=== PATIENT | female | born 1945 | race Caucasian/White ===

== ENCOUNTER 2019-09-14 08:19 | Outpatient (CLI) | payer MEDICARE, BC, SELFPAY ==
[2019-09-14 12:33] LABS: Alanine Aminotransferase 19 U/L (4-35); Albumin Level 4.2 g/dL (3.5-5.1); Alkaline Phosphatase 61 U/L (38-126); Aspartate Amino Transferase 29 U/L (14-36); Bilirubin,Total 0.6 mg/dL (0.2-1.3); Blood Urea Nitrogen 18 mg/dL (7-17); Calcium 9.6 mg/dL (8.4-10.2); Carbon Dioxide 29 mmol/L (22-30); Chloride 99 mmol/L (98-107); Cholesterol 180 mg/dL (0-200); Estimated Glomerular Filt Rate > 60; Glucose 98 mg/dL (65-105); HDL Direct 80 mg/dL; Potassium 4.3 mmol/L (3.4-5.0); Sodium 134 mmol/L (137-145); Triglycerides 101 mg/dL (<150)
[2019-09-14 12:45] LABS: LDL Cholesterol Direct 89 mg/dL
== END 2019-09-14 08:20 | disposition home or self-care (01) ==
PROVIDERS: PCP Internal Medicine; Visit Provider Nurse Practitioner
DX: E78.5 Hyperlipidemia, unspecified (principal)
CPT/HCPCS: 36415; 80053; 80061

== ENCOUNTER 2019-10-05 16:27 | Observation (INO) | payer MEDICARE, BC, SELFPAY ==
[2019-10-05] VITALS (7 sets, daily range): BP systolic 152–192; BP diastolic 71–88; PULSE 60–77; RESP 10–22; TEMP 36.3–37; O2SAT 97–100; BMI 29.9
--- NOTE | ~2019-10-05 | CT_ITS ---
EXAMINATION: CT brain wo con EXAM DATE: 10/05/2019 16:49 INDICATION: Left leg paresthesia. TECHNIQUE: Spiral CT of the head was performed without contrast. Axial, coronal and sagittal images were reviewed. The dose-length product (DLP) for this examination was 605.33 mGy-cm. The exposure w as tailored according to patient size, and iterative reconstruction (ASIR) was used as additional dos e reduction technique. Comparison is made to prior examination from 01/12/2018. FINDINGS: There is no acute intraparenchymal hemorrhage. No evidence of intraparenchymal brain mass lesion. No evidence of acute infarction. Please note that initial head CT has limited sensitivity f or small or acute infarctions. There is mild periventricular and subcortical hypodensity, nonspecific but probably related to small vessel ischemic disease. There is mild prominence of the sulci and v entricles related to cerebral atrophy. There is intracranial carotid arteriosclerosis. There are n o extra-axial collections. There is no mass effect or midline shift. Patient has had bilateral ocul ar lens surgery. Soft tissue is unremarkable. The visualized sinuses and mastoid air cells are well aerated. IMPRESSION: 1. No acute intracranial findings. 2. Chronic age related findings. Reviewed, dictated and finalized at location B. GHT CHECKER
--- NOTE | ~2019-10-05 | MR_ITS ---
EXAMINATION: MR brain/brain stem wo con DATE: 10/06/2019 16:06 INDICATION: Transient ischemic attack. TECHNIQUE: Magnetic resonance imaging (MRI) of the brain and brainstem was performed without intraven ous contrast. Sequences included sagittal and axial T1-weighted FSE, axial diffusion-weighted FS EPI, axial T2*-weighted GRE, axial T2-weighted FLAIR Propeller, and axial T2-weighted Propeller. Apparent diffusion coefficient (ADC) maps were created. COMPARISON: Head CT 10/05/2019 FINDINGS: There are scattered areas of nonspecific increased T2-weighted signal intensity in the cere bral white matter, which is within normal limits for the patient's age. There is no intracranial hemo rrhage, acute infarction, or abnormal intracranial mass lesion. The ventricles are normal in size. Th ere is mild mucosal thickening in the paranasal sinuses. There are likely changes of ocular lens repl acement surgeries. The mastoid air cells are normal. IMPRESSION: 1. Normal aging brain. Reviewed, dictated and finalized at location A. L SPECIALIST IMPRESSION: 1. Normal aging brain.
--- NOTE | ~2019-10-05 | XR_ITS ---
EXAMINATION: XR chest 1V portable DATE: 10/05/2019 16:55 INDICATION: Left hemiparesis. TECHNIQUE: A single frontal view of the chest was obtained. COMPARISON: Chest single view 05/25/2017 FINDINGS: There is no pneumonia, pleural effusion, or pneumothorax. Cardiomegaly is noted. IMPRESSION: 1. Cardiomegaly. Reviewed, dictated and finalized at location A. F RADIATION THERAPIST IMPRESSION: 1. Cardiomegaly.
--- NOTE | 2019-10-05 16:31 | ECG_ITS ---
Measurements Intervals [place] Rate: 66 P: 58 CO: 181 QRS: 19 QRSD: 91 T: 40 QT: 409 QTc: 431 Interpretive Statements SINUS RHYTHM BORDERLINE R WAVE PROGRESSION, ANTERIOR LEADS BASELINE ARTIFACT- I, II, III, AVL BORDERLINE ECG Electronically Signed On 10-05-2019 16:41:11 THERMODYNAMICIST by Ronen Huggins D.O.
[2019-10-05 16:36] LABS: Glucose Point of Care 90 (65-105)
--- NOTE | 2019-10-05 16:44 | PC.NURSE ---
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
--- NOTE | 2019-10-05 16:47 | ED.NEUROSD ---
HPI - Neuro Symptoms/Deficit General Chief Complaint: Suspected CVA Stated Complaint: l leg numbness Time Seen by Provider: 10/05/19 16:55 Source: patient Mode of arrival: ambulatory Limitations: no limitations History of Present Illness HPI Narrative: A 74 y/o female pt presents to the ED, with c/o of LLE weakness and lt facial numbness that began at 1500 (2 hours ago). Pt states she was in the grocery store when she noticed her LLE feeling weak and had difficulty walking, accompanied with lt sided facial numbness. She was able to walk to her car about 10-15 minutes after the leg weakness began, but when she arrived home she noticed her Sx returning and felt dizzy. She states that her LLE weakness has subsided but she still notes having lt sided facial numbness in the ED. Pt states that her facial numbness is not worsening or improving but denies any numbness or tingling to her extremities, or slurred speech. She denies any PMHx of TIA, MT or diabetes but notes having HTN. Pt takes Apirin x 81 mg as her anticoagulation therapy. Pt denies Hx of smoking or drinking. Onset (ago): hour(s) (2) Time: 15:00 Timing confirmed by: spouse Location: left face and left leg Quality: weak (LLE) and numb (lt side facial) Context: sudden onset On Anticoagulants: Yes (Aspirin 81 mg ) Associated symptoms: weakness (LLE) and other (lt sided facial numbness, dizziness, abnormal gait) Related Data Home Medications Medication Instructions Recorded Confirmed aspirin 81 mg tablet,delayed 81 mg PO DAILY 07/29/19 08/05/19 release calcium carbonate 500 mg (1,250 1 tablet PO DAILY 07/29/19 08/05/19 mg)-vitamin D3 400 unit tablet ciclopirox 8 % topical solution 1 applic TOPICAL DAILY 07/29/19 08/05/19 docusate sodium 100 mg capsule 100 mg PO DAILY 07/29/19 08/05/19 Allergies Allergy/AdvReac Type Severity Reaction Status Date / Time meperidine Allergy Unknown Unknown Verified 08/05/19 08:33 MEPERIDINE HCL Allergy Unknown NAUSEA Uncoded 08/05/19 08:33 Review of Systems Review of Systems: All systems reviewed & are unremarkable except as noted in HPI and below Constitutional: Constitutional: Reports weakness (LLE) Musculoskeletal: Musculoskeletal: Reports abnormal gait Neurologic: Reports dizziness, Reports numbness (lt facial) and Denies other (numbness and tingling to extremeties) [facility] Past Medical History Medical History (Updated 10/05/19 @ 18:18 by Kan Denson MD) Anxiety Arthritis Coronary artery disease GERD without esophagitis H/O: HTN (hypertension) Hyperlipidemia Hypothyroidism Hypothyroidism (acquired) Non-ST elevation (NSTEMI) myocardial infarction Surgical History Surgical History (Updated 10/05/19 @ 17:30 by Ade Mtzbesomebody.) History of appendectomy History of cardiac cath Social History Social History (Updated 10/05/19 @ 17:31 by Ade Mtzbesomebody.) Smoking status: Never smoker Alcohol intake: never Living arrangements: with family Gender identity (if verbalized by the patient): Female Exam Narrative: Exam Narrative: General appearance: Well-developed, well-nourished Skin: Normal color Head: Normocephalic, nontraumatic Eyes: Clear conjunctiva ENT: Oropharynx normal, ears normal, nose normal Neck: Supple, nontender Chest and respiratory: Airway patent, no respiratory distress, no accessory muscle use Heart: Regular rate/rhythm Abdomen: Soft, nontender, no organomegaly, quiet bowel sounds Vascular: Normal peripheral pulses, normal capillary refill. Musculoskeletal: Normal range of motion, nontender back Neurologic: Alert and oriented ?3, COMPLIANCE EXAMINER is normal as tested, no gross motor deficit Course Course E
--- NOTE | 2019-10-05 16:48 | PC.NURSE ---
Spoke with SCHUYLER Denson about pt presentation and hx, states he will see her stat when she returns from CT.
--- NOTE | 2019-10-05 17:05 | PC.NURSE ---
SCHUYLER wilburn at bedside with pt.
[2019-10-05 17:12] LABS: Basophils Percent Auto 0.3 % (0.2-1.2); Eosinophils Absolute Auto 0.1 K/mm3 (0-0.3); Eosinophils Percent Auto 1.2 % (0-4.4); Hematocrit 41.8 % (37.0-47.0); Hemoglobin 13.8 g/dL (12.0-15.0); Immature Granulocyte Absolute 0.02 K/mm3 (0.00-0.031); Immature Granulocyte Percent A 0.3 % (0-0.5); Lymphocytes Percent Auto 26.9 % (18.3-44.2); Mean Corpuscular Hemoglobin 29.6 pg (26-34); Mean Corpuscular Volume 89.7 fl (80-100); Mean Platelet Volume 9.5 fl (7.4-10.4); Monocytes Absolute Auto 0.6 K/mm3 (0.1-0.6); Monocytes Percent Auto 7.8 % (2.6-8.5); Neutrophils Absolute Auto 4.7 K/mm3 (1.3-6.7); Neutrophils Percent Auto 63.5 % (45.5-73.1); Platelet Count Result 299 k/mm3 (150-375); Red Blood Count 4.66 M/mm3 (4.2-5.4); Red Cell Distribution Width 13.5 % (11.5-14.5); White Blood Count 7.4 K/mm3 (4.5-10.0)
[2019-10-05] MEDS: ASPIRIN 81 MG CHEWABLE TABLET 324 MG PO (17:19)
[2019-10-05 17:22] LABS: INR 0.9; Partial Thromboplastin Time 27.1 SECONDS (22.3-36.8)
[2019-10-05 17:23] LABS: Blood Urea Nitrogen 12 mg/dL (7-17); Calcium 9.8 mg/dL (8.4-10.2); Carbon Dioxide 28 mmol/L (22-30); Chloride 94 mmol/L (98-107); Estimated CRCL calculation 57 ml/min; Estimated Glomerular Filt Rate > 60; Glucose 95 mg/dL (65-105); Sodium 136 mmol/L (137-145)
[2019-10-05 17:35] LABS: Troponin I < 0.012 ng/mL (0.000-0.034)
[2019-10-05 17:45] LABS: Erythrocyte Sedimentation Rate 13 mm/hr (0-20)
[2019-10-05 17:48] LABS: CRP < 0.5 mg/dL (<1.0)
[2019-10-05 18:06] LABS: Hemoglobin A1C 5.5 % (<5.7)
[2019-10-06] VITALS (7 sets, daily range): BP systolic 133–169; BP diastolic 61–73; PULSE 56–78; RESP 16–18; TEMP 36.1–36.4; O2SAT 96–99
--- NOTE | 2019-10-06 | ECHO_ITS ---
Patient Info Name: Nadja Saab Age: 74 years : 1945 Gender: Female Ht: 62 in Wt: 164 lbs BSA: 1.83 m2 HR: 58 bpm BP: 167 / 69 mmHg Technical Quality: Good Exam Date: 10/06/2019 9:50 AM Exam Location: [facility] Patient Status: Outpatient Admit Date: 10/05/2019 Staff Ordering Physician: Violetta Carrera MD Gas Leak Inspector: Kishore Laura RDCS, RT Attending Provider: Brien Frederick PA-C Referring Physician: Deandre MULTANI; Exam Type: CA echo doppler w bubble study Study Info Indications G45.9 - Transient cerebral ischemic attack, unspecified Complete two-dimensional, color flow and Doppler transthoracic echocardiogram is performed. Summary 1. Left ventricular chamber dimension is normal. 2. Left ventricular systolic function is normal, estimated at 60-65%. 3. The left ventricular diastolic function is abnormal. 4. E/e' 12 is mildly elevated. 5. Global longitudinal strain is normal at -19.4%. 6. Left atrial chamber dimension is moderately enlarged. 7. Dilated inferior vena cava with >50% collapse upon inspiration consistent with elevated right atrial pressure, 10 mmHg. Left Ventricle E/e' 12 is mildly elevated. Global longitudinal strain is normal at -19.4%. Left ventricular chamber dimension is normal. Left ventricular systolic function is normal, estimated at 60-65%. The left ventricular diastolic function is abnormal. Right Ventricle Right ventricular chamber dimension is normal. Right ventricular systolic function is normal. Left Atria Left atrial chamber dimension is moderately enlarged. Right Atria Right atrial chamber dimension is normal. Atrial Septum Patient was able to adequately perform a Valsalva maneuver during the agitated saline injections. Intact interatrial septum visualized by color flow and agitated saline imaging. Aortic Valve The aortic valve is trileaflet. There is no aortic valve stenosis. There is no aortic valve regurgitation. Pulmonic Valve There is no pulmonic regurgitation. Mitral Valve There is no mitral valve stenosis. There is no mitral valve regurgitation. Tricuspid Valve There is no tricuspid valve regurgitation. Pericardium/Pleural There is no pericardial effusion. Inferior Vena Cava Dilated inferior vena cava with >50% collapse upon inspiration consistent with elevated right atrial pressure, 10 mmHg. Aorta The aortic root size at the sinus of Valsalva is normal. Left Ventricular Outflow Tract Name Value Normal LVOT 2D LVOT Diameter 2.0 cm LVOT Doppler LVOT Peak Velocity 88 cm/s LVOT Peak Gradient 3 mmHg LVOT Mean Gradient 2 mmHg LVOT VTI 24 cm LVOT VTI/AV VTI Ratio 0.7 LVOT Stroke Volume 77 ml LVOT CO 4.3 l/min LVOT CI 2.3 l/min/m2 Pulmonic Valve Name Va
--- NOTE | 2019-10-06 02:50 | PM.IMHP ---
H&P: HPI History of Present Illness Chief complaint: tia Narrative: Nadja Saab is a 74 year old female admitted with L foot weak and numbness. Pt went to walk around the [employer] indoor track today morning for 35 mins felt fine, then, went to grocery store, around 3 pm, when she noticed her left foot was weak, she also felt that the left side of her face was numb around her left eye. Pt went to her car drove home and again noticed her foot weak, when she got to her home she had to hold onto the wall to walk. She also felt dizzy at that time. Now pt feels her weakness in her foot is better but her foot still feels numb. Pt has positive family history of stroke on both sides of her family. Pt has history of CAD, HTN and hypothyoidism. Pt lives with her in [place]. Her PCP is DR Webster Review of Systems Review of Systems: All systems reviewed & are unremarkable except as noted in HPI and below Cardiovascular: Cardiovascular: Reports no additional cardiovascular complaints Respiratory: Respiratory: Reports no additional respiratory complaints Gastrointestinal: Gastrointestinal: Reports no additional gastrointestinal complaints Genitourinary: Genitourinary: Reports no additional female genitourinary complaints Musculoskeletal: Comments: Weakness in her foot Neurologic: Comments: left foot weakness and numbess left facial numbness Psychiatric: Psychiatric: Reports anxiety PMFSH Past Medical History Medical History Anxiety Arthritis Coronary artery disease GERD without esophagitis H/O: HTN (hypertension) Hyperlipidemia Hypothyroidism Hypothyroidism (acquired) Non-ST elevation (NSTEMI) myocardial infarction Surgical History Surgical History History of appendectomy History of cardiac cath Family History Family History Father Cerebrovascular accident Mother Cerebrovascular accident Family history of coronary artery disease Sibling Patient's sister is in good health Patient's brother is in good health Other Family history of cardiovascular disease Hypertension Social History Social History Smoking status: Never smoker Alcohol intake: never Substance use: never Living arrangements: with family Gender identity (if verbalized by the patient): Female Spiritual care concerns: No Agree to blood products: No Meds Home Medications and Allergies Home Medications Medication Instructions Recorded Confirmed Type levothyroxine 75 mcg tablet 75 mcg PO DAILY #90 tablet 07/06/19 10/05/19 Rx trazodone 100 mg tablet 50 mg PO DAILY #45 tablet 07/21/19 10/05/19 Rx aspirin 81 mg tablet,delayed 81 mg PO DAILY 07/29/19 10/05/19 History release atorvastatin 20 mg tablet 20 mg PO DAILY #90 tablet 07/29/19 10/05/19 Rx metoprolol succinate 25 mg 25 mg PO DAILY #90 tablet 07/29/19 10/05/19 Rx tablet,extended release 24 hr nifedipine 30 mg tablet,extended 30 mg PO DAILY #90 tablet 07/29/19 10/05/19 Rx release Dulcolax (bisacodyl) 1 tablet PO DAILY PRN 10/05/19 10/05/19 History Os-Serafin 500 + D3 1 tablet PO DAILY 10/05/19 10/05/19 History lisinopril-hydrochlorothiazide 1 tablet PO DAILY 10/05/19 10/05/19 History valacyclovir 1,000 mg PO DAILY PRN 10/05/19 10/06/19 History Allergies Allergy/AdvReac Type Severity Reaction Status Date / Time meperidine Allergy Unknown Unknown Verified 08/05/19 08:33 MEPERIDINE HCL Allergy Unknown NAUSEA Uncoded 08/05/19 08:33 Vital Signs Vital Signs - 24 hr 10/05/19 16:32 10/05/19 16:37 10/05/19 17:08 Temperature 37.0 C Pulse Rate 72 66 68 Respiratory Rate 18 16 22 H Blood Pressure 191/81 H 191/88 H 192/71 H Pulse Oximetry 100 100 99 10/05/19 18:49 10/05/19 19:31 10/05/19 19:54 Tempera
[2019-10-06 06:47] LABS: Cholesterol 182 mg/dL (0-200); HDL Direct 92 mg/dL; Triglycerides 81 mg/dL (<150)
[2019-10-06 06:57] LABS: LDL Cholesterol Direct 78 mg/dL
[2019-10-06] MEDS: lisinopriL 20 MG TABLET PO (09:00)
[2019-10-06] MEDS: NIFEdipine 30 MG TAB.ER.24 PO (09:00)
[2019-10-06] MEDS: hydroCHLOROthiazide 12.5 MG CAPSULE PO (09:00)
[2019-10-06] MEDS: ASPIRIN 81 MG ENTERIC TABLET PO (09:01)
[2019-10-06] MEDS: METOPROLOL SUCCINATE EXT REL 25 MG TABCR PO (09:01)
--- NOTE | 2019-10-06 13:04 | CONS_ITS ---
DATE OF CONSULTATION: HISTORY: This 74 years old right-handed female has been admitted to [facility] through the emergency room for the complaints of left foot weakness and numbness. The patient reportedly walked in indoor track for 35 minutes, felt fine and went to the grocery store around 3:00 p.m. when she noted her left foot was weak. She felt that the left side of her face was also numb around her left eye. She went to her car and drove home and again noted her left foot was weak. She had to hold onto the wall to walk. She felt extremely dizzy. She does have ongoing history of 1. Arthritis. 2. Coronary artery disease. 3. GERD. 4. Hypertension. 5. Hyperlipidemia. 6. Hypothyroidism. 7. Non-ST elevation myocardial infarction. In the past, she has undergone cardiac arrest as well. SOCIAL HISTORY: She does not smoke, does not drink. MEDICATIONS: At the time of admission to the ER, she actually was taking 1. Levothyroxine 75 mcg daily. 2. Trazodone 50 mg daily. 3. Aspirin 81 mg daily. 4. Atorvastatin 20 mg daily. 5. Metoprolol 25 mg daily. 6. Nifedipine 30 daily. 7. Dulcolax 1 tablet daily. 8. Os-Serafin 1 tablet daily. 9. Lisinopril 1 tablet daily. 10. Valacyclovir 1000 mg p.o. daily p.r.n. ALLERGIES: SHE IS ALLERGIC TO MEPERIDINE. PHYSICAL EXAMINATION: VITAL SIGNS: On admission, she was afebrile with pulse 72, respiration 18, blood pressure 191/81, pulse ox was 100%. GENERAL: She was awake, alert, cooperative, in no obvious acute distress. HEENT: Head normocephalic with no cranial bruit. Ear, nose, throat exam was normal. NECK: Supple with no cervical bruit. No thyromegaly. No lymphadenopathy. HEART: Regular. LUNGS: Clear. ABDOMEN: Soft, flabby. Normal bowel sounds. NEUROLOGICAL: She was awake, alert, and oriented x3. Pupils round and regular. Gardner of vision full. Extraocular movements full. Face symmetrical. Tongue midline. Motor examination revealed her to have normal strength and tone. Reflexes were symmetrical. Plantars were downgoing. There is no evidence of gross cerebellar deficit. LABORATORY DATA: Evaluation up until now included normal CBC with WBC 7.4, hemoglobin 13.8. Normal basic metabolic panel with BUN of 12, creatinine of 0.7. As mentioned, she was admitted to the hospital with diagnosis of TIA in addition to the ongoing problems of hyperlipidemia, hypothyroidism, and hypertension. The specific investigation up until now include the head CT scan, which is negative. Chest x-ray, negative with cardiomegaly. Echocardiogram with slight elevated atrial pressure of 10 mmHg and dilated inferior vena cava with more than 50% collapse upon inspiration. Left atrial chamber is moderately enlarged. She is receiving Atrovent, aspirin 81 mg daily, atorvastatin 20 mg daily in addition to the lisinopril 1 p.o. daily, levothyroxine 75 mcg daily, metoprolol 25 mg daily, nifedipine 30 mg daily, trazodone 100 mg daily, and valacyclovir 1000 mg daily. Presumptive diagnosis at this stage is TIA with plan to continue medication as such. The only thing in the long run if necessary, we might repeat the MRI. AMADO LUGO M.D. HEEL SEAT SANDER HEEL SEAT SANDER D Daljit MT: Denise
--- NOTE | 2019-10-06 17:49 | PM.DS ---
DS: Diagnosis Admitting Diagnosis Admitting Diagnosis: Transient cerebral ischemic attack, unspecified Discharge Diagnosis (1) Brain TIA: Code(s): G45.9 - Transient cerebral ischemic attack, unspecified Status: Acute Assessment and Plan: Pt admitted for stroke work up, CT head was negative showing only chronic changes. MRI showed normal aging brain. Echo grossly unremarkable with intact atrial septum. Pt given 325 mg ASA in ED. PT/OT was unable to evaluate patient. Patient's symptoms have nearly resolved with her left foot not feeling back to normal . Dr. Willis consulted and appreciate recommendations. He has okayed patient for discharge from his standpoint. Per Dr. Willis recommendations, will continue aspirin and recommend no driving until follow up with him. Follow up with PCP after discharge (2) Hyperlipidemia LDL goal <100: Code(s): E78.5 - Hyperlipidemia, unspecified Status: Acute Assessment and Plan: Lipid panel unremarkable. Continue atorvastatin (3) Hypothyroidism (acquired): Code(s): E03.9 - Hypothyroidism, unspecified Status: Acute Assessment and Plan: Continue levothyrxoxine 75mcg po qdaily (4) Essential hypertension: Code(s): I10 - Essential (primary) hypertension Status: Acute Assessment and Plan: Bp is currently 133/73 Continue home medications on discharge DS: Summary Hospital Course Reason for hospitalization: Left foot weakness/numbness; r/o acute CVA Hospital Course: Patient is a 74 yo F with history of CAD, HTN, HLD, and anxiety who presented to the ER on 10/05 with complaints of LLE weakness and left facial numbness. Patient felt her symptoms came on while in the grocery store roughly 15:00 on 10/05 (roughly 1.5 hours prior to arrival); she drove home from the grocery store and noticed that she had to hold onto the wall of her home to aid in ambulation; she had associated dizziness as well. While in ER, CT of the head was negative for acute intracranial findings. Please see H&P for further details. Presenting VS: BP 191/81, HR 72, RR 18, temp 98.6, sat 100% RA Presenting Pertinent labs: Troponin negative x 1, CRP WNL, triglycerides 81, cholesterol 182, LDL 78, HDL 92. POC BGL was 90; A1c 5.5. BMP, CBC, coags otherwise unremarkable Micro: none Imagin/[address] IMPRESSION: 1. No acute intracranial findings. 2. Chronic age related findings. 10/05 CXR IMPRESSION: 1. Cardiomegaly. 10/06 Echo Summary 1. Left ventricular chamber dimension is normal. 2. Left ventricular systolic function is normal, estimated at 60-65%. 3. The left ventricular diastolic function is abnormal. 4. E/e' 12 is mildly elevated. 5. Global longitudinal strain is normal at -19.4%. 6. Left atrial chamber dimension is moderately enlarged. 7. Dilated inferior vena cava with >50% collapse upon inspiration consistent with elevated right atrial pressure, 10 mmHg. Intact interatrial septum visualized by color flow and agitated saline imaging. 10/06 brain MRI IMPRESSION: 1. Normal aging brain. ECG: Interpretive Statements SINUS RHYTHM BORDERLINE R WAVE PROGRESSION, ANTERIOR LEADS BASELINE ARTIFACT- I, II, III, AVL BORDERLINE ECG Patient was admitted to the hospitalist service for further evaluation for LLE weakness/numbness and facial numbness; Dr. Willis (Neurology) was consulted for further input/recommendations. As noted above, further imaging/labs were unremarkable for acute CVA. Neurology assessed patient and felt that symptoms were likely result of possible TIA, although patient's symptoms did not completely resolve by day of discharge. Neurology recommended no driving until follow up with Dr. Willis in 6-8 weeks; patient was cleared for discharge from Neurology standpoint on 10/06. Bunny
--- NOTE | 2019-10-07 11:57 | PC.NURSE ---
Discharge callback placed on 10/07/2019 at 1135. Patient verbalized questions r/t PT evaluation. Patient was taken to MRI during PT evaluation, thus interrupting the evaluation. Patient was instructed to follow up with primary provider regarding need for PT.
== END 2019-10-06 18:39 | disposition home or self-care (01) ==
LOC: ANHED 18:18 → ANH3MED 19:03
PROVIDERS: Family Medicine; Admitting Provider Internal Medicine; Emergency Provider Emergency Medicine; PCP Internal Medicine; Visit Provider Family Medicine
DX: G45.9 Transient cerebral ischemic attack, unspecified (principal); E78.5 Hyperlipidemia, unspecified; E03.9 Hypothyroidism, unspecified; I10 Essential (primary) hypertension; I25.10 Atherosclerotic heart disease of native coronary artery without angina pectoris; K21.9 Gastro-esophageal reflux disease without esophagitis; M19.90 Unspecified osteoarthritis, unspecified site; I25.2 Old myocardial infarction; Z79.82 Long term (current) use of aspirin; Z79.899 Other long term (current) drug therapy; Z86.74 Personal history of sudden cardiac arrest
CPT/HCPCS: 36415; 70450; 70551; 71045; 80048; 80061; 82948; 83036; 84484; 85025; 85610; 85652; 85730; 86140; 93005; 93306; 96375; 97161; 99285; A9270; G0378

== ENCOUNTER 2019-10-16 10:59 | Outpatient (CLI) | payer MEDICARE, BC, SELFPAY ==
--- NOTE | 2019-10-21 07:54 | WPDHOLTEREM ---
Holter/Event Monitor Holter/Event Monitor Date of procedure: 10/16/19 Procedure Type: 48 hour holter monitor Indications: Circulatory system disorder Conclusion: 1. 48 hour holter monitor on 10/16/19. 2. Predominant rhythm is sinus rhythm. HR range 43-135 bpm; average HR 73 bpm. 3. There are 868 premature supraventricular complexes, 2 supraventricular couplets, 269 supraventricular trigeminy. 2 runs of atrial tachycardia, fastest at 152 bpm and longest lasting 9 beats. 4. There are 3,658 premature ventricular complexes, 3 ventricular couplets, 6 ventricular bigeminy and 6 ventricular trigeminy. No ventricular tachycardia. 5. No sinoatrial or atrioventricular blocks. No significant pauses greater than 2 seconds. 6. No symptoms available for correlation.
== END 2019-10-16 11:00 | disposition home or self-care (01) ==
PROVIDERS: PCP Internal Medicine; Visit Provider Nurse Practitioner
DX: I99.8 Other disorder of circulatory system (principal); I10 Essential (primary) hypertension
CPT/HCPCS: 93225; 93226

== ENCOUNTER 2019-10-26 11:58 | Outpatient (CLI) | payer MEDICARE, BC, SELFPAY ==
[2019-10-26 14:06] LABS: Thyroid Stimulating Hormone 0.329 uIU/mL (0.465-4.680)
== END 2019-10-26 11:59 | disposition home or self-care (01) ==
LOC: ANHWCLAB 12:02
PROVIDERS: PCP Internal Medicine; Visit Provider Internal Medicine
DX: R53.83 Other fatigue (principal)
CPT/HCPCS: 36415; 84443

== ENCOUNTER 2019-11-12 10:15 | Outpatient (RCR) | payer MEDICARE, BC, SELFPAY ==
--- NOTE | 2019-10-27 11:42 | PTOPEVAL ---
PHYSICAL THERAPY EVALUATION AND PLAN OF CARE 10-27-2019 PT evaluation was completed today and the plan of treatment is scheduled for 2x/week for 3 weeks, to increase LE strength, gait and balance skills, with education for home exercise program. Thank you for referring Nadja to [facility]. Please review, sign, date and return this plan of care PATRICIA. I agree with and certify that the following plan of care is medically necessary. Referring Physician Date Attending Provider: Marylu Gtz, ELISHA *PT Outpatient Evaluation Start: 10/27/19 10:38 Document 10/27/19 10:35 FARIDA (Rec: 10/27/19 11:38 FARIDA [id number]) Therapy Assessment Status Assessment Status Assessment Status Evaluation Outpatient Past Medical History Neurological History Hx Migraine Yes: history of migraines, not had lately, possibly due to meds Hx Transient Ischemic Attacks (TIA) Yes: 10/05/19 Cardiovascular History Hx Congestive Heart Failure Yes Hx Hypercholesterolemia Yes: meds Hx Hypertension Yes: meds Hx Myocardial Infarction Yes: 2012 Respiratory History Hx Respiratory Disorders No Significant History Gastrointestinal History Hx Appendectomy Yes: 1975 Hx Gastroesophageal Reflux Disease Yes Hx Other Gastrointestinal Disorders Yes: constipation Genitourinary History Hx Genitourinary Disorders No Significant History Musculoskeletal History Hx Arthritis Yes: knee and elbow issues/ pain;swollen ankles and tenderness Hx Other Musculoskeletal Disorders Yes: Left shoulder arthroscopy with frozen shoulder;B hip bursitis Hematological History Hx Hematological Disorders No Significant History Endocrine History Hx Hypothyroidism Yes: meds HEENT History Hx Cataracts Yes Integumentary History Hx Skin Disorders No Significant History Reproductive History Hx Endometriosis Yes Psychosocial History Hx Psychiatric Disorders No Significant History Pain History History of Any Previous or Ongoing No Significant History Instance of Pain Anesthesia History Hx Anesthesia Reactions No Significant History Other History Hx Other Surgeries Yes: cyst removed from hand Evaluation Information Problem Diagnosis musculoskeletal issues Onset Sep 22, 2019 Subjective Information to ER due to L lower leg Query Text:As Reported By Patient/ feeling funny when walking Family and grocery shopping about 3 weeks ago; another incident, when walking, stumbled over L
--- NOTE | 2019-11-12 10:47 | PTOPEVAL ---
PHYSICAL THERAPY DISCHARGE 11-12-2019 Mrs. Saab has received 4 Physical Therapy sessions, from October 26 to today, for the diagnosis of muscle weakness. She has improved in all areas--increased LE strength, balance and gait tolerance. Education has been completed for her home exercise program. All goals were achieved, therefore, she will be discharged from PT services. Thank you for referring Trish to [facility]. Please review, sign, date and return this discharge PATRICIA. I agree with and certify that the following plan of care is medically necessary. Referring Physician Date Attending Provider: Marylu Gtz, ELISHA *PT Outpatient Discharge Document 11/12/19 10:05 FARIDA (Rec: 11/12/19 10:38 FARIDA [id number]) Subjective Information Nadja reports: feels Query Text:As Reported By Patient/ stronger in legs; no problems Family with walking, walked 35 minutes outside yesterday; doing HEP without any problems , feels like ready to be done with therapy; Pain Assessment Timing of Pain Assessment Timing of Pain Assessment Assessment Self Report Self Report Pain Level 0 Pain Score Pain Score 0: Self Report Additional Pain Score Comments little sore in R knee after leg press last session- weights may have been too much Lower Extremity Muscle Strength Testing General Lower Extremity Strength Gross Lower Extremity Strength sitting R and L ankle DF with heel on floor 20 reps with equal ROM; ankle circles R and L clock and counter clock teague with good control and full ROM x 20 reps; standing R and L hip with 1 UE hold, 20 reps: abduct, extension and flexion; verbal review of HEP, no questions or concerns using green theraband and doing without problems; 25' walk side R, side L and backwards B PF x 20 reps without UE hold ; Balance Assessment Adame Balance Assessment Sitting to Standing Independent w/out Hands Unsupported Stance Ability Safely- 2 minutes Sitting Unsupported, Feet on Floor Safely- 2 minutes Standing to Sitting Safely, Minimal Hand Use Transfer Ability Safely, Minimal Hand Use Unsupported Stance- Eyes Closed Safely, 10 seconds Unsupported Stance- Feet Together Independent, 1 minute Reac
== END 2019-11-12 14:29 | disposition home or self-care (01) ==
LOC: ANHPT 10:15
PROVIDERS: PCP Internal Medicine; Visit Provider Nurse Practitioner
DX: R29.898 Other symptoms and signs involving the musculoskeletal system (principal)
CPT/HCPCS: 97110; 97161

== ENCOUNTER 2019-12-30 11:37 | Outpatient (CLI) | payer MEDICARE, BC, SELFPAY ==
[2019-12-30 14:21] LABS: Thyroid Stimulating Hormone 0.642 uIU/mL (0.465-4.680)
== END 2019-12-30 11:38 | disposition home or self-care (01) ==
PROVIDERS: PCP Internal Medicine; Visit Provider Internal Medicine
DX: E03.9 Hypothyroidism, unspecified (principal)
CPT/HCPCS: 36415; 84443

== ENCOUNTER 2020-06-07 09:21 | Outpatient (CLI) | payer MEDICARE, BC, SELFPAY ==
[2020-06-07 09:55] LABS: Alanine Aminotransferase 16 U/L (4-35); Albumin Level 4.2 g/dL (3.5-5.1); Alkaline Phosphatase 52 U/L (38-126); Anion Gap 5 mmol/L (8-16); Aspartate Amino Transferase 29 U/L (14-36); Bilirubin,Total 0.4 mg/dL (0.2-1.3); Blood Urea Nitrogen 14 mg/dL (7-17); Calcium 9.5 mg/dL (8.4-10.2); Carbon Dioxide 34 mmol/L (22-30); Chloride 98 mmol/L (98-107); Cholesterol 177 mg/dL (0-200); Estimated Glomerular Filt Rate > 60; Glucose 101 mg/dL (65-105); HDL Direct 81 mg/dL; Potassium 4.1 mmol/L (3.4-5.0); Sodium 137 mmol/L (137-145); Triglycerides 113 mg/dL (<150)
[2020-06-07 10:06] LABS: LDL Cholesterol Direct 77 mg/dL
[2020-06-07 10:25] LABS: Thyroid Stimulating Hormone 0.575 uIU/mL (0.465-4.680)
== END 2020-06-07 09:22 | disposition home or self-care (01) ==
PROVIDERS: PCP Internal Medicine; Visit Provider Internal Medicine
DX: E03.9 Hypothyroidism, unspecified (principal); E78.5 Hyperlipidemia, unspecified; I10 Essential (primary) hypertension; Z79.899 Other long term (current) drug therapy
CPT/HCPCS: 36415; 80053; 80061; 84443

== ENCOUNTER 2020-08-05 11:43 | Outpatient (NON) | payer MEDICARE, BC, SELFPAY ==
[2020-08-05 23:21] LABS: SARS-CoV-2 RNA PCR Positive
== END 2020-08-05 11:44 ==
LOC: ANHCOVIDDT 11:45
PROVIDERS: PCP Internal Medicine; Visit Provider Internal Medicine
DX: U07.1 COVID-19 (principal)
CPT/HCPCS: 87635; C9803; U0003

== ENCOUNTER 2020-09-23 13:26 | Outpatient (CLI) | payer MEDICARE, BC, SELFPAY ==
[2020-09-23 14:04] LABS: Anion Gap 2 mmol/L (8-16); Blood Urea Nitrogen 16 mg/dL (7-17); Calcium 9.5 mg/dL (8.4-10.2); Carbon Dioxide 33 mmol/L (22-30); Chloride 101 mmol/L (98-107); Estimated Glomerular Filt Rate > 60; Glucose 115 mg/dL (65-105); Potassium 3.7 mmol/L (3.4-5.0); Sodium 136 mmol/L (137-145)
== END 2020-09-23 13:27 | disposition home or self-care (01) ==
LOC: ANHSURGERY 13:29
PROVIDERS: Anesthesiology; Family Provider Internal Medicine; PCP Internal Medicine; Visit Provider Podiatrist Foot & Ankle Surgery
DX: Z01.818 Encounter for other preprocedural examination (principal); Z79.899 Other long term (current) drug therapy
CPT/HCPCS: 36415; 80048

== ENCOUNTER 2020-09-30 01:38 | Day surgery (SDC) | payer MEDICARE, BC, SELFPAY ==
[2020-09-22 11:27] VITALS: BMI 29.0
--- NOTE | 2020-09-29 16:22 | WPDANESEPPF ---
Anes - Initial Pre Proc Eval Procedure: Operation Date: 09/30/20 10:00 Proposed Procedures p Fifth Metatarsal Head Resection Left Foot, - Ulisses Regalado JR, MD s Exostectomy Left Fifth Digit - Ulisses Regalado JR, MD Date/Time: 09/29/20 16:22 Surgeon: Ulisses Regalado JR, MD Pre Op Diagnosis: Tailor's Bunion Left ft, Bone spur Left 5th digit Patient Data Age: 75 Gender: F Height: 1.57 m Weight: 72 kg Allergies Allergy/AdvReac Type Severity Reaction Status Date / Time meperidine AdvReac Unknown Vomiting Verified 09/30/20 08:36 Home Medications Medication Instructions Recorded Confirmed Type aspirin 81 mg tablet,delayed 81 mg PO DAILY 07/29/19 09/22/20 History release metoprolol succinate 25 mg 25 mg PO DAILY #90 tablet 07/29/19 09/22/20 Rx tablet,extended release 24 hr Dulcolax (bisacodyl) 1 tablet PO BID PRN 10/05/19 09/22/20 History lisinopril-hydrochlorothiazide 1 tablet PO QAM 10/05/19 09/22/20 History valacyclovir 2,000 mg PO BID PRN 10/05/19 09/22/20 History atorvastatin 20 mg PO HS 09/22/20 09/22/20 History calcium carbonate-vitamin D3 1 tablet PO BID 09/22/20 09/22/20 History [Calcium + D] fluticasone propionate 2 spray NASAL DAILY PRN 09/22/20 09/22/20 History levothyroxine 75 mcg PO DIRECTED 09/22/20 09/22/20 History nifedipine 30 mg PO QAM 09/22/20 09/22/20 History trazodone 50 mg PO HS 09/22/20 09/22/20 History Patient hx anesthesia problems: none Family hx anesthesia problems: none PMFSH Past Medical History Medical History (Updated 06/07/20 @ 08:37 by Jorje Oreilly APRN) Anxiety Arthritis Coronary artery disease GERD without esophagitis H/O: HTN (hypertension) Hyperlipidemia Hypothyroidism Hypothyroidism (acquired) Non-ST elevation (NSTEMI) myocardial infarction Surgical History Surgical History History of appendectomy History of cardiac cath Family History Family History Father Cerebrovascular accident Mother Cerebrovascular accident Family history of coronary artery disease Sibling Patient's sister is in good health Patient's brother is in good health Other Family history of cardiovascular disease Hypertension Social History Social History Smoking status: Never smoker Alcohol intake: never Alcohol use details: SOCIAL DRINKER IN PAST Substance use: never Living arrangements: with family Additional living arrangements comments: Gender identity (if verbalized by the patient): Female Spiritual care concerns: No Agree to blood products: No Anes - Eval Final PreProcedure Day of Procedure 09/29/20 16:22 Patient weight: overweight Heart: regular rate and rhythm Lungs: clear to auscultation and normal air movement Airway: Mallampati scale class II Neurological: alert and oriented Last oral intake: >/= 8 hours ASA classification: III Emergent: no Anesthetic plan: proceed Anesthesia type and monitoring: general GIVS and LMA Informed Consent: The patient's anesthetic plan and its attendant risks and benefits were discussed with the patient/family/POA. Questions were solicited and answers provided to the satisfaction of the patient/family/POA.
--- NOTE | ~2020-09-30 | XR_ITS ---
EXAMINATION: XR surgery orthopedic EXAM DATE: 09/30/2020 10:49 INDICATION: Left foot, 5th metatarsal head resection, exostosis. TECHNIQUE: Fluoroscopy used during XR surgery orthopedic performed by Dr. Ulisses Regalado JR MD. The DAP for this procedure was0.067 cGycm2. FINDINGS: Surgical changes at the 5th metatarsal head. Correlate with procedure note. IMPRESSION: Fluoroscopy used during left 5th metatarsal surgery. Reviewed, dictated and finalized at location B. T OR [facility]
--- NOTE | 2020-09-30 07:14 | WPDHPUPDATE1 ---
History and Physical Update Update Date/Time: 09/30/20 07:14 History and Physical has been reviewed, including an updated exam of the patient. There are NO changes in the patient's condition. Risks, benefits, and alternatives have been discussed and questions answered. Patient agrees to proceed with procedure.
[2020-09-30] MEDS: LACTATED RINGERS 1,000 ML 30 ML IV CONT (08:46)
[2020-09-30] MEDS: ceFAZolin 2 GM/D5W 50 ML 2 GM/50 ML BAG IVPB (10:12)
[2020-09-30] MEDS: BUPIVACAINE HCL 0.5% PF 30 ML VIAL INFILTRATE (10:12)
[2020-09-30 10:57] VITALS: BP 104/53; PULSE 57; RESP 10; O2SAT 98
--- NOTE | 2020-09-30 11:09 | P.OP_ITS ---
Procedure Note - Detailed Date of procedure: 09/30/20 Pre-op diagnosis: Tailor's Bunion Left ft, Bone spur Left 5th digit Procedure performed: 1. Removal of bone spur left 5th toe 2. 5th metatarsal head resection left foot Anesthesia: GLMA and local Surgeon: Ulisses Regalado JR, MD Estimated blood loss (mL): 1 Drains: No Packing: No Pathology: none sent Complications: No immediate complications Condition: stable Disposition: same day Findings: Under mild sedation, the patient was brought to the operating room, placed on the operating table in the supine position. A pneumatic ankle tourniquet was placed about the patient's ankle. Following general anesthesia, I performed a proximal fifth metatarsal Carrillo Block. The foot was then scrubbed, prepped, and draped in the usual aseptic manner. An Esmarch bandage was then used to examine the patient's foot and pneumatic ankle tourniquet was then inflated. Surgery began in the following manner. Attention was directed to the dorsal lateral aspect of the fifth metatarsal head and 5th digit of the foot where a linear incision was made starting at the head of the proximal phalanx extending to the the distal 5th metatarsal. All bleeders were cauterized as necessary. A full-length periosteal incision was made overlying the fifth metatarsal phalangeal joint, I freed the head of the 5th metatarsal and resected the head of the 5th metatarsal with an oscillating bone saw. I also made a transverse incision to the proximal interphalangeal joint dorsally. I resected the dorsal lateral spur and small segment of the distal proximal phalanx. 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 Fluoroscopy was used to make sure that adequate bone resection was performed. The capsular and periosteal tissue was reapproximated with 4.0 vicryl. Next, the skin was reapproximated and coapted with 4-0 Prolene in simple and horizontal interrupted suture fashion technique. Upon completion of the procedure, the incision was dressed with Adaptic, 4 x 4's, Kerlix, and Coban. The pneumatic ankle tourniquet was then deflated and a prompt hyperemic response noted to all digits of the foot. A surgical shoe was then applied. The patient did very well with the procedure and the anesthesia. The patient was transferred to the recovery room with vital signs stable and vascular status intact to all remaining toes of the affected foot. Following a period of postop erative monitoring, the patient will be discharged home on the following written and oral postoperative instructions: 1. Keep the dressing clean, dry, and intact. Use a cast protector bag with showers. 2. The patient should use a surgical shoe for ambulation postoperatively. 3. The patient should be on bedrest with bathroom privileges and elevate the affected foot when at rest. 4. The patient to contact Dr. Regalado for all postop care and if any problems arise. 5. Prescriptions were written for Percocet 5/325 dispensed 40 to be taken 1 p.o. q.4 to 6 hours as needed for severe pain.
[2020-09-30 11:20] VITALS: BP 129/67; PULSE 56; RESP 12; O2SAT 98
[2020-09-30 11:50] VITALS: BP 128/82; PULSE 59; RESP 14
[2020-09-30 12:15] VITALS: BP 128/78; PULSE 59; RESP 14
== END 2020-09-30 12:32 | disposition home or self-care (01) ==
PROVIDERS: Family Provider Internal Medicine; PCP Internal Medicine; Visit Provider Podiatrist Foot & Ankle Surgery
PROC: (CPT 28104; principal; 2020-09-30 10:00)
PROC: (CPT 28110; 2020-09-30 10:00)
DX: M21.622 Bunionette of left foot (principal); M25.775 Osteophyte, left foot; E03.9 Hypothyroidism, unspecified; I10 Essential (primary) hypertension; M19.90 Unspecified osteoarthritis, unspecified site; E78.00 Pure hypercholesterolemia, unspecified; I25.2 Old myocardial infarction; I25.10 Atherosclerotic heart disease of native coronary artery without angina pectoris; F41.9 Anxiety disorder, unspecified; K21.9 Gastro-esophageal reflux disease without esophagitis; Z79.82 Long term (current) use of aspirin
CPT/HCPCS: 28110; 28124; C9290; J0690; J1100; J2405; J2704; J3010; J7120

== ENCOUNTER 2020-12-01 12:57 | Outpatient (CLI) | payer MEDICARE, BC, SELFPAY ==
[2020-12-01 13:57] LABS: Alanine Aminotransferase 16 U/L (4-35); Albumin Level 4.3 g/dL (3.5-5.1); Alkaline Phosphatase 55 U/L (38-126); Anion Gap 3 mmol/L (8-16); Aspartate Amino Transferase 29 U/L (14-36); Bilirubin,Total 0.4 mg/dL (0.2-1.3); Blood Urea Nitrogen 15 mg/dL (7-17); Calcium 9.3 mg/dL (8.4-10.2); Carbon Dioxide 34 mmol/L (22-30); Chloride 99 mmol/L (98-107); Cholesterol 173 mg/dL (0-200); Estimated Glomerular Filt Rate > 60; Glucose 89 mg/dL (65-105); HDL Direct 85 mg/dL; Sodium 136 mmol/L (137-145); Triglycerides 78 mg/dL (<150)
[2020-12-01 14:08] LABS: LDL Cholesterol Direct 66 mg/dL
[2020-12-01 14:26] LABS: Thyroid Stimulating Hormone 0.526 uIU/mL (0.465-4.680)
== END 2020-12-01 12:58 | disposition home or self-care (01) ==
LOC: ANHLAB 13:01
PROVIDERS: PCP Internal Medicine; Visit Provider Nurse Practitioner
DX: E78.5 Hyperlipidemia, unspecified (principal); E03.9 Hypothyroidism, unspecified
CPT/HCPCS: 36415; 80053; 80061; 84443

== ENCOUNTER 2020-12-26 18:42 | Inpatient (IN) | payer MEDICARE, BC, SELFPAY ==
[2020-12-26] VITALS (28 sets, daily range): BP systolic 138–195; BP diastolic 55–131; PULSE 65–84; RESP 11–23; TEMP 36.4–36.7; O2SAT 97–100; BMI 30.2
--- NOTE | ~2020-12-26 | XR_ITS ---
EXAMINATION: XR chest 1V portable DATE: 12/26/2020 19:13 INDICATION: Cerebrovascular accident. TECHNIQUE: A single frontal view of the chest was obtained. COMPARISON: Chest single view 10/05/2019 FINDINGS: There is no pneumonia, pleural effusion, or pneumothorax. Cardiomegaly is noted. IMPRESSION: 1. Cardiomegaly. Reviewed, dictated and finalized at location A. IMPRESSION: 1. Cardiomegaly.
--- NOTE | ~2020-12-26 | CT_ITS ---
EXAMINATION: CTA brain carotid DATE: 12/26/2020 20:04 INDICATION: Headache. Weakness. TECHNIQUE: Computed tomographic angiography (CTA) of the head was performed without and with 100 mL O mnipaque-350 intravenous contrast. CTA of the neck was performed with intravenous contrast. Automated exposure control and iterative reconstruction technique were employed. The dose-length product was 1 572.24 mGy-cm. Maximum intensity projection and volume rendered 3D-reconstructions were created by deidre hartmann technologist on a separate workstation. COMPARISON: Head CT 10/05/2019, brain MRI 10/06/2019 FINDINGS: HEAD CTA: There are scattered areas of low attenuation in the cerebral white matter, which is within normal limits for the patient's age. There is no intracranial hemorrhage, acute infarction, or abnorm al intracranial mass lesion. The ventricles are normal in size. There are likely changes of ocular le ns replacement surgeries. There is mild mucosal thickening in the paranasal sinuses. The mastoid air cells are normal. The vertebral arteries are codominant. There is no significant stenosis of basilar artery or the posterior cerebral arteries. There is no significant stenosis of the intracranial inter nal carotid arteries or anterior or middle cerebral arteries. There is a 2 mm infundibulum of left po sterior communicating artery. Right posterior communicating artery is normal. Anterior communicating artery is normal. There is no aneurysm. NECK CTA: There are no pathologically enlarged lymph nodes. There is no significant stenosis of the v ertebral arteries. There is mild plaque in proximal left internal carotid artery. There is 0% stenosi s of the proximal right internal carotid artery relative to normal distal artery lumen diameter (NASC ET criteria). There is 0% stenosis of the proximal left internal carotid artery relative to normal di stal artery lumen diameter. There is moderate cervical spondylosis. IMPRESSION: 1. Normal aging brain. No aneurysm or significant intracranial arterial stenosis. 2. 0% stenosis of the proximal internal carotid arteries relative to normal distal artery lumen diame ters (NASCET criteria). Reviewed, dictated and finalized at location A. IMPRESSION: 1. Normal aging brain. No aneurysm or significant intracranial arterial stenosi s. 2. 0% stenosis of the proximal internal carotid arteries relative to normal dis sidney artery lumen diameters (NASCET criteria).
--- NOTE | ~2020-12-26 | MR_ITS ---
EXAMINATION: MR brain/brain stem wo/w con DATE: 12/27/2020 13:08 INDICATION: Cerebrovascular accident. TECHNIQUE: Magnetic resonance imaging (MRI) of the brain and brainstem was performed without and with 15 mL MultiHance intravenous contrast. Sequences included sagittal and axial T1-weighted FSE, axial diffusion-weighted FS EPI, axial T2*-weighted GRE, axial T2-weighted FLAIR Propeller, and axial T2-we ighted Propeller. Postcontrast sequences included axial and coronal T1-weighted FSE. Apparent diffusi on coefficient (ADC) maps were created. COMPARISON: Brain MRI 10/06/2019, head CT 12/26/2020 FINDINGS: There are scattered areas of nonspecific increased T2-weighted signal intensity in the cere bral white matter, which is within normal limits for the patient's age. There is no intracranial hemo rrhage, acute infarction, or abnormal intracranial mass lesion. The ventricles are normal in size. Th ere are likely changes of ocular lens replacement surgeries. The paranasal sinuses are clear. The mas toid air cells are normal. IMPRESSION: 1. Normal aging brain. Reviewed, dictated and finalized at location A. IMPRESSION: 1. Normal aging brain.
--- NOTE | 2020-12-26 18:56 | ECG_ITS ---
Measurements Intervals [place] Rate: 66 P: 20 [place]: 187 QRS: -1 QRSD: 81 T: 45 QT: 393 QTc: 413 Interpretive Statements SINUS RHYTHM BORDERLINE R WAVE PROGRESSION, ANTERIOR LEADS BORDERLINE ECG Electronically Signed On 12-26-2020 20:35:48 CDT by Ronen Huggins D.O.
[2020-12-26 19:33] LABS: Basophils Percent Auto 0.1 % (0.2-1.2); Eosinophils Absolute Auto 0.1 K/mm3 (0-0.3); Eosinophils Percent Auto 1.1 % (0-4.4); Hematocrit 38.1 % (37.0-47.0); Hemoglobin 12.7 g/dL (12.0-15.0); Immature Granulocyte Absolute 0.02 K/mm3 (0.00-0.031); Immature Granulocyte Percent A 0.2 % (0-0.5); Lymphocytes Absolute Auto 1.72 K/mm3 (0.9-3.2); Lymphocytes Percent Auto 20.4 % (18.3-44.2); Mean Corpuscular HGB Conc 33.3 g/dl (32-36); Mean Corpuscular Volume 90.1 fl (80-100); Mean Platelet Volume 9.4 fl (7.4-10.4); Monocytes Absolute Auto 0.7 K/mm3 (0.1-0.6); Monocytes Percent Auto 8.5 % (2.6-8.5); Neutrophils Absolute Auto 5.9 K/mm3 (1.3-6.7); Neutrophils Percent Auto 69.7 % (45.5-73.1); Platelet Count Result 248 k/mm3 (150-375); Red Blood Count 4.23 M/mm3 (4.2-5.4); Red Cell Distribution Width 12.8 % (11.5-14.5); White Blood Count 8.4 K/mm3 (4.5-10.0)
[2020-12-26 19:38] LABS: Anion Gap 6 mmol/L (8-16); Blood Urea Nitrogen 19 mg/dL (7-17); Calcium 9.5 mg/dL (8.4-10.2); Carbon Dioxide 30 mmol/L (22-30); Chloride 101 mmol/L (98-107); Estimated CRCL calculation 40 ml/min; Estimated Glomerular Filt Rate 54; Glucose 92 mg/dL (65-105); Sodium 137 mmol/L (137-145)
[2020-12-26 19:39] LABS: INR 0.9; Prothrombin Time 12.3 Seconds (11.1-14.7)
[2020-12-26 19:40] LABS: Partial Thromboplastin Time 20.1 SECONDS (22.3-36.8)
--- NOTE | 2020-12-26 19:45 | ED.GENADULT ---
HPI - General Adult General Chief complaint: Weakness <JEOVANNY Deleon Last Filed: 12/26/20 21:14> Stated complaint: weakness and confusion <JEOVANNY Deleon Last Filed: 12/26/20 21:14> Time Seen by Provider: 12/26/20 18:52 <JEOVANNY Deleon Last Filed: 12/26/20 21:14> Source: patient, family, EMS, RN notes reviewed and old records reviewed <JEOVANNY Deleon Last Filed: 12/26/20 21:14> Mode of arrival: EMS <JEOVANNY Deleon Last Filed: 12/26/20 21:14> Limitations: no limitations <EJOVANNY Deleon Last Filed: 12/26/20 21:14> History of Present Illness HPI narrative: Patient is a 75-year-old female who notes that 5:00 she was with her watching TV when she started to see spots and had difficulty speaking and felt confused and weak EMS was contacted thereafter and presents to emergency department noting that the symptoms have resolved aside from a mild left frontal headache. Patient notes in September of last year she had had a TIA. Patient notes that she has been compliant with her medications. Patient notes last night she has slight congestion and took Flonase but otherwise has been healthy denies any injury or trauma or other illness. On arrival patient resting comfortably in the room in no distress and does not appear uncomfortable. Patient's is present on arrival <JEOVANNY Deleon Last Filed: 12/26/20 21:14> Related Data Home medications: Home Medications Medication Instructions Recorded Confirmed aspirin 81 mg tablet,delayed 81 mg PO DAILY 07/29/19 12/06/20 release Dulcolax (bisacodyl) 1 tablet PO BID PRN 10/05/19 12/06/20 lisinopril-hydrochlorothiazide 1 tablet PO QAM 10/05/19 12/06/20 valacyclovir 2,000 mg PO BID PRN 10/05/19 12/06/20 calcium carbonate-vitamin D3 1 tablet PO BID 09/22/20 12/06/20 fluticasone propionate 2 spray NASAL DAILY PRN 09/22/20 12/06/20 levothyroxine 75 mcg PO DIRECTED 09/22/20 12/06/20 nifedipine 30 mg PO QAM 09/22/20 12/06/20 <Leobardo Metz PA-C - Last Filed: 12/26/20 21:14> Allergies/adverse reactions: Allergies Allergy/AdvReac Type Severity Reaction Status Date / Time meperidine AdvReac Severe Vomiting Verified 12/26/20 18:50 <Leobardo Metz PA-C - Last Filed: 12/26/20 21:14> Review of Systems Review of Systems: All systems reviewed & are unremarkable except as noted in HPI and below <Leobardo Metz PA-C - Last Filed: 12/26/20 21:14> [facility] Past Medical History Medical History: Medical History (Updated 12/26/20 @ 21:14 by Leobardo Metz PA-C) Anxiety Arthritis Coronary artery disease GERD without esophagitis H/O: HTN (hypertension) Hyperlipidemia Hypothyroidism Hypothyroidism (acquired) Non-ST elevation (NSTEMI) myocardial infarction <Leobardo Metz PA-C - Last Filed: 12/26/20 21:14> Surgical History Surgical History: Surgical History History of appendectomy History of cardiac cath <Leobardo Metz PA-C - Last Filed: 12/26/20 21:14> Family History Family History: Family History Father Cerebrovascular accident Mother Cerebrovascular accident Family history of coronary artery disease Sibling Patient's sister is in good health Patient's brother is in good health Other Family history of cardiovascular disease Hypertension <Leobardo Metz PA-C - Last Filed: 12/26/20 21:14> Social History Social History: Social History Smoking status: Never smoker Second hand tobacco smoke exposure: No Alcohol intake: former Substance use: never Additional living arrangements comments: Gender identity (if verbalized by the patient): Female Spiritual care concerns: No Agree to blood product
[2020-12-26 19:50] LABS: Troponin I < 0.012 ng/mL (0.000-0.034)
[2020-12-26 20:53] LABS: Add Urine Microscopic? NO; Appearance Urine Clear (Clear); Bilirubin Urine Negative (Negative); Blood Urine Negative (Negative); Color Urine Straw (Yellow); Glucose Urine UA Negative (Negative); Ketones Urine Negative (Negative); Leukocyte Esterase Ur Negative LEU/UL (Negative); Nitrate Urine Negative (Negative); Protein Urine Negative (Negative); Urobilinogen Urine Negative mg/dL (<2.0)
[2020-12-26 20:56] LABS: Specific Grav Ur 1.033 (1.001-1.035)
[2020-12-26] MEDS: hydrALAZINE HCL 20 MG/ML VIAL 10 MG IV PUSH (21:03)
--- NOTE | 2020-12-26 22:46 | ADMGEN ---
This patient, Nadja Saab, was admitted to Medical Room 245-. Patient/family oriented to hospital policies and general routines including ID bracelet, bed and alarms, visiting hours, pain management, procedures, bathroom and other care routines, personal items, smoking policy, room service/diet, and visiting hours. Information on how to activate the Rapid Response Team has been discussed. Patient/Family are encouraged to report perceived risks to care and to ask questions if they do not understand what they are told or what they should do.
[2020-12-27] VITALS (11 sets, daily range): BP systolic 132–172; BP diastolic 52–74; PULSE 58–97; RESP 14–16; TEMP 36.1–36.6; O2SAT 98–100
--- NOTE | 2020-12-27 02:21 | PC.NURSE ---
Called to room by pt, c/o coldness in her right foot. Pt states her left foot will occasionally get cold but never her right foot. Pedal pulses +3 bilaterally, pt has normal sensation to touch, and no deficit w/ strength or movement. Dr Spencer notified, no new orders received.
[2020-12-27 06:04] LABS: Alanine Aminotransferase 21 U/L (4-35); Albumin Level 3.9 g/dL (3.5-5.1); Alkaline Phosphatase 58 U/L (38-126); Anion Gap 3 mmol/L (8-16); Aspartate Amino Transferase 36 U/L (14-36); Bilirubin,Total 0.6 mg/dL (0.2-1.3); Blood Urea Nitrogen 14 mg/dL (7-17); Calcium 9.3 mg/dL (8.4-10.2); Carbon Dioxide 31 mmol/L (22-30); Chloride 102 mmol/L (98-107); Estimated CRCL calculation 50 ml/min; Estimated Glomerular Filt Rate > 60; Glucose 87 mg/dL (65-105); Potassium 3.7 mmol/L (3.4-5.0); Sodium 136 mmol/L (137-145)
[2020-12-27 06:06] LABS: Basophils Percent Auto 0.3 % (0.2-1.2); Eosinophils Absolute Auto 0.1 K/mm3 (0-0.3); Eosinophils Percent Auto 1.6 % (0-4.4); Hematocrit 36.5 % (37.0-47.0); Hemoglobin 12.2 g/dL (12.0-15.0); Immature Granulocyte Absolute 0.01 K/mm3 (0.00-0.031); Immature Granulocyte Percent A 0.2 % (0-0.5); Lymphocytes Absolute Auto 1.93 K/mm3 (0.9-3.2); Lymphocytes Percent Auto 30.2 % (18.3-44.2); Mean Corpuscular HGB Conc 33.4 g/dl (32-36); Mean Corpuscular Hemoglobin 30.2 pg (26-34); Mean Corpuscular Volume 90.3 fl (80-100); Mean Platelet Volume 9.6 fl (7.4-10.4); Monocytes Absolute Auto 0.6 K/mm3 (0.1-0.6); Monocytes Percent Auto 9.7 % (2.6-8.5); Neutrophils Absolute Auto 3.7 K/mm3 (1.3-6.7); Platelet Count Result 249 k/mm3 (150-375); Red Blood Count 4.04 M/mm3 (4.2-5.4); Red Cell Distribution Width 12.9 % (11.5-14.5); White Blood Count 6.4 K/mm3 (4.5-10.0)
[2020-12-27] MEDS: FAMOTIDINE 20 MG/2 ML VIAL IV PUSH ×2 (09:44→21:33)
[2020-12-27] MEDS: ATORVASTATIN 20 MG TABLET PO (10:12)
[2020-12-27] MEDS: ASPIRIN 81 MG ENTERIC TABLET PO (10:12)
--- NOTE | 2020-12-27 12:58 | PM.IMHP ---
H&P: HPI History of Present Illness Date/Time: 12/27/20 12:58 patient is 75-year-old female with history of hypertension hyperlipidemia and hypothyroid presented emergency department stating that around 5:00 p.m. she developed confusion slurred speech and weakness also complained of headache, EMS was called upon arrival of EMS patient symptom had resolved and currently patient only complains of left-sided headache, her speech is normal denies any weakness, CT scan of the head is negative for any acute injury MRI is pending, patient had a similar symptoms last year in September, patient also has very strong family history of CVA as her father of massive CVA at age of 59 with right-sided paralysis, her mother also suffered significant CVA at age of 85, patient with a recurrent TIA will consult neurologist further recommendation if patient would need Plavix compared to be aspirin currently taking, will consult crisis therapist to rule out silent atrial fibrillation and may need a Holter monitor as outpatient. Chief Complaint: Symptoms of TIA Review of Systems Review of Systems: All systems reviewed & are unremarkable except as noted in HPI and below PMFSH Past Medical History Medical History (Updated 12/26/20 @ 21:14 by Leobardo Metz PA-C) Anxiety Arthritis Coronary artery disease GERD without esophagitis H/O: HTN (hypertension) Hyperlipidemia Hypothyroidism Hypothyroidism (acquired) Non-ST elevation (NSTEMI) myocardial infarction Surgical History Surgical History History of appendectomy History of cardiac cath Family History Family History Father Cerebrovascular accident Mother Cerebrovascular accident Family history of coronary artery disease Sibling Patient's sister is in good health Patient's brother is in good health Other Family history of cardiovascular disease Hypertension Social History Social History Smoking status: Never smoker Second hand tobacco smoke exposure: No Alcohol intake: never Substance use: never Additional living arrangements comments: Gender identity (if verbalized by the patient): Female Sexual Orientation (if Verbalized by the Patient): Straight or Heterosexual Spiritual care concerns: No Agree to blood products: No Meds Home Medications and Allergies Home Medications Medication Instructions Recorded Confirmed Type aspirin 81 mg tablet,delayed 81 mg PO DAILY 07/29/19 12/26/20 History release metoprolol succinate 25 mg 25 mg PO DAILY #90 tablet 07/29/19 12/26/20 Rx tablet,extended release 24 hr Dulcolax (bisacodyl) 1 tablet PO BID PRN 10/05/19 12/26/20 History lisinopril-hydrochlorothiazide 1 tablet PO QAM 10/05/19 12/26/20 History valacyclovir 2,000 mg PO BID PRN 10/05/19 12/26/20 History calcium carbonate-vitamin D3 1 tablet PO BID 09/22/20 12/26/20 History fluticasone propionate 2 spray NASAL DAILY PRN 09/22/20 12/26/20 History levothyroxine 75 mcg PO DAILY 09/22/20 12/26/20 History nifedipine 30 mg PO QAM 09/22/20 12/26/20 History trazodone 100 mg tablet 100 mg PO QHS #90 tablet 12/06/20 12/26/20 Rx atorvastatin 20 mg PO DAILY 12/26/20 12/26/20 History Allergies Allergy/AdvReac Type Severity Reaction Status Date / Time meperidine AdvReac Severe Vomiting Verified 12/26/20 23:47 Vital Signs Vital Signs - 24 hr 12/26/20 18:46 12/26/20 18:49 12/26/20 19:00 Temperature 98.0 F Pulse Rate 71 72 69 Respiratory Rate 18 14 18 Blood Pressure 141/80 H Pulse Oximetry 99 97 12/26/20 19:02 12/26/20 19:15 12/26/20 19:30 Temperature Pulse Rate 65 69 71 Respiratory Rate 14 18 14 Blood Pressure 138/72 Pulse Oximetry 98 12/26/20 19:32 12/26/20 19:36 12/26/20 20:01 Temperature Pulse Rate 71 67 67 Respiratory Rate 15 18 16
--- NOTE | 2020-12-27 14:25 | PCSTNOTE ---
Please refer to the Bedside Swallow Evaluation in the EMR. Please note, silent aspiration cannot be ruled out at bedside.
--- NOTE | 2020-12-27 18:21 | PM.CNCAR ---
Assessment and Plan Assessment and plan (1) Brain TIA: Code(s): G45.9 - Transient cerebral ischemic attack, unspecified Status: Acute Assessment and Plan: Patient had a TIA in September 2019 and again on this admission. She has been taking aspirin and atorvastatin long-term. Her workup for carotid disease at [facility] is unremarkable. She does have risk factors for paroxysmal atrial fibrillation. I agree we need to look more intensely for underlying paroxysmal atrial fibrillation. However, she actually had a 2 week monitor done recently in our office through Dr. Melendez; the results of which are still pending. (2) Essential hypertension: Code(s): I10 - Essential (primary) hypertension Status: Acute Assessment and Plan: Blood pressure is usually well controlled although here in the hospital particularly on the 1st 24 hours her blood pressure was running 150-190/60-70 mmHg. May need further outpatient follow-up. (3) CAD (coronary artery disease): Code(s): I25.10 - Atherosclerotic heart disease of [place] coronary artery without angina pectoris Status: Acute Assessment and Plan: History of mild CAD and NSTEMI several years ago, asymptomatic. Additional Plan Okay for discharge from my point of view. Needs further follow-up of her high blood pressure. Two week monitor has been done and results are pending; our office will pursue results on that. History of Present Illness History of Present Illness Consult date/time: 12/27/20 18:21 Requesting physician: Nany Cohen MD Reason For Visit: cva Narrative: Ms. Saab is a 75 y.o. female whom we were asked to see at the request of Dr. Cohen for: Recurrent TIA, strong family hx CVA father and mother, holter monitor? She has been followed in our office by Dr. Melendez for stressed induced cardiomyopathy, mild CAD, history of TIA in September 2020 , hypertension. Patient was admitted to the emergency room on 12/26/2020 with confusion, slurred speech and weakness which has all resolved, but thought to be another TIA. Her brain MRI showed chronic age-related changes and her head and neck CTA did not show any significant carotid stenosis. The patient was initially seen by us in April 2017 when she was admitted with a STEMI, and found to have moderate CAD and a stress-induced cardiomyopathy. She has a history of chronic reproducible chest pain for years. She was admitted in September 2019 with a TIA with a negative workup. She has been maintained on aspirin and atorvastatin.. Echo in September 2019 showed EF 60-65%, diastolic dysfunction, moderately enlarged left atrium, dilated IVC. On her recent office visit with Dr. Melendez 12/12/2020 she complained of fatigue, some shortness of breath, and he ordered a 2 week monitor looking for AFib as a cause of her TIA last year. The results are still pending. Review of Systems Constitutional: Constitutional: Reports fatigue and Reports lethargy ENT: Reports Normal hearing present Cardiovascular: Cardiovascular: Reports chest pain (Chronic heaviness, nonexertional), Denies pedal edema, Denies leg edema, Denies lightheadedness and Denies palpitations Respiratory: Respiratory: Denies chest congestion and Reports dyspnea on exertion (Some mild MENDEZ) Gastrointestinal: Gastrointestinal: Denies abdominal pain Genitourinary: Genitourinary: Denies hematuria Musculoskeletal: Musculoskeletal: Reports no additional musculoskeletal complaints Integumentary/Breasts: Skin/Breast: Denies rash Neurologic: Reports system reviewed and no additional complaints, except as documented and Reports Abnormal speech present (Thought to have had a TIA on this admission) Psychiatric: Psychiatric: Reports no additional psychiatric complaints PMFSH Past Medical History Medical History (Updated 12/27/20 @ 18:53 by Swati Ruth MD) Anxiety Arthritis Coronary artery disease GERD without esophagitis H/O: HTN (
[2020-12-27] MEDS: traZODone HCL 50 MG TABLET 100 MG PO (20:46)
[2020-12-28] VITALS (10 sets, daily range): BP systolic 125–184; BP diastolic 53–70; PULSE 61–85; RESP 16–20; TEMP 36–36.7; O2SAT 96–100
[2020-12-28] MEDS: PHENOL/SOD PHENO SPRAY CHERRY (*BKC) 1 SPRAY MUCOUS MEM ×3 (03:16→11:32)
[2020-12-28] MEDS: LEVOTHYROXINE SODIUM 75 MCG TABLET PO (05:39)
[2020-12-28] MEDS: lisinopriL 20 MG TABLET PO (08:40)
[2020-12-28] MEDS: FAMOTIDINE 20 MG/2 ML VIAL IV PUSH (08:40)
[2020-12-28] MEDS: ATORVASTATIN 20 MG TABLET PO (08:40)
[2020-12-28] MEDS: METOPROLOL SUCCINATE EXT REL 25 MG TABCR PO (08:40)
[2020-12-28] MEDS: NIFEdipine 30 MG TAB.ER.24 PO (08:40)
[2020-12-28] MEDS: ASPIRIN 81 MG ENTERIC TABLET PO (08:40)
[2020-12-28] MEDS: hydroCHLOROthiazide 12.5 MG CAPSULE PO (08:40)
--- NOTE | 2020-12-28 11:11 | WPDNEURCNPN ---
Assessment and Plan Additional Plan considering the total evaluation patient will be followed by the manager office for the results of the Holter monitoring for 2014 all the pros and cons of the exam and evaluation were discussed with the patient in front of her for the time being treatment will be continued as such also the pros and cons of different treatment that is aspirin versus stronger blood thinning medication were discussed in case we find the cardiac abnormalities Consult date: 12/28/20 Time Seen: 10:00 HPI: Nadja Saab is a 75 year old female admitted to the hospital for the complaints of confusion along with slurred speech and weakness and headache by the time EMS arrived at the scene the symptomatology had resolved and she was complaining of only left-sided headache. Initial evaluation in the emergency room CT scan of the head was negative patient had the same symptomatology in September of this year and does have a long strong history of cerebrovascular accident in the family, she does have ongoing history of anxiety which coronary artery disease, hypertension, hyperlipidemia, and hypothyroidism and in the past has undergone cardiac catheterization evaluation up until now documented the normal routine lab including the UA, CBC but history of positive serology for the COVID-19 in July of 2020, MRI of the brain is negative s0 as the CTA, cardiology consultation has been obtained as the patient has been taking aspirin atorvastatin long-term basis but considering the risk factor of paroxysmal atrial fibrillation she will have a follow-up with manager office because she has had the 2 weeks cardiac monitoring though the results are not available Review of Systems Review of Systems: All systems reviewed & are unremarkable except as noted in HPI and below PMFSH Past Medical History Medical History Anxiety Arthritis Coronary artery disease GERD without esophagitis H/O: HTN (hypertension) Hyperlipidemia Hypothyroidism Hypothyroidism (acquired) Non-ST elevation (NSTEMI) myocardial infarction Surgical History Surgical History History of appendectomy History of cardiac cath Family History Family History Father Cerebrovascular accident Mother Cerebrovascular accident Family history of coronary artery disease Sibling Patient's sister is in good health Patient's brother is in good health Other Family history of cardiovascular disease Hypertension Social History Social History Smoking status: Never smoker Second hand tobacco smoke exposure: No Alcohol intake: never Substance use: never Additional living arrangements comments: Gender identity (if verbalized by the patient): Female Sexual Orientation (if Verbalized by the Patient): Straight or Heterosexual Spiritual care concerns: No Agree to blood products: No Meds Home Medications and Allergies Home Medications Medication Instructions Recorded Confirmed Type aspirin 81 mg tablet,delayed 81 mg PO DAILY 07/29/19 12/26/20 History release metoprolol succinate 25 mg 25 mg PO DAILY #90 tablet 07/29/19 12/26/20 Rx tablet,extended release 24 hr Dulcolax (bisacodyl) 1 tablet PO BID PRN 10/05/19 12/26/20 History lisinopril-hydrochlorothiazide 1 tablet PO QAM 10/05/19 12/26/20 History valacyclovir 2,000 mg PO BID PRN 10/05/19 12/26/20 History calcium carbonate-vitamin D3 1 tablet PO BID 09/22/20 12/26/20 History fluticasone propionate 2 spray NASAL DAILY PRN 09/22/20 12/26/20 History levothyroxine 75 mcg PO DAILY 09/22/20 12/26/20 History nifedipine 30 mg PO QAM 09/22/20 12/26/20 History trazodone 100 mg tablet 100 mg PO QHS #90 tablet 12/06/20 12/26/20 Rx atorvastatin 20 mg PO DAILY 12/26/20 12/26/20 Histo
--- NOTE | 2020-12-28 14:46 | PM.DS ---
DS: Admitting Diagnosis Admitting Diagnosis Admitting Diagnosis: TIA hypertensive urgency DS: Discharge Diagnosis Discharge Diagnosis (1) Brain TIA: Code(s): G45.9 - Transient cerebral ischemic attack, unspecified Status: Acute (2) On [facility]: Code(s): Z79.899 - Other [facility] (current[facility] drug therapy Status: Acute (3) Hyperlipidemia: Qualifiers: Hyperlipidemia type: unspecified Qualified Code(s): E78.5 - Hyperlipidemia, unspecified Code(s): E78.5 - Hyperlipidemia, unspecified Status: Acute (4) Essential hypertension: Code(s): I10 - Essential (primary) hypertension Status: Acute (5) Hypothyroidism (acquired): Code(s): E03.9 - Hypothyroidism, unspecified Status: Acute DS: Summary Hospital Course Hospital Course: 12/27/20 12:58 patient is 75-year-old female with history of hypertension hyperlipidemia and hypothyroid presented emergency department stating that around 5:00 p.m. she developed confusion slurred speech and weakness also complained of headache, EMS was called upon arrival of EMS patient symptom had resolved and currently patient only complains of left-sided headache, her speech is normal denies any weakness, CT scan of the head is negative for any acute injury MRI is pending, patient had a similar symptoms last year in September, patient also has very strong family history of CVA as her father of massive CVA at age of 59 with right-sided paralysis, her mother also suffered significant CVA at age of 85, patient with a recurrent TIA will consult neurologist further recommendation if patient would need Plavix compared to be aspirin currently taking, 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 12/28/2020 Patient has been seen by both Neurology and Cardiology. It appears that she has already had a Holter monitor fitted for 2 weeks and is to follow-up for those results in the outpatient setting. Since this is her 2nd TIA I have increased her aspirin from 81 mg p.o. q.day to 162 mg p.o. q.day and she will continue on high-dose statin. Patient is discharged home in stable condition and will need to follow-up with PCP, before and after school daycare worker, neurologist. Time Spent with Patient Time attestation: Total time spent providing and/or coordinating discharge services: Exam Narrative: Exam Narrative: GEN: NAD, AAOx3 cooperative HEENT: NCAT, MMM, EOMI Neck: no JVD Lungs: symmetric chest rise, aerating well Ext: moves all, no cyanosis, no clubbing, no edema Neuro: CN intact, no focal neurological deficits Psych: mood and affect congruent Discharge Plan Discharge Attending physician on discharge: Irene Arce Consulting providers: Leobardo Metz ; Amandeep Willis ; Swati Ruth Discharging Clinician: Irene Arce Anticipated Discharge Date/Time: 12/28/20 14:34 Patient Disposition: Home, Self-Care Activity: as tolerated Diet: heart healthy Discharge Instructions: Call Dr. Melendez's office at [phone] if you have not heard the results of the monitor by next week. Patient Instructions: Antibiotic Form, Transient Ischemic Attack (DC), Heart Failure (GEN) Stand Alone Forms: General Discharge Information Follow-up/Referrals: William Webster DO [Primary Care Provider] - Swati Ruth MD [Physician] - Discharge Medications: New levothyroxine 25 mcg Tablet 25 mcg PO Sa@0630 Qty: 30 RF: 0 levothyroxine [Synthroid] 75 mcg Tablet 75 mcg PO MoTuWeThFr@0630 Qty: 30 RF: 0 Continued metoprolol succinate 25 mg tablet extended release 24 hr 25 mg PO DAILY Qty: 90 RF: 0 trazodone 100 mg tablet 100 mg PO QHS Qty: 90 RF: 2 valacyclovir 1 gram Tablet 2,000 mg PO BID PRN (Reason: Cold Sores) RF: 0 lisinopril-hydrochlorothiazide 20-12.5 mg tablet 1 tablet PO QAM RF: 0 Dulcolax (bisacodyl) 5 mg tablet 1 tab
== END 2020-12-28 15:38 | disposition home or self-care (01) | DRG 69 ==
LOC: ANHED 21:14 → ANH2MED 22:06
PROVIDERS: Emergency Medicine Emergency Medical Services; Admitting Provider Internal Medicine; Emergency Provider General Practice; PCP Internal Medicine; Visit Provider Hospitalist
DX: G45.9 Transient cerebral ischemic attack, unspecified (principal); I10 Essential (primary) hypertension; E78.5 Hyperlipidemia, unspecified; E03.9 Hypothyroidism, unspecified; I25.10 Atherosclerotic heart disease of native coronary artery without angina pectoris; F41.9 Anxiety disorder, unspecified; K21.9 Gastro-esophageal reflux disease without esophagitis; I25.2 Old myocardial infarction; Z79.82 Long term (current) use of aspirin; Z79.899 Other long term (current) drug therapy; Z82.3 Family history of stroke; Z82.49 Family history of ischemic heart disease and other diseases of the circulatory system
CPT/HCPCS: 36415; 70496; 70498; 70553; 71045; 80048; 80053; 81003; 84484; 85025; 85610; 85730; 92610; 93005; 96365; 96375; 96376; 97161; 97165; 99285; A9270; A9577; G0378; J0131; J0360; Q9967

== ENCOUNTER 2021-01-19 12:32 | Outpatient (CLI) | payer MEDICARE, BC, SELFPAY ==
--- NOTE | ~2021-01-19 | US_ITS ---
EXAMINATION: US carotid duplex BI DATE: 01/19/2021 13:15 INDICATION: Transient cerebral ischemic attack. TECHNIQUE: Grayscale, color Doppler, and pulsed Doppler images of the cervical carotid arteries were obtained. The degree of vessel stenosis is placed in one of the following categories: normal, <50%, 5 0-69%, >=70% but less than near-occlusion, near-occlusion, or total occlusion. Note that percent sten osis relative to normal distal artery lumen diameter is indirectly measured from velocity measurement s as described by Newton, et al. Radiology 2003; 229:340-346. COMPARISON: CTA 12/26/2020 FINDINGS: RIGHT: The right common carotid artery (CCA) peak systolic velocity (PSV) is 112 cm/s. The right internal ca rotid artery (ICA) PSV is 74 cm/s. The right ICA end-diastolic velocity (EDV) is 20 cm/s. The right I CA/CCA PSV ratio is 0.8. Grayscale and color Doppler images yield an estimate of <50% diameter reduct ion from plaque in the ICA. There is antegrade flow in the right vertebral artery. LEFT: The left CCA PSV is 103 cm/s. The left ICA PSV is 78 cm/s. The left ICA EDV is 22 cm/s. The left ICA/ CCA PSV ratio is 0.8. Grayscale and color Doppler images yield an estimate of <50% diameter reduction from plaque in the ICA. There is antegrade flow in the left vertebral artery. IMPRESSION: 1. <50% stenosis in the right internal carotid artery. 2. <50% stenosis in the left internal carotid artery. Reviewed, dictated and finalized at location B.
== END 2021-01-19 12:33 | disposition home or self-care (01) ==
PROVIDERS: PCP Internal Medicine; Visit Provider Nurse Practitioner
DX: I65.23 Occlusion and stenosis of bilateral carotid arteries (principal)
CPT/HCPCS: 93880

== ENCOUNTER 2021-03-14 13:23 | Emergency (ER) | payer MEDICARE, BC, SELFPAY ==
--- NOTE | ~2021-03-14 | CT_ITS ---
EXAMINATION: CT brain wo con INDICATION: Numbness and headache COMPARISON: 12/26/2020 TECHNIQUE: Standard unenhanced head CT. The dose-length product (DLP) was 605.33 mGy-cm. The mA was a djusted according to patient size. Iterative reconstruction technique was employed. FINDINGS: There is no acute intraparenchymal hemorrhage. No evidence of mass lesion. No evidence of a cute infarction. There is mild periventricular and subcortical hypodensity probably related to small vessel ischemic disease. There is mild prominence of the sulci and ventricles related to cerebral atr ophy. Intracranial calcified cerebral atherosclerosis is noted. There are no extra-axial collections. There is no mass effect or midline shift. Changes in the globes are likely from ocular lens surgery. There is mild mucosal thickening of the paranasal sinuses. IMPRESSION: 1. No acute intracranial abnormality. 2. Age related findings. Reviewed, dictated and finalized at location B.
--- NOTE | ~2021-03-14 | XR_ITS ---
XR chest 2V DATE: 03/14/2021 14:34 INDICATION: Hypertension. Right facial numbness. TECHNIQUE: PA and lateral COMPARISON: 12/26/2020 portable AP chest FINDINGS: Left subcutaneous cardiac nurse device. Cardiomegaly. No hilar or mediastinal enlargement. No pulmonary infiltrate or consolidation, pleural effusion or pulmonary vascular congestion or pneumothorax. Right rotator cuff calcifications suggesting calcific tendinitis. Osteopenia. Mild dextroscoliosis of the thoracic spine. IMPRESSION: Cardiomegaly No active pulmonary disease Reviewed, dictated and finalized at location A.
[2021-03-14 14:06] VITALS: BP 142/65; PULSE 64; RESP 14; TEMP 36.4; O2SAT 100
--- NOTE | 2021-03-14 14:10 | ECG_ITS ---
Measurements Intervals [place] Rate: 61 P: 32 ME: 204 QRS: 11 QRSD: 84 T: 41 QT: 401 QTc: 405 Interpretive Statements SINUS RHYTHM BORDERLINE AV CONDUCTION DELAY BORDERLINE R WAVE PROGRESSION, ANTERIOR LEADS BORDERLINE ECG Electronically Signed On 03-14-2021 14:52:01 CDT by Ronen Huggins D.O.
[2021-03-14 15:01] LABS: Glucose Point of Care 98 mg/dl (65-105)
[2021-03-14 15:11] LABS: Basophils Percent Auto 0.3 % (0.2-1.2); Eosinophils Percent Auto 0.6 % (0-4.4); Hematocrit 39.1 % (37.0-47.0); Hemoglobin 13.2 g/dL (12.0-15.0); Immature Granulocyte Absolute 0.02 K/mm3 (0.00-0.031); Immature Granulocyte Percent A 0.3 % (0-0.5); Lymphocytes Absolute Auto 1.49 K/mm3 (0.9-3.2); Lymphocytes Percent Auto 23.6 % (18.3-44.2); Mean Corpuscular HGB Conc 33.8 g/dl (32-36); Mean Corpuscular Hemoglobin 30.1 pg (26-34); Mean Corpuscular Volume 89.3 fl (80-100); Mean Platelet Volume 9.2 fl (7.4-10.4); Monocytes Absolute Auto 0.5 K/mm3 (0.1-0.6); Monocytes Percent Auto 7.1 % (2.6-8.5); Neutrophils Absolute Auto 4.3 K/mm3 (1.3-6.7); Neutrophils Percent Auto 68.1 % (45.5-73.1); Platelet Count Result 252 k/mm3 (150-375); Red Blood Count 4.38 M/mm3 (4.2-5.4); Red Cell Distribution Width 12.9 % (11.5-14.5); White Blood Count 6.3 K/mm3 (4.5-10.0)
[2021-03-14 15:21] LABS: INR 0.8; Partial Thromboplastin Time 25.6 SECONDS (22.3-36.8); Prothrombin Time 11.5 Seconds (11.1-14.7)
[2021-03-14 15:23] LABS: Anion Gap 9 mmol/L (8-16); Blood Urea Nitrogen 17 mg/dL (7-17); Carbon Dioxide 30 mmol/L (22-30); Chloride 93 mmol/L (98-107); Estimated CRCL calculation 48 ml/min; Estimated Glomerular Filt Rate > 60; Glucose 101 mg/dL (65-110); Potassium 3.8 mmol/L (3.4-5.0); Sodium 132 mmol/L (137-145)
[2021-03-14 15:35] LABS: Troponin I < 0.012 ng/mL (0.000-0.034)
[2021-03-14 15:51] VITALS: BP 157/65; PULSE 66; RESP 14; O2SAT 99
--- NOTE | 2021-03-14 16:50 | ED.NEUROSD ---
HPI - Neuro Symptoms/Deficit General Chief Complaint: Neuro Symptoms/Deficit Stated Complaint: right face numbness subsiding/headache Time Seen by Provider: 03/14/21 16:10 Source: patient Mode of arrival: ambulatory Limitations: no limitations History of Present Illness HPI Narrative: 76-year-old with a history of hypertension, hyperlipidemia, TIA here with complaints of numbness around her right orbit started this morning. 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 To words her cheek which lasted for few hours. By the time she came to the ER her symptoms completely subsided. She denied any any weakness on any particular side of her body. She states that she had minor headache at that time. Denies any visual loss. Onset (ago): hour(s) (5) Location: right face History of same: Yes Severity: mild Quality: numb Relieving factors: none Exacerbating factors: none Context: sudden onset On Anticoagulants: Yes Associated symptoms: denies other symptoms Related Data Home Medications Medication Instructions Recorded Confirmed Dulcolax (bisacodyl) 1 tablet PO BID PRN 10/05/19 01/12/21 lisinopril-hydrochlorothiazide 1 tablet PO QAM 10/05/19 01/12/21 valacyclovir 2,000 mg PO BID PRN 10/05/19 01/12/21 calcium carbonate-vitamin D3 1 tablet PO BID 09/22/20 01/12/21 fluticasone propionate 2 spray NASAL DAILY PRN 09/22/20 01/12/21 nifedipine 30 mg PO QAM 09/22/20 01/12/21 Allergies Allergy/AdvReac Type Severity Reaction Status Date / Time meperidine AdvReac Severe Vomiting Verified 01/12/21 12:27 Review of Systems Review of Systems: All systems reviewed & are unremarkable except as noted in HPI and below Constitutional: Constitutional: Reports no additional constitutional complaints Eyes: Eyes: Reports no additional eye complaints ENT: Reports system reviewed and no additional complaints, except as documented Cardiovascular: Cardiovascular: Reports no additional cardiovascular complaints Respiratory: Respiratory: Reports no additional respiratory complaints Musculoskeletal: Musculoskeletal: Reports no additional musculoskeletal complaints Integumentary/Breasts: Skin/Breast: Reports system reviewed and no additional complaints, except as docu Neurologic: Reports as per HPI Psychiatric: Psychiatric: Reports no additional psychiatric complaints PMFSH Past Medical History Medical History Anxiety Arthritis Coronary artery disease GERD without esophagitis H/O: HTN (hypertension) Hyperlipidemia Hypothyroidism Hypothyroidism (acquired) Non-ST elevation (NSTEMI) myocardial infarction Surgical History Surgical History History of appendectomy History of cardiac cath Family History Family History Father Cerebrovascular accident Mother Cerebrovascular accident Family history of coronary artery disease Sibling Patient's sister is in good health Patient's brother is in good health Other Family history of cardiovascular disease Hypertension Social History Social History Smoking status: Never smoker Second hand tobacco smoke exposure: No Alcohol intake: current Alcohol use details: rarely Substance use: never Additional living arrangements comments: Gender identity (if verbalized by the patient): Female Spiritual care concerns: No Agree to blood products: No Exam Narrative: Exam Narrative: GENERAL: Well-appearing, well-nourished, and in no acute distress. HEAD: Normocephalic, atraumatic. EYES: PERRLA and EOMI. ENT: No facial droop. NECK: Supple. CHEST: Clear to auscultation
[2021-03-14 17:11] VITALS: BP 140/69; PULSE 80; RESP 14; O2SAT 100
== END 2021-03-14 17:12 | disposition home or self-care (01) ==
PROVIDERS: Emergency Medicine; Emergency Provider Family Medicine; PCP Internal Medicine
DX: R20.2 Paresthesia of skin (principal); I10 Essential (primary) hypertension; E78.5 Hyperlipidemia, unspecified; I25.10 Atherosclerotic heart disease of native coronary artery without angina pectoris; M19.90 Unspecified osteoarthritis, unspecified site; K21.9 Gastro-esophageal reflux disease without esophagitis; E03.9 Hypothyroidism, unspecified; I25.2 Old myocardial infarction; F41.9 Anxiety disorder, unspecified; Z86.73 Personal history of transient ischemic attack (TIA), and cerebral infarction without residual deficits; Z79.82 Long term (current) use of aspirin; R94.31 Abnormal electrocardiogram [ECG] [EKG]; I51.7 Cardiomegaly
CPT/HCPCS: 36415; 70450; 71046; 80048; 82948; 84484; 85025; 85610; 85730; 93005; 99284

== ENCOUNTER 2021-06-13 10:26 | Outpatient (CLI) | payer MEDICARE, BC, SELFPAY ==
[2021-06-13 11:27] LABS: LDL Cholesterol Direct 63 mg/dL
[2021-06-13 11:30] LABS: Alanine Aminotransferase 19 U/L (4-35); Albumin Level 4.7 g/dL (3.5-5.1); Alkaline Phosphatase 67 U/L (38-126); Anion Gap 8 mmol/L (8-16); Aspartate Amino Transferase 37 U/L (14-36); Bilirubin,Total 0.7 mg/dL (0.2-1.3); Blood Urea Nitrogen 17 mg/dL (7-17); Calcium 9.6 mg/dL (8.4-10.2); Carbon Dioxide 29 mmol/L (22-30); Chloride 94 mmol/L (98-107); Cholesterol 155 mg/dL (0-200); Estimated Glomerular Filt Rate > 60; Glucose 124 mg/dL (65-110); HDL Direct 69 mg/dL; Sodium 131 mmol/L (137-145); Triglycerides 99 mg/dL (<150)
[2021-06-13 11:32] LABS: Vitamin D 25 Hydroxy 49.9 ng/mL
[2021-06-13 11:56] LABS: Thyroid Stimulating Hormone 0.284 uIU/mL (0.465-4.680)
== END 2021-06-13 10:27 | disposition home or self-care (01) ==
LOC: ANHLAB 10:28
PROVIDERS: PCP Internal Medicine; Visit Provider Internal Medicine
DX: Z13.21 Encounter for screening for nutritional disorder (principal); Z51.81 Encounter for therapeutic drug level monitoring; Z79.899 Other long term (current) drug therapy; I10 Essential (primary) hypertension
CPT/HCPCS: 36415; 80053; 80061; 82306; 84443

== ENCOUNTER 2021-08-16 07:34 | Outpatient (CLI) | payer MEDICARE, BC, SELFPAY | END 2021-08-16 07:35 | disposition home or self-care (01) | PROVIDERS: PCP Internal Medicine; Visit Provider Internal Medicine | DX: E03.9 Hypothyroidism, unspecified (principal) | CPT/HCPCS: 36415; 84443 ==

== ENCOUNTER 2021-12-18 07:12 | Outpatient (CLI) | payer MEDICARE, BC, SELFPAY ==
[2021-12-18 07:47] LABS: Hematocrit 38.3 % (37.0-47.0); Hemoglobin 12.4 g/dL (12.0-15.0)
[2021-12-18 08:05] LABS: Alanine Aminotransferase 20 U/L (4-35); Albumin Level 4.3 g/dL (3.5-5.1); Alkaline Phosphatase 50 U/L (38-126); Anion Gap 5 mmol/L (8-16); Aspartate Amino Transferase 38 U/L (14-36); Bilirubin,Total 0.4 mg/dL (0.2-1.3); Blood Urea Nitrogen 22 mg/dL (7-17); Calcium 9.4 mg/dL (8.4-10.2); Carbon Dioxide 28 mmol/L (22-30); Chloride 101 mmol/L (98-107); Cholesterol 206 mg/dL (0-200); Estimated Glomerular Filt Rate > 60; Glucose 100 mg/dL (65-110); HDL Direct 82 mg/dL; Potassium 3.9 mmol/L (3.4-5.0); Sodium 134 mmol/L (137-145); Triglycerides 92 mg/dL (<150)
[2021-12-18 08:12] LABS: LDL Cholesterol Direct 73 mg/dL
[2021-12-18 08:52] LABS: Vitamin D 25 Hydroxy 41.3 ng/mL
== END 2021-12-18 07:13 | disposition home or self-care (01) ==
LOC: ANHLAB 07:17
PROVIDERS: PCP Internal Medicine; Visit Provider Internal Medicine
DX: E55.9 Vitamin D deficiency, unspecified (principal); I10 Essential (primary) hypertension; Z79.899 Other long term (current) drug therapy; R53.83 Other fatigue; E78.5 Hyperlipidemia, unspecified; E03.9 Hypothyroidism, unspecified
CPT/HCPCS: 36415; 80053; 80061; 82306; 84443; 85014; 85018

== ENCOUNTER 2021-12-21 01:41 | Day surgery (SDC) | payer MEDICARE, BC, SELFPAY ==
[2021-12-20 15:16] VITALS: BMI 28.2
[2021-12-21 09:25] VITALS: BP 146/67; PULSE 64; RESP 16; TEMP 36.6; O2SAT 98; BMI 28.2
[2021-12-21 09:33] LABS: Basophils Percent Auto 0.3 % (0.2-1.2); Eosinophils Absolute Auto 0.2 K/mm3 (0-0.3); Eosinophils Percent Auto 2.3 % (0-4.4); Hematocrit 38.8 % (37.0-47.0); Hemoglobin 12.9 g/dL (12.0-15.0); Immature Granulocyte Absolute 0.02 K/mm3 (0.00-0.031); Immature Granulocyte Percent A 0.3 % (0-0.5); Lymphocytes Absolute Auto 1.19 K/mm3 (0.9-3.2); Lymphocytes Percent Auto 16.9 % (18.3-44.2); Mean Corpuscular HGB Conc 33.2 g/dl (32-36); Mean Corpuscular Hemoglobin 30.2 pg (26-34); Mean Corpuscular Volume 90.9 fl (80-100); Mean Platelet Volume 9.1 fl (7.4-10.4); Monocytes Absolute Auto 0.7 K/mm3 (0.1-0.6); Monocytes Percent Auto 9.9 % (2.6-8.5); Neutrophils Percent Auto 70.3 % (45.5-73.1); Platelet Count Result 264 k/mm3 (150-375); Red Blood Count 4.27 M/mm3 (4.2-5.4); Red Cell Distribution Width 13.4 % (11.5-14.5); White Blood Count 7.1 K/mm3 (4.5-10.0)
[2021-12-21 09:34] LABS: Anion Gap 8 mmol/L (8-16); Blood Urea Nitrogen 21 mg/dL (7-17); Calcium 9.2 mg/dL (8.4-10.2); Carbon Dioxide 26 mmol/L (22-30); Chloride 100 mmol/L (98-107); Estimated CRCL calculation 48 ml/min; Estimated Glomerular Filt Rate > 60; Glucose 98 mg/dL (65-110); Potassium 4.2 mmol/L (3.4-5.0); Sodium 134 mmol/L (137-145)
[2021-12-21 11:14] VITALS: BP 151/67; PULSE 65; RESP 16; TEMP 36.6; O2SAT 98
--- NOTE | 2021-12-21 11:14 | WPDHPUPDATE1 ---
History and Physical Update Update Date/Time: 12/21/21 11:14 History and Physical has been reviewed, including an updated exam of the patient. There are NO changes in the patient's condition. Risks, benefits, and alternatives have been discussed and questions answered. Patient agrees to proceed with procedure.
--- NOTE | 2021-12-21 11:15 | W.PM.PROC2 ---
Procedure Note - Detailed Date of Procedure 12/21/21 Pre-op Diagnosis device no longer needed. Patient has loop recorder and she wants loop recorder to be removed. Post-op Diagnosis Same Procedure Performed Explantation of loop recorder Surgeon Lion Melendez MD [facility] Director katerina lynch Anesthesia Local Indications Patient wants the device out Findings Device was removed intact Description of Procedure After informed consent patient was draped and prepped in the usual manner. The skin over the loop recorder was infiltrated using 20 cc of 1% lidocaine. 1 cm incision was done over the old scar and then using scissors small amount of cutting was done and then with the device was retrieved. Hemostasis achieved using glue Drains No Packing No Pathology None sent Complications None Condition Stable Disposition Same day
--- NOTE | 2021-12-21 11:26 | SUR.PHASEII ---
1120 patient was discharged post loop recorder removal. Discharge instructions reviewed. Dressing/incision care reviewed. Signs and symptoms of infection and other concerns were reviewed. She was advised to call [facility] office for follow up appointment and for any concerns post procedural or otherwise. Patient's questions were answered to her satisfaction. She had no further questions or concerns and was taken by wheelchair in stable condition out to her who picked her up.
== END 2021-12-21 11:20 | disposition home or self-care (01) ==
PROVIDERS: PCP Internal Medicine; Visit Provider Internal Medicine Cardiovascular Disease
PROC: (CPT 33286; principal; 2021-12-21 10:30)
DX: Z45.09 Encounter for adjustment and management of other cardiac device (principal); I42.8 Other cardiomyopathies; I25.10 Atherosclerotic heart disease of native coronary artery without angina pectoris; I10 Essential (primary) hypertension; E78.5 Hyperlipidemia, unspecified; K21.9 Gastro-esophageal reflux disease without esophagitis; I25.2 Old myocardial infarction; Z86.73 Personal history of transient ischemic attack (TIA), and cerebral infarction without residual deficits
CPT/HCPCS: 33286; 36415; 80048; 85025; J0690; J7040

== ENCOUNTER 2022-03-30 07:52 | Outpatient (CLI) | payer MEDICARE, BC, SELFPAY ==
[2022-04-03 14:31] LABS: Total Protein/Creatinine Ratio 91 mg/g creat (21-161)
[2022-04-03 17:44] LABS: Albumin 4.3 g/dL (3.8-4.8); Alpha 1 Globulin 0.3 g/dL (0.2-0.3); Alpha 2 Globulin 0.8 g/dL (0.5-0.9); Beta 1 Globulin 0.5 g/dL (0.4-0.6); Gamma Globulin 0.6 g/dL (0.8-1.7); Interpretation Consistent with; Protein, Total 6.7 g/dL (6.1-8.1)
== END 2022-03-30 07:53 | disposition home or self-care (01) ==
LOC: ANHLAB 07:57
PROVIDERS: PCP Internal Medicine; Visit Provider Internal Medicine
DX: R93.89 Abnormal findings on diagnostic imaging of other specified body structures (principal)
CPT/HCPCS: 36415; 82570; 84155; 84156; 84165; 84166

== ENCOUNTER 2022-04-05 07:45 | Outpatient (CLI) | payer MEDICARE, BC, SELFPAY ==
[2022-04-10 18:47] LABS: Total Protein/Creatinine Ratio 100 mg/g creat (21-161)
[2022-04-26 13:40] LABS: Creatinine, Random Urine 40 mg/dL
== END 2022-04-05 07:46 | disposition home or self-care (01) ==
LOC: ANHLAB 07:49
PROVIDERS: PCP Internal Medicine; Visit Provider Internal Medicine
DX: R93.89 Abnormal findings on diagnostic imaging of other specified body structures (principal)
CPT/HCPCS: 82570; 84156; 84166

== ENCOUNTER 2022-06-25 06:50 | Outpatient (CLI) | payer MEDICARE, BC, SELFPAY ==
[2022-06-25 08:05] LABS: Alanine Aminotransferase 23 U/L (6-35); Albumin Level 4.4 g/dL (3.5-5.1); Alkaline Phosphatase 57 U/L (38-126); Anion Gap 12 mmol/L (8-16); Aspartate Amino Transferase 35 U/L (14-36); Bilirubin,Total 0.6 mg/dL (0.2-1.3); Blood Urea Nitrogen 16 mg/dL (7-17); Calcium 9.1 mg/dL (8.4-10.2); Carbon Dioxide 29 mmol/L (22-30); Chloride 97 mmol/L (98-107); Cholesterol 174 mg/dL (0-200); Estimated Glomerular Filt Rate > 60; Glucose 98 mg/dL (65-110); HDL Direct 92 mg/dL; Potassium 3.8 mmol/L (3.4-5.0); Sodium 138 mmol/L (137-145); Triglycerides 54 mg/dL (<150)
[2022-06-25 08:16] LABS: LDL Cholesterol Direct 59 mg/dL
[2022-06-25 08:36] LABS: Thyroid Stimulating Hormone 0.897 uIU/mL (0.465-4.680)
== END 2022-06-25 06:51 | disposition home or self-care (01) ==
PROVIDERS: PCP Internal Medicine; Visit Provider Nurse Practitioner
DX: E03.9 Hypothyroidism, unspecified (principal); E78.5 Hyperlipidemia, unspecified
CPT/HCPCS: 36415; 80053; 80061; 84443

== ENCOUNTER 2023-01-02 09:38 | Outpatient (CLI) | payer MEDICARE, BC, SELFPAY ==
[2023-01-02 10:12] LABS: Hematocrit 37.8 % (37.0-47.0); Hemoglobin 12.8 g/dL (12.0-15.0)
[2023-01-02 11:21] LABS: Alanine Aminotransferase 23 U/L (6-35); Albumin Level 4.4 g/dL (3.5-5.1); Alkaline Phosphatase 52 U/L (38-126); Anion Gap 6 mmol/L (8-16); Aspartate Amino Transferase 36 U/L (14-36); Bilirubin,Total 0.8 mg/dL (0.2-1.3); Blood Urea Nitrogen 16 mg/dL (7-17); Calcium 9.2 mg/dL (8.4-10.2); Carbon Dioxide 29 mmol/L (22-30); Chloride 99 mmol/L (98-107); Cholesterol 191 mg/dL (0-200); Estimated Glomerular Filt Rate > 60; Glucose 96 mg/dL (65-110); HDL Direct 99 mg/dL; Sodium 134 mmol/L (137-145); Triglycerides 85 mg/dL (<150)
[2023-01-02 11:32] LABS: LDL Cholesterol Direct 69 mg/dL
[2023-01-02 11:50] LABS: Thyroid Stimulating Hormone 0.842 uIU/mL (0.465-4.680)
== END 2023-01-02 09:39 | disposition home or self-care (01) ==
PROVIDERS: PCP Family Medicine; Visit Provider Family Medicine
DX: I10 Essential (primary) hypertension (principal); Z79.899 Other long term (current) drug therapy; E03.9 Hypothyroidism, unspecified; E78.5 Hyperlipidemia, unspecified; R53.83 Other fatigue
CPT/HCPCS: 36415; 80053; 80061; 84443; 85014; 85018

== ENCOUNTER 2023-03-01 11:46 | Outpatient (CLI) | payer MEDICARE, BC, SELFPAY ==
--- NOTE | ~2023-03-01 | XR_ITS ---
EXAM: XR sinus min 3V DATE: 03/01/2023 12:23 HISTORY: H57.9 - Unspecified disorder of eye and adnexa . COMPARISON: None available. FINDINGS: Aerated spaces are clear. Intact, symmetric orbits. Decreased mineralization. No fracture or dislocation. No lytic or blastic lesion. No suspicious intracranial calcification. TMJs are well s eated. No erosion or periosteal change. Soft tissues within normal limits. IMPRESSION: Normal sinus radiograph findings. Reviewed, dictated and finalized at location K.
== END 2023-03-01 11:47 | disposition home or self-care (01) ==
PROVIDERS: PCP Family Medicine; Visit Provider Family Medicine
DX: H57.9 Unspecified disorder of eye and adnexa (principal); T78.40XA Allergy, unspecified, initial encounter
CPT/HCPCS: 70220

== ENCOUNTER 2023-03-24 07:34 | Observation (INO) | payer MEDICARE, BC, SELFPAY ==
[2023-03-24] VITALS (10 sets, daily range): BP systolic 124–176; BP diastolic 56–96; PULSE 60–85; RESP 16–20; TEMP 35.9–36.7; O2SAT 95–98; BMI 30.4
--- NOTE | ~2023-03-24 | CT_ITS ---
EXAMINATION: CT brain wo con DATE: 03/24/2023 08:35 INDICATION: Right facial numbness TECHNIQUE: Computed tomography (CT) of the head was performed without intravenous contrast. The mA wa s adjusted according to patient size. Iterative reconstruction technique was employed. Exam dose: 60 5.33 mGy-cm total exam DLP. COMPARISON: 03/14/2021 CT brain FINDINGS: Bilateral carotid siphon internal carotid artery calcifications. There is nonspecific mild diminished attenuation cerebral white matter, likely due to chronic small vessel ischemic changes. No intracranial mass lesion or hemorrhage or cerebrovascular accident, midline shift or mass effect i s detected. No subdural or epidural hematoma. No fracture or bone destruction of the cranial vault. Included paranasal sinuses and the mastoid air cells are normally developed and aerated. IMPRESSION: Cerebral atherosclerosis; no acute intracranial finding Reviewed, dictated and finalized at Location A. Reviewed, dictated and finalized at location A.
--- NOTE | ~2023-03-24 | MR_ITS ---
MRI of the brain Clinical History: Right tongue numbness Technique: Axial and sagittal T1-weighted images were acquired. These were followed by axial T2-weigh bree, diffusion weighted, gradient, and FLAIR images. COMPARISON: 12/27/2020 Findings: There is no acute infarct, intracranial hemorrhage or mass lesion. There is moderate chroni c white matter changes in the periventricular white matter bilaterally. Ventricles and subarachnoid spaces are unremarkable. Orbits are unremarkable. Paranasal sinuses and m astoid air cells are clear. Major intracranial flow voids appear intact. Sagittal midline structures are intact. IMPRESSION: No acute infarct, intracranial hemorrhage, or mass lesion. Mild to moderate chronic microvascular ischemic changes. Reviewed, dictated and finalized at location M.
--- NOTE | ~2023-03-24 | US_ITS ---
Procedure: Duplex Doppler examination of the bilateral carotids. Indication: Neurologic symptoms COMPARISON: 01/19/2021 Technique: Real time, color-flow and pulse wave Doppler examination of the bilateral carotids was performed. Findings: Amezcua scale ultrasonography of the right neck demonstrated no significant plaque. There was demonstrat ion of normal color-flow and Doppler waveforms within the right common, internal and external carotid arteries. The peak systolic velocities in the right common, internal and external carotid arteries w ere demonstrated to be 117 cm/sec, 80 cm/sec and 80 cm/sec respectively. The right ICA/CCA ratio was 0.7.The proximal right internal carotid artery demonstrates 0% stenosis relative to the normal distal artery lumen diameter. Single Amezcua scale images demonstrates a possible high-grade stenosis at the mid left internal carotid artery, however cine loop demonstrates no apparent stenosis in this region. There was demonstration of normal color-flow and wave forms within the left common, internal and external carotid arteries. T he peak systolic velocities in the left common, internal and external carotid arteries were demonstra bree to be 96cm/sec, 214 cm/sec and 75 cm/sec respectively. The left ICA/CCA ratio was 2.2. The proxim al left internal carotid artery demonstrates possible 80% stenosis on single grayscale image relative to the normal distal artery lumen diameter. There was antegrade flow demonstrated in the bilateral vertebral arteries. Impression: Significantly increased velocity in the mid left internal carotid artery with single grayscale image demonstrating a possible 80% stenosis, but no definite stenosis seen in this region on cine loop. Str ongly consider CT angiogram to further assess for true stenosis versus vessel tortuosity. Antegrade flow in the bilateral vertebral arteries. Note: The methodology used is an indirect measurement validated against a direct method (such as the NASCET criteria) that compares diameters at the stenosis to the distal ICA. Reviewed, dictated and finalized at location M. Impression: Significantly increased velocity in the mid left internal carotid artery with s devin grayscale image demonstrating a possible 80% stenosis, but no definite st enosis seen in this region on cine loop. Strongly consider CT angiogram to furt her assess for true stenosis versus vessel tortuosity. Antegrade flow in the bilateral vertebral arteries. Note: The methodology used is an indirect measurement validated against a direct meth od (such as the NASCET criteria) that compares diameters at the stenosis to the distal ICA.
--- NOTE | ~2023-03-24 | CT_ITS ---
EXAMINATION: CTA brain carotid DATE: 03/25/2023 10:11 INDICATION: Stroke. Right tongue numbness. TECHNIQUE: Computed tomographic angiography (CTA) of the head was performed without and with 100 mL O mnipaque-350 intravenous contrast. CTA of the neck was performed with intravenous contrast. Automated exposure control and iterative reconstruction technique were employed. The dose-length product was 1 595.30 mGy-cm. Maximum intensity projection and volume rendered 3D-reconstructions were created by deidre hartmann technologist on a separate workstation. COMPARISON: Head CT 03/24/2023, brain MRI 03/25/2023 FINDINGS: HEAD CTA: There are scattered areas of low attenuation in the cerebral white matter, which is within normal limits for the patient's age. There is no intracranial hemorrhage, acute infarction, or abnorm al intracranial mass lesion. The ventricles are normal in size. There are likely changes of ocular le ns replacement surgeries. There is mild mucosal thickening in the paranasal sinuses. The mastoid air cells are normal. The vertebral arteries are codominant. There is no significant stenosis of basilar artery or the posterior cerebral arteries. There is no significant stenosis of the intracranial inter nal carotid arteries or anterior or middle cerebral arteries. Anterior communicating artery is normal . The posterior communicating arteries are normal. There is no aneurysm. NECK CTA: There is mild scarring at the lung apices. There are no pathologically enlarged lymph nodes . There is no significant stenosis of the vertebral arteries. There is mild plaque in the proximal in ternal carotid arteries. There is 0% stenosis of the proximal right internal carotid artery relative to normal distal artery lumen diameter (NASCET criteria). There is 0% stenosis of the proximal left i nternal carotid artery relative to normal distal artery lumen diameter. There is moderate cervical sp ondylosis. IMPRESSION: 1. Normal aging brain. 2. No aneurysm or significant intracranial arterial stenosis. 3. 0% stenosis of the proximal internal carotid arteries relative to normal distal artery lumen diame ters (NASCET criteria). Reviewed, dictated and finalized at location A. IMPRESSION: 1. Normal aging brain. 2. No aneurysm or significant intracranial arterial stenosis. 3. 0% stenosis of the proximal internal carotid arteries relative to normal dis sidney artery lumen diameters (NASCET criteria).
--- NOTE | 2023-03-24 08:00 | ECG_ITS ---
Measurements Intervals [place] Rate: 60 P: 17 AL: 188 QRS: 23 QRSD: 79 T: 30 QT: 386 QTc: 387 Interpretive Statements SINUS RHYTHM BORDERLINE R WAVE PROGRESSION, ANTERIOR LEADS BASELINE ARTIFACT- I, III, AVR, AVL BORDERLINE ECG COMPARED TO ECG 03/14/2021 14:47:54 NO SIGNIFICANT CHANGES Electronically Signed On 03-24-2023 8:53:52 CDT by Ronen Huggins D.O.
--- NOTE | 2023-03-24 08:02 | ED.GENADULT ---
HPI - General Adult General Chief complaint: Unspecified Stated complaint: tongue numbness Time Seen by Provider: 03/24/23 07:46 History of Present Illness HPI narrative: 78-year-old female with history of TIAs on aspirin and atorvastatin presents here after noticing when she woke up an hour ago that her right tongue seemed more swollen and numb compared to her left. Since then she is starting to feel more sensation. Related Data Home Medications Medication Instructions Recorded Confirmed Dulcolax (bisacodyl) 1 tablet PO BID 10/05/19 07/04/22 lisinopril 20 1 tablet PO QAM 10/05/19 07/04/22 mg-hydrochlorothiazide 12.5 mg tablet calcium carbonate 600 mg-vitamin 1 tablet PO BID 09/22/20 07/04/22 D3 5 mcg (200 unit) tablet nifedipine 30 mg tablet,extended 30 mg PO QAM 09/22/20 07/04/22 release Allergies Allergy/AdvReac Type Severity Reaction Status Date / Time meperidine AdvReac Severe Vomiting Verified 03/24/23 07:56 Review of Systems Review of Systems: CONST: No fever. HEENT: Right tongue numbness C/V: No chest pain RESP: No cough GI: No nausea or vomiting : No dysuria. M/S: No joint pain. SKIN: No rash. NEURO: Numbness right tongue PSYCH: [No depression] [facility] Past Medical History Medical History (Updated 03/24/23 @ 10:50 by Ebonie Ray MD) Anxiety Arthritis Coronary artery disease GERD without esophagitis H/O: HTN (hypertension) Hyperlipidemia Hypothyroidism Hypothyroidism (acquired) Non-ST elevation (NSTEMI) myocardial infarction Surgical History Surgical History History of appendectomy History of cardiac cath Family History Family History Father Cerebrovascular accident Mother Cerebrovascular accident Family history of coronary artery disease Sibling Patient's sister is in good health Patient's brother is in good health Other Family history of cardiovascular disease Hypertension Social History Social History Smoking status: Never smoker Second hand tobacco smoke exposure: Yes (a long time ago) Alcohol intake: current Alcohol use details: rarely Substance use: never Substance use type: does not use Lack of Transportation: No Lack of Food: Never True Current Housing: I Have Housing Concerned About Future Housing: No Difficulty Paying Gas/Electric Bills: No Difficulty Paying for Meds: No Currently Unemployed: No Education: High School Diploma/GED Difficulty w/ Childcare or Family Care: No Living arrangements: with family Additional living arrangements comments: Gender identity (if verbalized by the patient): Female Sexual Orientation (if Verbalized by the Patient): Straight or Heterosexual Spiritual care concerns: No Agree to blood products: No Exam Narrative: EXAMINATION OF ORGAN SYSTEMS/BODY AREAS: Constitutional: Vital signs per nursing GENERAL:[No acute distress, non-toxic appearing.] HEAD: Normal with no signs of head trauma. EYES: EOMI, conjunctiva normal ENT: No facial droop, right tongue does appear more swollen/red compared to the left, and patient endorses subjective diminished sensation to the tongue LUNGS: Nonlabored breathing. HEART: [Regular rate and rhythm] ABD: No distention EXT: Normal range of motion SKIN: [No rashes or lesions.] NEURO: [Alert and oriented x 3. Slightly diminished sensation to the right arm, face; normal motor strength bilateral upper and lower extremities and face. Normal sensation bilateral lower extremities.] PSYCH: Normal affect Course Vital Signs Vital signs: Vital Signs Temperature 98.0 F 03/24/23 07:51 Pulse Rate 85 03/24/23 07:51 Respiratory Rate 20 03/24/23 07:51 Blood Pressure 152/96 H 03/24/23 07:51 Pulse Oximetry 98 03/24/23 07:51 O
[2023-03-24 08:36] LABS: Basophils Percent Auto 0.2 % (0.2-1.2); Eosinophils Absolute Auto 0.1 K/mm3 (0-0.3); Eosinophils Percent Auto 1.4 % (0-4.4); Hematocrit 35.7 % (37.0-47.0); Hemoglobin 12.2 g/dL (12.0-15.0); Immature Granulocyte Absolute 0.01 K/mm3 (0.00-0.031); Immature Granulocyte Percent A 0.2 % (0-0.5); Lymphocytes Absolute Auto 1.31 K/mm3 (0.9-3.2); Lymphocytes Percent Auto 26.7 % (18.3-44.2); Mean Corpuscular HGB Conc 34.2 g/dl (32-36); Mean Corpuscular Hemoglobin 29.9 pg (26-34); Mean Corpuscular Volume 87.5 fl (80-100); Mean Platelet Volume 9.2 fl (7.4-10.4); Monocytes Absolute Auto 0.5 K/mm3 (0.1-0.6); Monocytes Percent Auto 10.6 % (2.6-8.5); Neutrophils Percent Auto 60.9 % (45.5-73.1); Platelet Count Result 251 k/mm3 (150-375); Red Blood Count 4.08 M/mm3 (4.2-5.4); Red Cell Distribution Width 13.2 % (11.5-14.5); White Blood Count 4.9 K/mm3 (4.5-10.0)
[2023-03-24 08:46] LABS: INR 0.9; Prothrombin Time 12.3 Seconds (11.1-14.7)
[2023-03-24 08:48] LABS: Partial Thromboplastin Time 25.2 SECONDS (22.3-36.8)
[2023-03-24 08:52] LABS: Alanine Aminotransferase 22 U/L (6-35); Albumin Level 4.2 g/dL (3.5-5.1); Alkaline Phosphatase 49 U/L (38-126); Anion Gap 4 mmol/L (8-16); Aspartate Amino Transferase 29 U/L (14-36); Bilirubin,Total 0.9 mg/dL (0.2-1.3); Blood Urea Nitrogen 23 mg/dL (7-17); Calcium 9.4 mg/dL (8.4-10.2); Carbon Dioxide 26 mmol/L (22-30); Chloride 94 mmol/L (98-107); Estimated CRCL calculation 45 ml/min; Estimated Glomerular Filt Rate > 60; Glucose 98 mg/dL (65-110); Potassium 4.1 mmol/L (3.4-5.0); Sodium 124 mmol/L (137-145)
[2023-03-24 09:03] LABS: Troponin I < 0.012 ng/mL (0.000-0.034)
[2023-03-24] MEDS: SODIUM CHLORIDE 0.9% IV 1,000 ML 999 ML IV CONT (10:29)
--- NOTE | 2023-03-24 12:30 | PC.NURSE ---
Verbal Order Dr. Ray, 1500mL of free water fluid restriction for pt
--- NOTE | 2023-03-24 13:11 | WPDNEURCNPN ---
Assessment and Plan Assessment and plan (1) Brain TIA: Code(s): G45.9 - Transient cerebral ischemic attack, unspecified Status: Acute Plan TIA further evaluation as planned including the CTA and MRI of the brain. Consult date: 03/24/23 HPI: Nadja Saab is a 78 year old female admitted to the hospital with the history that when she woke up an hour before her right side of the tongue was swollen at least it felt like and it was numb but by the time she was seen by the ER physician she was starting to feel normal. Medications included lisinopril 20 mg daily with hydrochlorothiazide 12.5 mg daily nifedipine 30 mg daily and her past history was consistent with hypertension hyperlipidemia, not coronary artery disease, with history of non STEMI, and anxiety, patient currently alcohol intake fairly and never smoker , initial exam in the emergency room not significant except diminished sensation to the right upper extremity right side of the face but normal motor strength upper and lower extremities, vital signs normal with blood pressure 153/79 routine lab normal, CT of the head negative Review of Systems Review of Systems: All systems reviewed & are unremarkable except as noted in HPI and below PMFSH Past Medical History Medical History (Updated 03/24/23 @ 10:50 by Ebonie Ray MD) Anxiety Arthritis Coronary artery disease GERD without esophagitis H/O: HTN (hypertension) Hyperlipidemia Hypothyroidism Hypothyroidism (acquired) Non-ST elevation (NSTEMI) myocardial infarction Surgical History Surgical History History of appendectomy History of cardiac cath Family History Family History Father Cerebrovascular accident Mother Cerebrovascular accident Family history of coronary artery disease Sibling Patient's sister is in good health Patient's brother is in good health Other Family history of cardiovascular disease Hypertension Social History Social History Smoking status: Never smoker Second hand tobacco smoke exposure: Yes (a long time ago) Alcohol intake: current Alcohol use details: rarely Substance use: never Substance use type: does not use Lack of Transportation: No Lack of Food: Never True Current Housing: I Have Housing Concerned About Future Housing: No Difficulty Paying Gas/Electric Bills: No Difficulty Paying for Meds: No Currently Unemployed: No Education: High School Diploma/GED Difficulty w/ Childcare or Family Care: No Living arrangements: with family Additional living arrangements comments: Gender identity (if verbalized by the patient): Female Sexual Orientation (if Verbalized by the Patient): Straight or Heterosexual Spiritual care concerns: No Agree to blood products: No Meds Home Medications and Allergies Home Medications Medication Instructions Recorded Confirmed Type metoprolol succinate 25 mg 25 mg PO DAILY #90 tabs 07/29/19 07/04/22 Rx tablet,extended release 24 hr Dulcolax (bisacodyl) 1 tablet PO BID 10/05/19 07/04/22 History lisinopril 20 1 tablet PO QAM 10/05/19 07/04/22 History mg-hydrochlorothiazide 12.5 mg tablet calcium carbonate 600 mg-vitamin 1 tablet PO BID 09/22/20 07/04/22 History D3 5 mcg (200 unit) tablet nifedipine 30 mg tablet,extended 30 mg PO QAM 09/22/20 07/04/22 History release aspirin 81 mg tablet,delayed 162 mg PO DAILY #0 tabs 12/28/20 07/04/22 Rx release (Adult Aspirin Regimen) valacyclovir 1 gram tablet 2,000 mg PO BID PRN Cold Sores #10 12/22/21 07/04/22 Rx tabs atorvastatin 40 mg tablet 40 mg PO HS #90 tabs 01/22/23 Rx levothyroxine 75 mcg tablet See Rx Instructions .Route 02/27/23 Rx .COMPLEX #90 tabs fexofenadine 180 mg tablet 180 mg PO DAILY #90 tabs
--- NOTE | 2023-03-24 13:42 | PM.IMHP ---
H&P: HPI History of Present Illness Date/Time: 03/24/23 13:00 Chief Complaint: Right tongue swelling and numbness. Narrative: This is a 78-year-old female with history of TIA, hypertension, hyperlipidemia, diastolic dysfunction, coronary artery disease, and hypothyroidism who presented to the emergency department via private vehicle from home for evaluation of right tongue swelling and numbness. The patient provides the following history. Upon waking this morning at around 06:45 she noticed that right side of her tongue was swollen and felt a bit numb. She tells me that the right side of her tongue felt hard when compared to the left and that it stood up further when compared to the left side of her tongue when she looked in the mirror. Her speech was perhaps a little bit off due to the swelling. ED physician noted some mild swelling on the right side of the tongue as well but that has since resolved and with the resolution of the swelling her paresthesias are also improving. The symptoms were not present when she went to bed last night. There is no evidence of tongue bite or trauma. She has never had similar symptoms. She denies recent dental work. She has been on lisinopril for approximately 6 years and has no history of angioedema. She denies vertigo, visual changes, facial droop, and difficulties with word finding and swallowing. She has no history of CVA or TIA. No known history of cardiac dysrhythmia however yesterday she did experience her heart fluttering which was new for her. Blood pressure was 152/96 on arrival; the rest her vital signs were stable. Labs were significant for a sodium of 124, chloride 94, BUN 23. Brain CT showed no acute intracranial findings. EKG showed sinus rhythm without acute ST segment changes. With further questioning she does report that she has been feeling tired and dehydrated the past week or so which she attributes to the heat wave. Her oral intake has been normal. She has not had any recent change in medications. She was given a L normal saline bolus and is being admitted in this setting for further treatment and evaluation of hypovolemia and tongue swelling/paresthesias. Review of Systems Review of Systems: Twelve systems were reviewed and are negative except for as per HPI. [facility] Past Medical History Medical History (Updated 03/24/23 @ 22:27 by Rosalva Carpenter PA-C) Anxiety Arthritis Coronary artery disease Diastolic dysfunction GERD without esophagitis Hyperlipidemia Hypertension Hypothyroidism Non-ST elevation (NSTEMI) myocardial infarction Transient ischemic attack Surgical History Surgical History (Updated 03/24/23 @ 13:51 by Rosalva Carpenter PA-C) History of appendectomy History of arthroplasty of left shoulder History of bunionectomy History of cardiac cath History of cataract extraction with lens replacement Family History Family History Father Cerebrovascular accident Mother Cerebrovascular accident Family history of coronary artery disease Sibling Patient's sister is in good health Patient's brother is in good health Other Family history of cardiovascular disease Hypertension Social History Social History (Updated 03/24/23 @ 13:52 by Rosalva Carpenter PA-C) Social History: Surrogate medical decision maker: Geronimo De La Cruztodd, spouse. Code status: Full code. Smoking status: Never smoker Second hand tobacco smoke exposure: Yes (a long time ago) Alcohol intake: current Alcohol use details: rarely Substance use: never Substance use type: does not use Lack of Transportation: No Lack of Food: Never True Current Housing: I Have Housing Concerned About Future Housing: No Difficulty Paying Gas/Electric Bills: No Difficulty Paying for Meds: No Currently Unemployed: No Education: High School Diploma/GED Difficulty w/ Childcare or Family Care: No Arjun
--- NOTE | 2023-03-24 13:51 | ADMGEN ---
This patient, Nadja Saab, was admitted to [facility] Room 305-01. Patient/family oriented to hospital policies and general routines including ID bracelet, bed and alarms, visiting hours, pain management, procedures, bathroom and other care routines, personal items, smoking policy, room service/diet, and visiting hours. Information on how to activate the Rapid Response Team has been discussed. Patient/Family are encouraged to report perceived risks to care and to ask questions if they do not understand what they are told or what they should do. REPORT FROM [facility] IN ER.
[2023-03-24 14:19] LABS: Anion Gap 6 mmol/L (8-16); Blood Urea Nitrogen 18 mg/dL (7-17); Calcium 8.8 mg/dL (8.4-10.2); Carbon Dioxide 25 mmol/L (22-30); Chloride 97 mmol/L (98-107); Estimated CRCL calculation 44 ml/min; Estimated Glomerular Filt Rate > 60; Glucose 189 mg/dL (65-110); Magnesium 1.8 mg/dL (1.6-2.3); Potassium 3.9 mmol/L (3.4-5.0); Sodium 128 mmol/L (137-145)
[2023-03-24 14:51] LABS: Thyroid Stimulating Hormone Reflex 0.257 uIU/mL (0.465-4.68)
[2023-03-24 16:29] LABS: Creatinine Urine 13.9 mg/dL; Urea Random Urine 195 MG/DL
[2023-03-24 16:32] LABS: Sodium Urine Random 36 meq/L
[2023-03-24] MEDS: SODIUM CHLORIDE 0.9% IV 1,000 ML 100 ML IV CONT (22:50)
[2023-03-24] MEDS: traZODone HCL 50 MG TABLET 100 MG PO (22:51)
[2023-03-24] MEDS: ATORVASTATIN 40 MG TABLET PO (22:51)
[2023-03-24 23:44] LABS: Total Triiodothyronine (T3) 0.82 NG/ML (0.97-1.69)
[2023-03-25] VITALS (8 sets, daily range): BP systolic 123–133; BP diastolic 40–50; PULSE 57–77; RESP 16; TEMP 35.8–35.9; O2SAT 96–100
[2023-03-25] MEDS: LEVOTHYROXINE SODIUM 75 MCG TABLET BY MOUTH (05:35)
[2023-03-25] MEDS: FLUTICASONE PROPIONATE 0.05% NA SPR 16 GM BTL (*BKC) 2 SPRAY NASAL (07:59)
[2023-03-25] MEDS: BISACODYL 5 MG TABLET EC PO (08:01)
[2023-03-25] MEDS: ASPIRIN 81 MG ENTERIC TABLET 162 MG PO (08:01)
[2023-03-25] MEDS: METOPROLOL SUCCINATE EXT REL 12.5 MG TABCR PO (08:02)
[2023-03-25] MEDS: NIFEdipine 30 MG TAB.ER.24 PO (08:03)
[2023-03-25] MEDS: ACETAMINOPHEN 325 MG TABLET 650 MG PO (08:09)
[2023-03-25 11:48] LABS: Hematocrit 36.7 % (37.0-47.0); Hemoglobin 12.4 g/dL (12.0-15.0); Mean Corpuscular HGB Conc 33.8 g/dl (32-36); Mean Corpuscular Hemoglobin 30.2 pg (26-34); Mean Corpuscular Volume 89.5 fl (80-100); Mean Platelet Volume 8.5 fl (7.4-10.4); Platelet Count Result 243 k/mm3 (150-375); Red Cell Distribution Width 13.2 % (11.5-14.5); White Blood Count 5.4 K/mm3 (4.5-10.0)
[2023-03-25 11:58] LABS: Anion Gap 2 mmol/L (8-16); Blood Urea Nitrogen 15 mg/dL (7-17); Calcium 8.8 mg/dL (8.4-10.2); Carbon Dioxide 32 mmol/L (22-30); Chloride 96 mmol/L (98-107); Cholesterol 204 mg/dL (0-200); Estimated CRCL calculation 51 ml/min; Estimated Glomerular Filt Rate > 60; Glucose 105 mg/dL (65-110); HDL Direct 87 mg/dL; Sodium 130 mmol/L (137-145); Triglycerides 57 mg/dL (<150)
[2023-03-25 12:09] LABS: LDL Cholesterol Direct 78 mg/dL
--- NOTE | 2023-03-25 13:20 | PCCCNOTE ---
On 03/25/23, the student, [Jeanne Matthew], provided care and completed [facility] documentation on this patient. I have reviewed the student's documentation and agree with the findings.
--- NOTE | 2023-03-25 15:56 | PM.DS ---
DS: Admitting Diagnosis Discharge Date 03/25/23 1045 Admitting Diagnosis Hyponatremia, right sided paraesthesia DS: Discharge Diagnosis Discharge Diagnosis (1) Tongue swelling: Code(s): R22.0 - Localized swelling, mass and lump, head Status: Acute (2) Paresthesia of tongue: Code(s): R44.8 - Other symptoms and signs involving general sensations and perceptions Status: Acute (3) Hyponatremia: Code(s): E87.1 - Hypo-osmolality and hyponatremia Status: Acute (4) Hypertension: Code(s): I10 - Essential (primary) hypertension Status: Acute (5) Hypothyroidism: Code(s): E03.9 - Hypothyroidism, unspecified Status: Acute Plan The patient presented to the emergency department for evaluation of swelling and numbness of the right side of her tongue as per HPI. Labs, imaging, EKG, and all reports were personally reviewed. Last known normal is unclear, she went to bed feeling okay and awoke with these symptoms. Tongue swelling has resolved and sensation continues to improve. This sounds like angioedema and her lisinopril has been placed on hold. In the ED there were concerns for possible TIA versus CVA and with reports of fluttering yesterday a brain MRI has been ordered. Continue neurologic checks q.4 hours. Check B12 as deficiencies can cause paresthesias. Incidentally her sodium was found to be 124 which is quite a bit lower than what she typically runs. She believes that she is dehydrated due to the heat wave the past week or so. She received a L of normal saline in the ED with improvement her sodium and we will continue to cautiously hydrate her overnight. Hydrochlorothiazide has been placed on hold. Check urine and serum osmolalities, TSH, and urine sodium and urea. Vital signs were reviewed and blood pressures have been stable. Her medications will be reviewed and resumed as appropriate. DS: Summary Hospital Course Hospital Course: Patient is a 78-year-old female with past medical history of TIA, hypertension, hyperlipidemia diastolic dysfunction, coronary artery disease, hypothyroidism who presented the ED for evaluation of right tongue swelling and numbness lung. Upon arrival it was noted the patient did have a sodium of 124, brain CT showed no acute intracranial findings, EKG showed sinus rhythm without any ST changes, brain MRI showed no current acute changes. Patient was given normal saline and sodium has resolved and is currently at 130. Lipid panel was also performed showed triglycerides 57 cholesterol 204, and LDL 78, HDL 87. TSH was 0.257 T4 1.20, T3 0.82. currently patient is doing well walking back and forth to the bathroom. Her paresthesias has dissipated is no longer there. She currently denies any chest pain, shortness a breath, nausea, vomiting, diarrhea constipation. According to labs and vital signs patient is stable for discharge at this time. Status at Discharge Functional status at discharge: independent ambulation Overall status at discharge: patient is progressing back to baseline Time Spent with Patient Time attestation: Total time spent providing and/or coordinating discharge services: 42 minutes Time spent: Greater than 30 minutes Specific discharge activities: Diagnostic testing, chart review, developing a treatment plan, education, care coordination documentation, physical exam, result review Exam Narrative: General: well-nourished, well-appearing 78-year-old female, sitting up in bed, comfortable, NARD Neuro: awake, alert and oriented x4, speech clear, no focal neuro deficits noted HEENMT: normocephalic, atraumatic, EOMI, sclerae anicteric, moist oral mucosa Respiratory: Clear to auscultation bilaterally without crackles, rhonchi or wheezes, nonlabored breathing Cardio: regular rate, regular rhythm with S1-S2 Abdomen: nondistended, normoactive bowel sounds, soft, nontender to palpation Extremities: no edema, erythema, or tenderness to palpation, DP pu
[2023-03-28 21:26] LABS: Osmolality, Urine 185 mOsm/kg (50-1200)
== END 2023-03-25 17:10 | disposition home or self-care (01) ==
LOC: ANHED 10:50 → ANH3MEDSUR 11:56
PROVIDERS: Physician Assistant; Admitting Provider Chiropractor; Emergency Provider Emergency Medicine; PCP Family Medicine; Visit Provider Chiropractor
DX: R22.0 Localized swelling, mass and lump, head (principal); R44.8 Other symptoms and signs involving general sensations and perceptions; E87.1 Hypo-osmolality and hyponatremia; I11.9 Hypertensive heart disease without heart failure; E03.9 Hypothyroidism, unspecified; F41.9 Anxiety disorder, unspecified; I67.2 Cerebral atherosclerosis; M19.90 Unspecified osteoarthritis, unspecified site; I25.10 Atherosclerotic heart disease of native coronary artery without angina pectoris; K21.9 Gastro-esophageal reflux disease without esophagitis; R29.701 NIHSS score 1; B00.1 Herpesviral vesicular dermatitis; E78.5 Hyperlipidemia, unspecified; I25.2 Old myocardial infarction; Z77.22 Contact with and (suspected) exposure to environmental tobacco smoke (acute) (chronic); F10.90 Alcohol use, unspecified, uncomplicated; Z86.73 Personal history of transient ischemic attack (TIA), and cerebral infarction without residual deficits; Z79.82 Long term (current) use of aspirin; Z79.899 Other long term (current) drug therapy; Z82.3 Family history of stroke; Z82.49 Family history of ischemic heart disease and other diseases of the circulatory system
CPT/HCPCS: 36415; 70450; 70496; 70498; 70551; 80048; 80053; 80061; 82570; 82607; 83735; 83930; 83935; 84300; 84439; 84443; 84480; 84484; 84540; 85025; 85027; 85610; 85730; 93005; 93880; 96360; 99285; A9270; G0378; J7030; Q9967

== ENCOUNTER 2023-05-03 09:42 | Emergency (ER) | payer MEDICARE, BC, SELFPAY ==
[2023-05-03 10:00] VITALS: BP 137/59; PULSE 73; RESP 16; TEMP 36.8; O2SAT 99
--- NOTE | 2023-05-03 10:21 | ED.FEMALEGU ---
HPI - Female Genitourinary General Chief complaint: Urogenital-Female Stated complaint: Urinary issue Time Seen by Provider: 05/03/23 10:21 Source: patient Mode of arrival: ambulatory Limitations: no limitations History of Present Illness HPI Narrative: 78-year-old female presents with complaint of urinary frequency, dysuria, urgency for 2-3 days. Afebrile. Reports some mild lower abdominal cramping. Denies flank pain. No hematuria. Has nausea vomiting. All systems reviewed and negative except as noted above. Related Data Home Medications Medication Instructions Recorded Confirmed Dulcolax (bisacodyl) 1 tablet PO BID 10/05/19 04/08/23 lisinopril 20 1 tablet PO QAM 10/05/19 04/08/23 mg-hydrochlorothiazide 12.5 mg tablet calcium carbonate 600 mg-vitamin 1 tablet PO BID 09/22/20 04/08/23 D3 5 mcg (200 unit) tablet nifedipine 30 mg tablet,extended 30 mg PO QAM 09/22/20 04/08/23 release metoprolol succinate 25 mg 12.5 mg PO DAILY 03/24/23 03/24/23 tablet,extended release 24 hr metoprolol succinate 25 mg 25 mg PO DAILY 04/08/23 04/08/23 tablet,extended release 24 hr Cortisone Injections 05/03/23 diclofenac sodium 75 mg mg PO 05/03/23 tablet,delayed release valacyclovir 1 gram tablet mg 05/03/23 Allergies Allergy/AdvReac Type Severity Reaction Status Date / Time meperidine AdvReac Severe Vomiting Verified 05/03/23 10:08 Review of Systems Review of Systems: CONSTITUTIONAL: Denies fever, chills, or sweats. EYES: Denies visual changes, redness, or discharge. ENT: Denies rhinorrhea, congestion, sore throat, or otalgia. CARDIOVASCULAR: Denies chest pain, palpitations, or edema. RESPIRATORY: Denies cough or dyspnea. GASTROINTESTINAL: Denies abdominal pain, nausea, vomiting, or diarrhea. GENITOURINARY: Reports dysuria urgency, frequency. Denies hematuria. SKIN: Denies rash or itching. MUSCULOSKELETAL: Denies back pain, joint pain, or myalgia. NEUROLOGIC: Denies headache, numbness, or weakness. PSYCHIATRIC: Denies anxiety or depression. All other systems reviewed are negative, except as documented in HPI. [facility] Past Medical History Medical History Anxiety Arthritis Coronary artery disease Diastolic dysfunction GERD without esophagitis Hyperlipidemia Hypertension Hypothyroidism Non-ST elevation (NSTEMI) myocardial infarction Transient ischemic attack Surgical History Surgical History History of appendectomy History of arthroplasty of left shoulder History of bunionectomy History of cardiac cath History of cataract extraction with lens replacement Family History Family History Father Cerebrovascular accident Mother Cerebrovascular accident Family history of coronary artery disease Sibling Patient's sister is in good health Patient's brother is in good health Other Family history of cardiovascular disease Hypertension Social History Social History Social History: Surrogate medical decision maker: Geronimo Saab, spouse. Code status: Full code. Smoking status: Never smoker Second hand tobacco smoke exposure: Yes (a long time ago) Alcohol intake: current Alcohol use details: rarely Substance use: never Substance use type: does not use Lack of Transportation: No Lack of Food: Never True Current Housing: I Have Housing Concerned About Future Housing: No Difficulty Paying Gas/Electric Bills: No Difficulty Paying for Meds: No Currently Unemployed: No Education: High School Diploma/GED Difficulty w/ Childcare or Family Care: No Living arrangements: with family Additional living arrangements comments: Spiritual care concerns: No Agree to blood products: No Comments
== END 2023-05-03 10:47 | disposition home or self-care (01) ==
PROVIDERS: Emergency Provider Nurse Practitioner Family; PCP Family Medicine
DX: N39.0 Urinary tract infection, site not specified (principal); M19.90 Unspecified osteoarthritis, unspecified site; I25.10 Atherosclerotic heart disease of native coronary artery without angina pectoris; K21.9 Gastro-esophageal reflux disease without esophagitis; E03.9 Hypothyroidism, unspecified; I10 Essential (primary) hypertension; I25.2 Old myocardial infarction; Z86.73 Personal history of transient ischemic attack (TIA), and cerebral infarction without residual deficits
CPT/HCPCS: 81003; 87077; 87086; 87186; 99213; G0463

== ENCOUNTER 2023-07-17 07:17 | Outpatient (CLI) | payer MEDICARE, BC, SELFPAY ==
--- NOTE | ~2023-07-17 | DEXA_ITS ---
Bone Density Report Name: SWATI MURPHY Age: 78 Sex: Female Ethnicity: White Date of : 1945 Indication: osteopenia; prior fracture; postmenopausal Referring Provider: JOLANTA MONAHAN Study: Bone densitometry was performed. Exam Date: July 17, 2023 Accession number: [id number] Bone Density: Region BMD T-score Z-score Classification AP Spine(L1-L4) 0.959 -0.8 1.8 Normal Femoral Neck (Left) 0.645 -1.8 0.4 Osteopenia Total Hip (Left) 0.822 -1.0 1.0 Normal Femoral Neck (Right) 0.615 -2.1 0.1 Osteopenia Total Hip (Right) 0.798 -1.2 0.8 Osteopenia Total Hip Mean 0.810 -1.1 0.9 Osteopenia World Health Organization criteria for BMD impression classify patients as: Normal (T-score at or above -1.0), Osteopenia (T-score between -1.0 and -2.5), or Osteoporosis (T-score at or below -2.5). 10-year Fracture Risk(1): Major Osteoporotic Fracture 21% Hip Fracture 5.5% Reported Risk Factors: [place] (), Neck BMD=0.615, BMI=31.0, previous fracture (1) FRAX(R) Version 3.08. Fracture probability calculated for an untreated patient. Fracture probability may be lower if the patient has received treatment. Previous Exams: Region Exam Age BMD T-score BMD Change BMD Change Date g/cm2 vs Baseline vs Previous AP Spine (L1-L4) 07/17/2023 78 0.959 -0.8 0.040 (4.4%)* 0.040 (4.4%)* 07/05/2017 72 0.918 -1.2 Total Hip(Left) 07/17/2023 78 0.822 -1.0 -0.106 (-11.4% -0.106 (-11.4% 07/05/2017 72 0.928 -0.1 Total Hip(Right) 07/17/2023 78 0.798 -1.2 -0.144 (-15.3% -0.144 (-15.3% 07/05/2017 72 0.942 0.0 *Denotes significance at 95% confidence level, LSC for AP Spine = 0.022 g/cm2, LSC for Total Hip = 0.027 g/cm2 Clinical Information Provided by Patient: Has had a low trauma fracture Has used the following medications: Calcium Menopause Age: 45 No regular weight bearing exercise Drinks caffeinated beverages Onset of menses at age 11 Number of children 0 Impression: The patient has low bone mass, based on the Right Femoral Neck T-score. The patient has an estimated ten-year risk of hip fracture of 5.5% and an estimated ten-year risk of major fracture of 21%, based on the WHO FRAX algorithm. The patient has risk factors, including: previous fracture. The BMD for the Total Hip(Left) decreased, changing by -11.4% since the last DXA exam. The BMD for the Total Hip(Right) decreased, changing by -15.3% since the la
[2023-07-17 07:52] LABS: Hematocrit 36.3 % (37.0-47.0); Mean Corpuscular HGB Conc 33.1 g/dl (32-36); Mean Corpuscular Hemoglobin 29.7 pg (26-34); Mean Corpuscular Volume 89.9 fl (80-100); Mean Platelet Volume 9.6 fl (7.4-10.4); Platelet Count Result 290 k/mm3 (150-375); Red Blood Count 4.04 M/mm3 (4.2-5.4); Red Cell Distribution Width 13.2 % (11.5-14.5); White Blood Count 6.1 K/mm3 (4.5-10.0)
[2023-07-17 08:04] LABS: Alanine Aminotransferase 21 U/L (6-35); Albumin Level 4.4 g/dL (3.5-5.1); Alkaline Phosphatase 61 U/L (38-126); Anion Gap 8 mmol/L (8-16); Aspartate Amino Transferase 33 U/L (14-36); Bilirubin,Total 0.7 mg/dL (0.2-1.3); Blood Urea Nitrogen 15 mg/dL (7-17); Calcium 9.4 mg/dL (8.4-10.2); Carbon Dioxide 25 mmol/L (22-30); Chloride 99 mmol/L (98-107); Estimated Glomerular Filt Rate > 60; Glucose 97 mg/dL (65-110); Potassium 3.9 mmol/L (3.4-5.0); Sodium 132 mmol/L (137-145)
[2023-07-17 08:24] LABS: Free T4 Free Thyroxine 1.37 ng/mL (0.78-2.19)
== END 2023-07-17 07:18 | disposition home or self-care (01) ==
LOC: ANHIMG 07:18
PROVIDERS: PCP Family Medicine; Visit Provider Family Medicine
DX: E78.5 Hyperlipidemia, unspecified (principal); I10 Essential (primary) hypertension; E03.9 Hypothyroidism, unspecified; G47.00 Insomnia, unspecified; G45.9 Transient cerebral ischemic attack, unspecified; I25.10 Atherosclerotic heart disease of native coronary artery without angina pectoris; K21.00 Gastro-esophageal reflux disease with esophagitis, without bleeding; Z78.0 Asymptomatic menopausal state
CPT/HCPCS: 36415; 77080; 80053; 84439; 84443; 85027

== ENCOUNTER 2023-10-21 11:15 | Outpatient (CLI) | payer MEDICARE, BC, SELFPAY ==
--- NOTE | ~2023-10-21 | CT_ITS ---
EXAMINATION: CT brain wo con DATE: 10/21/2023 11:31 INDICATION: Head injury. Headache. TECHNIQUE: Computed tomography (CT) of the head was performed without intravenous contrast. The mA wa s adjusted according to patient size. Iterative reconstruction technique was employed. The dose-lengt h product was 605.33 mGy-cm. COMPARISON: Head CT 03/25/2023 FINDINGS: There are scattered areas of low attenuation in the cerebral white matter, which is within normal limits for the patient's age. There is no intracranial hemorrhage, acute infarction, or abnor mal intracranial mass lesion. The ventricles are normal in size. There are likely changes of ocular l ens replacement surgeries. There is mild mucosal thickening in the paranasal sinuses. The mastoid air cells are normal. IMPRESSION: 1. Normal aging brain. Reviewed, dictated and finalized at location [facility] IMPRESSION: 1. Normal aging brain.
== END 2023-10-21 11:16 | disposition home or self-care (01) ==
LOC: ANHIMG 11:16
PROVIDERS: PCP Family Medicine; Visit Provider Nurse Practitioner Family
DX: S09.90XA Unspecified injury of head, initial encounter (principal); X58.XXXA Exposure to other specified factors, initial encounter; R51.9 Headache, unspecified; Z79.01 Long term (current) use of anticoagulants
CPT/HCPCS: 70450

== ENCOUNTER 2023-12-04 13:10 | Emergency (ER) | payer MEDICARE, BC, SELFPAY ==
--- NOTE | ~2023-12-04 | XR_ITS ---
Clinical Indication: Chest pain PA and lateral views of the chest: Comparison: None Findings: The lungs are clear, without evidence of focal consolidation or pleural effusion. Cardiome diastinal silhouette is within normal limits. Bones and soft tissues are unremarkable. Impression: Normal chest. Reviewed, dictated and finalized at location . Impression: Normal chest.
[2023-12-04 13:11] VITALS: BP 144/69; PULSE 72; RESP 18; TEMP 36.2; O2SAT 96
--- NOTE | 2023-12-04 13:49 | ED.GENADULT ---
HPI - General Adult General Chief complaint: Unspecified <Sridhar Smith APRN - Last Filed: 12/04/23 13:51> Stated complaint: L breast pain <Sridhar Smith APRN - Last Filed: 12/04/23 13:51> Time Seen by Provider: 12/04/23 13:49 <Sridhar Smith APRN - Last Filed: 12/04/23 13:51> Focused HPI: Iam is a 70-year-old female patient presenting to the emergency room today with complaints of left upper medial breast pain. Symptoms have been going on for a few days but has been worse today. She reports that is a constant sharp pain rating as a 9/10 currently. She denies any associated shortness of breath. History of cardiomyopathy, hypertension, high cholesterol. No history of a heart catheterization but had had a loop recorder removed 3 years ago. General: Well-developed, well nourished, in no apparent distress Head: Normocephalic, atraumatic. Chest wall: Tenderness to palpation over the left upper medial breast tissue without palpable mass, redness, or erythema, even rise and fall of the chest wall, no bruising or swelling noted Cardio: Regular rate and rhythm, s1 and s2 normal, no murmur appreciated. Resp: Clear to auscultation bilaterally, no rhonchi, rales, wheezing or rubs. Extremities: No deformity, no edema, no cyanosis, capillary refill less than 2 seconds, peripheral pulses palpable and strong. Integumentary: Ashley, warm, and dry, intact without lesion, no rashes. Patient screened in triage and initial orders placed. Additional care and disposition to be based upon diagnostic testing and treatment. <Sridhar Smith APRN - Last Filed: 12/04/23 13:51> Source: patient <Sridhar Smith APRN - Last Filed: 12/04/23 13:51> Mode of arrival: ambulatory <Sridhar Smith APRN - Last Filed: 12/04/23 13:51> Limitations: no limitations <Sridhar Smith APRN - Last Filed: 12/04/23 13:51> History of Present Illness HPI narrative: I agree with the above HPI. Additionally patient was helping her with multiple heavy items including 40 lb bags of salt and packages of bottled water just prior to her pain beginning. <Bashir García MD - Last Filed: 12/04/23 16:38> Related Data Home medications: Home Medications Medication Instructions Recorded Confirmed Dulcolax (bisacodyl) 1 tablet PO BID 10/05/19 10/28/23 calcium carbonate 600 mg-vitamin 1 tablet PO BID 09/22/20 10/28/23 D3 5 mcg (200 unit) tablet nifedipine 30 mg tablet,extended 30 mg PO QAM 09/22/20 10/28/23 release Cortisone Injections 05/03/23 10/28/23 hydrochlorothiazide 12.5 mg tablet 12.5 mg PO DAILY PRN edema 10/28/23 10/28/23 <Sridhar Smith APRN - Last Filed: 12/04/23 13:51> Allergies/adverse reactions: Allergies Allergy/AdvReac Type Severity Reaction Status Date / Time meperidine AdvReac Severe Vomiting Verified 10/28/23 09:38 <Sridhar Smith APRN - Last Filed: 12/04/23 13:51> Review of Systems Review of Systems: All systems reviewed & are unremarkable except as noted in HPI and below <Bashir García MD - Last Filed: 12/04/23 16:38> Constitutional: Constitutional: Reports no additional constitutional complaints <Bashir García MD - Last Filed: 12/04/23 16:38> ENT: Reports system reviewed and no additional complaints, except as documented <Bashir García MD - Last Filed: 12/04/23 16:38> Cardiovascular: Cardiovascular: Reports chest pain, Denies syncope, Denies rapid heart rate, Denies leg edema and Denies dyspnea on exertion <Bashir García MD - Last Filed: 12/04/23 16:38> Respiratory: Respiratory: Reports no additional respiratory complaints <Bashir García MD - Last Filed: 12/04/23 16:38> Gastrointestinal: Gastrointestinal: Reports no additional gastrointestinal complaints <Bashir García MD - Last Filed: 12/04/23 16:38> Genitourinary: Genitourinary: Reports no additional female genitourinary complaints
--- NOTE | 2023-12-04 13:51 | ECG_ITS ---
SEE SCANNED COPY FOR CONFIRMED REPORT MTDD
[2023-12-04 14:11] LABS: Basophils Percent Auto 0.3 % (0.2-1.2); Eosinophils Absolute Auto 0.1 K/mm3 (0-0.3); Eosinophils Percent Auto 0.8 % (0-4.4); Hematocrit 36.3 % (37.0-47.0); Hemoglobin 11.9 g/dL (12.0-15.0); Immature Granulocyte Absolute 0.02 K/mm3 (0.00-0.031); Immature Granulocyte Percent A 0.3 % (0-0.5); Lymphocytes Absolute Auto 1.11 K/mm3 (0.9-3.2); Lymphocytes Percent Auto 17.9 % (18.3-44.2); Mean Corpuscular HGB Conc 32.8 g/dl (32-36); Mean Corpuscular Hemoglobin 29.2 pg (26-34); Monocytes Absolute Auto 0.6 K/mm3 (0.1-0.6); Monocytes Percent Auto 8.9 % (2.6-8.5); Neutrophils Absolute Auto 4.4 K/mm3 (1.3-6.7); Neutrophils Percent Auto 71.8 % (45.5-73.1); Platelet Count Result 287 k/mm3 (150-375); Red Blood Count 4.08 M/mm3 (4.2-5.4); Red Cell Distribution Width 13.8 % (11.5-14.5); White Blood Count 6.2 K/mm3 (4.5-10.0)
[2023-12-04 14:23] LABS: INR 0.9; Partial Thromboplastin Time 27.7 Seconds (22.3-36.8); Prothrombin Time 12.4 Seconds (11.1-14.7)
[2023-12-04 14:31] VITALS: BP 151/64; PULSE 60; RESP 12; O2SAT 99
[2023-12-04 14:34] LABS: Alanine Aminotransferase 24 U/L (6-35); Albumin Level 4.4 g/dL (3.5-5.1); Alkaline Phosphatase 69 U/L (38-126); Anion Gap 5 mmol/L (4-12); Aspartate Amino Transferase 37 U/L (14-36); Bilirubin,Total 0.5 mg/dL (0.2-1.3); Blood Urea Nitrogen 19 mg/dL (7-17); Calcium 9.8 mg/dL (8.4-10.2); Carbon Dioxide 30 mmol/L (22-30); Chloride 96 mmol/L (98-107); Estimated CRCL calculation 46 ml/min; Estimated Glomerular Filt Rate > 60; Glucose 93 mg/dL (65-110); Potassium 4.2 mmol/L (3.4-5.0); Sodium 131 mmol/L (137-145)
[2023-12-04 14:35] LABS: Troponin I < 0.012 ng/mL (0.000-0.034)
[2023-12-04 15:36] VITALS: BP 157/97; PULSE 64; RESP 18; O2SAT 100
[2023-12-04 17:17] VITALS: BP 150/90; PULSE 71; RESP 18; O2SAT 98
== END 2023-12-04 17:18 | disposition home or self-care (01) ==
PROVIDERS: Nurse Practitioner Family; Emergency Provider Emergency Medicine; PCP Family Medicine
DX: R07.89 Other chest pain (principal); I42.9 Cardiomyopathy, unspecified; I10 Essential (primary) hypertension; I25.10 Atherosclerotic heart disease of native coronary artery without angina pectoris; I25.2 Old myocardial infarction; E78.00 Pure hypercholesterolemia, unspecified; E03.9 Hypothyroidism, unspecified; M19.90 Unspecified osteoarthritis, unspecified site; K21.9 Gastro-esophageal reflux disease without esophagitis; Z86.73 Personal history of transient ischemic attack (TIA), and cerebral infarction without residual deficits; Z96.612 Presence of left artificial shoulder joint; Z96.1 Presence of intraocular lens; Z98.49 Cataract extraction status, unspecified eye; Z77.22 Contact with and (suspected) exposure to environmental tobacco smoke (acute) (chronic); I44.0 Atrioventricular block, first degree
CPT/HCPCS: 36415; 71046; 80053; 84484; 85025; 85610; 85730; 93005; 99284

== ENCOUNTER 2024-01-29 15:51 | Outpatient (CLI) | payer MEDICARE, BC, SELFPAY ==
[2024-01-29 17:49] LABS: Thyroid Stimulating Hormone 0.464 uIU/mL (0.465-4.680)
== END 2024-01-29 15:52 | disposition home or self-care (01) ==
LOC: ANHLAB 15:54
PROVIDERS: PCP Family Medicine; Visit Provider Family Medicine
DX: E78.5 Hyperlipidemia, unspecified (principal)
CPT/HCPCS: 36415; 84443

== ENCOUNTER 2024-07-20 12:03 | Outpatient (CLI) | payer MEDICARE, BC, SELFPAY ==
[2024-07-20 12:48] LABS: Hematocrit 39.2 % (37.0-47.0); Hemoglobin 13.2 g/dL (12.0-15.0); Mean Corpuscular HGB Conc 33.7 g/dl (32-36); Mean Corpuscular Hemoglobin 28.9 pg (26-34); Mean Corpuscular Volume 85.8 fl (80-100); Mean Platelet Volume 9.6 fl (7.4-10.4); Platelet Count Result 302 k/mm3 (150-375); Red Blood Count 4.57 M/mm3 (4.2-5.4); Red Cell Distribution Width 13.5 % (11.5-14.5); White Blood Count 7.3 K/mm3 (4.5-10.0)
[2024-07-20 13:18] LABS: Alanine Aminotransferase 18 U/L (6-35); Albumin Level 4.6 g/dL (3.5-5.1); Alkaline Phosphatase 84 U/L (38-126); Anion Gap 7 mmol/L (4-12); Aspartate Amino Transferase 35 U/L (14-36); Bilirubin,Total 0.8 mg/dL (0.2-1.3); Blood Urea Nitrogen 17 mg/dL (7-17); Calcium 9.9 mg/dL (8.4-10.2); Carbon Dioxide 30 mmol/L (22-30); Chloride 97 mmol/L (98-107); Cholesterol 205 mg/dL (0-200); Estimated Glomerular Filt Rate > 60; Glucose 103 mg/dL (65-110); HDL Direct 97 mg/dL; Potassium 4.1 mmol/L (3.4-5.0); Sodium 134 mmol/L (137-145); Triglycerides 90 mg/dL (<150)
[2024-07-20 13:28] LABS: LDL Cholesterol Direct 75 mg/dL
[2024-07-20 13:58] LABS: Vitamin D 25 Hydroxy 45.7 ng/mL
== END 2024-07-20 12:04 | disposition home or self-care (01) ==
PROVIDERS: PCP Family Medicine; Visit Provider Family Medicine
DX: E55.9 Vitamin D deficiency, unspecified (principal); E78.5 Hyperlipidemia, unspecified; R20.0 Anesthesia of skin; I25.10 Atherosclerotic heart disease of native coronary artery without angina pectoris; E87.1 Hypo-osmolality and hyponatremia; E03.9 Hypothyroidism, unspecified; R51.9 Headache, unspecified
CPT/HCPCS: 36415; 80053; 80061; 82306; 84443; 85027

== ENCOUNTER 2024-07-27 14:00 | Outpatient (RCR) | payer MEDICARE, BC, SELFPAY ==
--- NOTE | 2024-07-02 13:27 | OPREHPOC ---
Outpatient Therapy Plan of Care This is a Multidisciplinary Plan of Care that may contain components documented by all disciplines (PT, OT, and ST.) PT Problem 1 PT Problem #1 Knowledge Deficit PT Goal 1 Goal / Goal Update [place] with HEP Target Visit 4 PT Problem 2 PT Problem #2 Pain PT Goal 1 Goal / Goal Update Report no pain greater than 2/10 for a consistent 2 weeks Target Visit 8 PT Problem 3 PT Problem #3 Impaired Range of Motion PT Goal 1 Goal / Goal Update 1. Improve nayan cervical rotation to 60 degrees to improve cervical facet mobility 2. Improve nayan side bending to 35 degrees to improve facet closing and opening Target Visit 8 PT Goal 2 Goal / Goal Update Require no postural cues for upright cervical posture 75% of the time Target Visit 8 PT Problem 4 PT Problem #4 Impaired Strength PT Goal 1 Goal / Goal Update Improve nayan shoulder external rotation strength to 4+/5 to improve shoulder stability to reduce cervical strain with ADLs. Target Visit 8
--- NOTE | 2024-07-02 13:28 | PTOPEVAL1 ---
Assessment and note entered by Kush Borrero, PT Evaluation Information Assessment Status Evaluation Diagnosis Headaches, M54.81 Occipital Neuralgia ICD-10 Condition Codes (PT) Cervicalgia M54.2 Onset December 2023 Subjective Information Reports that she has been having sub occipital headaches for better part of the year. She has history of a fall but unsure if that contributed although she did hit her head on the ground. She denies any dizziness but the medications are making her drowsy. She is also having trouble sleeping at night which has been fairly persistent . She has history of left shoulder surgery with acromial decompression. Reported Pain Level Pain Score 8: Self Report Assessment PT Clinical Summary Patient presents with signs and symptoms consistent with cervicalgia and cervicogenic headaches. Discomfort is noted with left compressive activity at this time. Patient will benefit from skilled therapy to address cervical mobility and posture with emphasis on shoulder girdle strengthening to promote reduced cervical compression and compensation with ADL performance. Plan of Care Interventions Electrical Stimulation,Hot Pack/Cold Pack,Manual Therapy,Neuro Re-education,Therapeutic Activities, Therapeutic Exercise Other Interventions Dry Needling PT Services Indicated Yes Treatment Frequency and 2x/week for 8 visits Duration These treatments will address the objective and functional deficits as defined above. The patient will be advanced safely and appropriately in order for the patient to progress towards his/her prior level of function. Additional exercises will be introduced and as well as a comprehensive home exercise program upon discharge, if needed, ?to ensure carryover of functional gains achieved in the clinic. This treatment plan has been reviewed and agreement upon by the patient.
--- NOTE | 2024-07-27 15:00 | OPREHPOC ---
Outpatient Therapy Plan of Care This is a Multidisciplinary Plan of Care that may contain components documented by all disciplines (PT, OT, and ST.) PT Problem 1 PT Problem #1 Knowledge Deficit PT Goal 1 Goal / Goal Update [place] with HEP Target Visit 4 Progress Met PT Problem 2 PT Problem #2 Pain PT Goal 1 Goal / Goal Update Report no pain greater than 2/10 for a consistent 2 weeks Target Visit 8 Progress Met PT Problem 3 PT Problem #3 Impaired Range of Motion PT Goal 1 Goal / Goal Update 1. Improve nayan cervical rotation to 60 degrees to improve cervical facet mobility 2. Improve nayan side bending to 35 degrees to improve facet closing and opening Target Visit 8 Progress Met PT Goal 2 Goal / Goal Update Require no postural cues for upright cervical posture 75% of the time Target Visit 8 Progress Met PT Problem 4 PT Problem #4 Impaired Strength PT Goal 1 Goal / Goal Update Improve nayan shoulder external rotation strength to 4+/5 to improve shoulder stability to reduce cervical strain with ADLs. Target Visit 8 Progress Partially Met
--- NOTE | 2024-07-27 15:00 | PTOPDC ---
Assessment and note entered by Kush Borrero, PT Evaluation Information Assessment Status Discharge Diagnosis Headaches, M54.81 Occipital Neuralgia ICD-10 Condition Codes (PT) Cervicalgia M54.2 Onset December 2023 Subjective Information Reports that her headaches are less intense and slightly less frequent at this time. Feels that it is overall getting better. Reports that she slept really well this weekend, but sometimes she still does not sleep as well. Reported Pain Level Pain Score 5: Self Report Assessment PT Clinical Summary Patient has shown great subjective improvement in frequency and duration of pain symptoms. Still showing some minor objective deficits but those are overall improved as well. Elects to discharge to [facility] at this time. Plan of Care PT Services Indicated Yes
== END 2024-07-28 11:16 | disposition home or self-care (01) ==
LOC: ANHPT 14:00
PROVIDERS: PCP Family Medicine; Visit Provider Psychiatry & Neurology Neurology
DX: M54.81 Occipital neuralgia (principal); G44.209 Tension-type headache, unspecified, not intractable
CPT/HCPCS: 97110; 97140; 97161

== ENCOUNTER 2025-01-08 18:29 | Inpatient (IN) | payer MEDICARE, BC, SELFPAY ==
--- NOTE | ~2025-01-08 | XR_ITS ---
XR chest 1V portable Ordering provider: Bashir García History: 79 years Female with . altered mental status . Comparison: December 04, 2023 FINDINGS: MEDIASTINUM: The cardiac silhouette is slightly enlarged. LUNGS: No infiltrates, effusions or pneumothorax. OTHER: No free air under the diaphragm. Degenerative changes of the spine. IMPRESSION: No acute cardiopulmonary pathology. Reviewed, dictated and finalized at location A.
--- NOTE | ~2025-01-08 | CT_ITS ---
CT brain wo con Ordering provider: Bashir García MD History: 79 years Female with . altered mental status . Comparison: October 21, 2023 Technique: CT of the head without contrast. Radiation reduction technique utilized.The dose-length product was 605.33 mGy-cm. FINDINGS: BRAIN PARENCHYMA AND CSF SPACES: No midline shift, mass effect or hemorrhage. The brain parenchyma a nd CSF spaces are otherwise normal. VISUALIZED PARANASAL SINUSES: Well aerated. MASTOIDS: Well aerated. BONES: The bones appear intact. SOFT TISSUES: Visualized nasopharynx is normal. Superficial soft tissues are normal. IMPRESSION: No acute intracranial findings. Reviewed, dictated and finalized at location A.
--- NOTE | 2025-01-08 18:31 | ECG_ITS ---
Test Date: 2025-01-08 20:07:03 Measurements Intervals [place] Rate: 80 P: 74 NM: 170 QRS: 27 QRSD: 83 T: 74 QT: 392 QTc: 453 Interpretive Statements SINUS RHYTHM WITH OCCASIONAL SUPRAVENTRICULAR PREMATURE COMPLEXES ABNORMAL ECG No previous ECG available for comparison Electronically Signed On 01-09-2025 08:05:33 CDT by Milton Robbins M.D.
[2025-01-08 19:14] VITALS: TEMP 36.9
[2025-01-08 19:14] LABS: Glucose Point of Care 130 mg/dl (65-105)
[2025-01-08 19:19] LABS: Basophils Percent Auto 0.2 % (0.2-1.2); Eosinophils Percent Auto 0.1 % (0-4.4); Hematocrit 41.9 % (37.0-47.0); Hemoglobin 13.8 g/dL (12.0-15.0); Immature Granulocyte Absolute 0.04 K/mm3 (0.00-0.031); Immature Granulocyte Percent A 0.4 % (0-0.5); Lymphocytes Absolute Auto 0.95 K/mm3 (0.9-3.2); Lymphocytes Percent Auto 8.5 % (18.3-44.2); Mean Corpuscular HGB Conc 32.9 g/dl (32-36); Mean Corpuscular Hemoglobin 29.4 pg (26-34); Mean Corpuscular Volume 89.1 fl (80-100); Monocytes Absolute Auto 0.7 K/mm3 (0.1-0.6); Monocytes Percent Auto 5.9 % (2.6-8.5); Neutrophils Absolute Auto 9.5 K/mm3 (1.3-6.7); Neutrophils Percent Auto 84.9 % (45.5-73.1); Platelet Count Result 250 k/mm3 (150-375); White Blood Count 11.2 K/mm3 (4.5-10.0)
[2025-01-08 19:29] LABS: Alanine Aminotransferase 28 U/L (6-35); Albumin Level 4.8 g/dL (3.5-5.1); Alkaline Phosphatase 66 U/L (38-126); Anion Gap 12 mmol/L (4-12); Aspartate Amino Transferase 54 U/L (14-36); Bilirubin,Total 1.4 mg/dL (0.2-1.3); Blood Urea Nitrogen 20 mg/dL (7-17); Calcium 9.5 mg/dL (8.4-10.2); Carbon Dioxide 26 mmol/L (22-30); Chloride 96 mmol/L (98-107); Estimated Glomerular Filt Rate 51; Glucose 117 mg/dL (65-110); Potassium 3.6 mmol/L (3.4-5.0); Sodium 134 mmol/L (137-145)
[2025-01-08 19:41] LABS: Troponin I 0.026 ng/mL (0.000-0.034)
[2025-01-08 19:49] VITALS: PULSE 83; RESP 26; O2SAT 94
[2025-01-08 19:51] LABS: INR 0.9; Partial Thromboplastin Time 23.2 Seconds (22.3-36.8); Prothrombin Time 12.7 Seconds (11.1-14.7)
[2025-01-08 20:01] VITALS: BP 150/110; PULSE 86; RESP 18
--- OUTSIDE RECORDS SUMMARY | 2025-01-08 20:05 | XMS_ITS | Clinical Summary ---
Author Organization [facility] [place] [address] Address [address] [place] [address] Care Team Providers Care Metal Polisher And Buffer Apprentice Name Role Phone William Webster DO Unavailable Guy Jeff MD Primary Care Provider [phone] Allergies Active Allergy Reactions Criticality Noted Date Comments Ketoconazole Rash Medium 06/09/2020 Meloxicam Redness Low 11/05/2022 Meperidine Nausea only,Vomiting Medium 06/10/2017 Prednisolone Other (See comments) Low 01/06/2024 Medications aspirin 81 mg tablet Take 2 tablets (162 mg total) by mouth daily Active calcium carbonate-naya min D3 500mg (1,250mg) -600 unit tablet Take by mouth 2 (two) times a day Active docusate sodium (COLACE) 100 mg capsuleIndicat ions:constipat ion Take 1 capsule (100 mg total) by mouth 2 (two) times a day Active traZODone (DESYREL) 100 mg tablet Take 0.5 tablets (50 mg total) by mouth nightly as needed 50 - 100 mg Active levothyroxine (SYNTHROID, LEVOTHROID) 75 mcg tablet Take 0.075 mcg by mouth daily Not taking on Sat/Sun 8 09/03/19 19 Active fluticasone (FLONASE) 50 mcg/actuation nasal spray as needed 1 08/05/20 18 Active clobetasoL (TEMOVATE) 0.05 % cream Apply topically as needed Active valACYclovir (VALTREX) 1 gram tablet Take 1 tablet (1,000 mg total) by mouth as needed Active lisinopriL (PRINIVIL,ZEST RIL) 20 mg tablet Take 1 tablet (20 mg total) by mouth 2 (two) times a day Active UNABLE TO FIND Sodium 50 mg tabs (100 mg daily) Active gabapentin (NEURONTIN) 300 mg capsule Take 1 capsule (300 mg total) by mouth daily 05/10/20 24 Active nortriptyline (PAMELOR) 25 mg capsule TAKE 1 CAPSULE BY MOUTH EVERY DAY AT BEDTIME 05/19/20 24 Active atorvastatin (LIPITOR) 20 mg tablet Take 1 tablet (20 mg total) by mouth daily 90 tablet 3 08/13/20 24 Active NIFEdipine (NIFEdipine CC) 30 mg 24 hr tablet TAKE 1 TABLET(30 MG) BY MOUTH DAILY 90 tablet 12/19/19 25 Active NIFEdipine (NIFEdipine CC) 30 mg 24 hr tablet TAKE 1 TABLET(30 MG) BY MOUTH DAILY 90 tablet 2 03/06/20 24 025 Discontinued Active Problems Problem Noted Date Diagnosed Date Visit for wound check 12/28/2021 Visit for wound check 01/12/2021 Status post placement of implantable loop record er 01/05/2021 Overview (01/05/2021): Medtronic Implantable Loop Recorder. Dx; Cryptogenic Stroke. DOI 01/04/2021- Melendez. [facility]link remote monitoring. 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 Continue Toprol XL . Assessment & Plan (10/14/2017 11:06 AM MUSIC THERAPY TEACHER): Ejection fraction has recovered on last echocardiogram. Continue beta-yasmani. She is off KILLIAN-inhibitor at this time. She finished cardiac rehabilitation and doing well. Assessment & Plan (06/10/2017 11:14 AM CDT): Her ejection fraction between 40-50 percent. Will repeat an echocardiogram to see if there is an resolution of her wall motion abnormality. Continue beta-yasmani, Killian inhibitor. If the echocardiogram does not show to solution of the wall motion abnormality in the LAD to return really, then it could be either she had an old NC in the past involving the LAD or may be viral myocarditis involving the LAD territory. We will refer to cardiac rehab. Patient is very concerned about starting exercise on her own and therefore she will benefit from cardiac rehabilitation. Essential hypertension 06/10/2017 Assessment & Plan (05/26/2018 11:52 AM CDT): Blood pressure is controlled. Continue current treatment Assessment & Plan (10/14/2017 11:06 AM MUSIC THERAPY TEACHER): Blood pressure controlled. Continue current medications Assessment & Plan (06/10/2017 11:00 AM CDT): Blood pressure slightly elevated today but she is nervous about coming here to the clinic. Will reassess next visit and keep blood pressure diary Mixed hyperlipidemia 06/10/2017 Assessment & Plan (05/26/2018 11:51 AM CDT): Lipid panel controlled. Continue statin. Assessment & Plan (10/14/2017 11:07 AM MUSIC THERAPY TEACHER): Continue Lipitor. Assessment & Plan (06/10/2017 11:11 AM CDT): Will obtain lipid panel next visit. Intercostal pain 06/10/2017 Assessment & Plan (10/14/2017 11:07 AM MUSIC THERAPY TEACHER): She will undergo left breast MRI. Intercostal pain involves the left breast. Assessment & Plan (06/10/2017 11:13 AM CDT): She complained of left chest pain while she is in the clinic. Chest pain was reproducible and the EKG shows no changes from before. Likely musculoskeletal pain. CAD (coronary artery disease) Resolved Problems Problem Noted Date Diagnosed Date Resolved Date Elevated troponin 06/10/2017 11/27/2021 Assessment & Plan (05/26/2018 11:51 AM CDT): Cardiac catheterization shows no obstructive CAD. She continued 1 year treatment of Plavix and therefore we will discontinue Plavix. However I will continue aspirin 81 mg daily. Assessment & Plan (10/14/2017 11:08 AM MUSIC THERAPY TEACHER): Will continue Plavix for a total 1 year. No occlusive coronary artery disease on catheterization. Assessment & Plan (06/10/2017 11:12 AM CDT): Although there was no definite coronary artery disease to explain the elevated troponin, will continue aspirin Plavix for a year per guidelines. Surgical History Surgery Date Site/Laterality Comments CATARACT EXTRACTION APPENDECTOMY BREAST BIOPSY Left CARDIAC CATHETERIZATION BUNIONECTOMY 09/30/2020 Left LAPAROSCOPY endometriosis OOPHORECTOMY SHOULDER SURGERY Left Medical History Medical History Date Comments Hypertension Cardiomyopathy (HCC) Heart attack (HCC) Acid reflux Arthritis Hyperlipidemia TIA (transient ischemic attack) X 2 CAD (coronary artery disease) Hypothyroidism Skin cancer Family History Medical History Relation Name Comments Hyperlipidemia Brother 1 Hypertension Brother 1 Hyperlipidemia Brother 2 Hypertension Brother 2 Hyperlipidemia Brother 3 Hypertension Brother 3 Heart failure Father Hyperlipidemia Father Hypertension Father Stroke Father Hypertension Mother Stroke Mother Hyperlipidemia Sister 1 Hypertension Sister 1 Hyperlipidemia Sister 2 Hypertension Sister 2 Relation Name Status Comments Brother 1 Alive Brother 2 Alive Brother 3 Alive Father (Age 89) Mother (Age 91) Sister 1 Alive Sister 2 Alive Social History Tobacco Use Types Packs/Day Years Used Date Smoking Tobacco: Never Smokeless Tobacco: Never Tobacco Cessation:Counseling Given: Not Answered Alcohol Use Standard Drinks/Week Comments Yes 1 (1 standard drink = 0.6 oz pur e alcohol) yearly AUDIT-C Answer Date Recorded Q1: How often do you have a drink containing alc ohol? Never 01/04/2021 Average Number of Drinks Not on file 021 Frequency of Binge Drinking Not on file 12/24 Comments Unknown Sex and Gender Information Value Date Recorded Sex Assigned at Not on file Legal Sex Female 9:56 AM CDT Gender Identity Not on file Sexual Orientation Not on file Obstetrics History Last Filed Vital Signs Vital Sign Reading Time Taken Comments Blood Pressure 126/70 07/13/2024 10:18 AM MUSIC THERAPY TEACHER Pulse 86 07/13/2024 10:18 AM MUSIC THERAPY TEACHER Temperature 36.7 C (98 F) 01/04/2021 7:04 AM CDT Respiratory Rate 16 01/04/2021 7:04 AM CDT Oxygen Saturation 97% 07/13/2024 10:18 AM MUSIC THERAPY TEACHER Inhaled Oxygen Concentration - - Weight 75.5 kg (166 lb 8 oz) 07/13/2024 10:18 AM MUSIC THERAPY TEACHER Height 157.5 cm (5' 2 ) 07/13/2024 10:18 AM MUSIC THERAPY TEACHER Body Mass Index 30.45 07/13/2024 10:18 AM MUSIC THERAPY TEACHER Plan of Treatment Health Maintenance Due Date Last Done Comments Depression Screening 1945 Hepatitis C Screening 1945 Osteoporosis Screening-Bone Density Scan 1945 DTaP/Tdap/Td Vaccine (1 - Tdap) 02/03/1956 Hepatitis B Screening 1963 Zoster Vaccine (1 of 2) 1995 Well Visit 65+ 2010 Pneumococcal vaccine 65+ (2 of 2 - PPSV23) 06/26/2018 06/26/2017 Fall Risk Assessment 01/04/2022 01/04/2021 Influenza Vaccine (Season Ended) 2025 06/10/2018, 06/26/2017, 06/21/2016, Additional history exists Medical Devices Implanted Type Area Homebound Teacher Device Identifier Shelf Expiration Date Model / Serial / Lot Medtronic Cardiac Rhythm Mgmt Linqsys Reveal Linq Mycarelink Insertable Loop Recorder Automatic - [id number] - [id number] Implanted:Qty: 1 on 01/04/2021 by Lion Melendez MD at [facility] Left: Chest Medtronic [employer] 10/23/2021 LINQSYS / [id number] / Insurance [place] [address] [place] [id number] [place] [address] [facility] Care Teams Metal Polisher And Buffer Apprentice Relationship Specialty Start Date End Date Guy Jeff MD PCP - General Family Practice 05/13/23 William Webster DO Internal Medicine 12/27/20
--- OUTSIDE RECORDS SUMMARY | 2025-01-08 20:05 | XMS_ITS | Clinical Summary ---
Author Organization [facility] Address [address] [place] [address] Care Team Providers Care Ceramics Instructor Name Role Phone Unavailable Primary Care Provider Unavailabl e Source Comments [facility],non-owned Affiliates and Associated Physician Practices is amultiple site organization consisting of ambulatory clinics and hospital sitesin [place], [place], [place] and [place]. This disclosure is being madepursuant to the Care Everywhere program and may not contain all information available regarding this patient. Last updated 18.[facility] [employer] Allergies No known active allergies Medications * Be aware that medications may not be up to date on this document. Alwaysverify current medications with the patient. ATORVASTATIN CALCIUM PO Active Calcium Citrate-Vitamin D (CALCIUM + D PO) Active levothyroxine (SYNTHROID) 75 MCG tablet Take 75 mcg by mouth daily before breakfast Active lisinopril-hydr oCHLOROthiazide (PRINZIDE; ZESTORETIC) 20-25 MG tablet Take 1 tablet by mouth once daily Active METOPROLOL SUCCINATE ER PO Acti ve TRAZODONE HCL PO Active Social History Tobacco Use Types Packs/Day Years Used Date Smoking Tobacco: Never Smokeless Tobacco: Never Comments No Sex and Gender Information Value Date Recorded Sex Assigned at Not on file Legal Sex Female 12:21 PM ORNAMENTAL IRONWORKING SUPERVISOR Gender Identity Not on file Sexual Orientation Not on file Last Filed Vital Signs Vital Sign Reading Time Taken Comments Blood Pressure 122/70 09/14/2018 12:50 PM ORNAMENTAL IRONWORKING SUPERVISOR Pulse 80 09/14/2018 12:50 PM ORNAMENTAL IRONWORKING SUPERVISOR Temperature 38.7 C (101.7 F) 09/14/2018 12:50 PM ORNAMENTAL IRONWORKING SUPERVISOR Respiratory Rate 18 09/14/2018 12:50 PM ORNAMENTAL IRONWORKING SUPERVISOR Oxygen Saturation 95% 09/14/2018 12:50 PM ORNAMENTAL IRONWORKING SUPERVISOR Inhaled Oxygen Concentration - - Weight 74.8 kg (165 lb) 09/14/2018 12:50 PM ORNAMENTAL IRONWORKING SUPERVISOR Height 157.5 cm (5' 2 ) 09/14/2018 12:50 PM ORNAMENTAL IRONWORKING SUPERVISOR Body Mass Index 30.18 09/14/2018 12:50 PM ORNAMENTAL IRONWORKING SUPERVISOR Plan of Treatment Health Maintenance Due Date Last Done Comments BONE DENSITY TESTING 1945 DTAP/TDAP/TD VACCINES (1 - Tdap) 02/03/1964 PNEUMOCOCCAL VACCINE 50+ (1 of 1 - PCV) 1995 ZOSTER VACCINE (1 of 2) 1995 Respiratory Syncytial Virus (RSV) Vaccine Pt: or over 60 yrs (1 - 1-dose 75+ series) 02/03/2020 COVID-19 VACCINE ( - 2023-2 5 season) 2024 DEPRESSION SCREENING 08/26/2024 INFLUENZA VACCINE (Season Ended) 2025 HEPATITIS B VACCINE Aged Out No longe r eligible based on patient's age to complete this topic HIB VACCINE Aged Out No longer eligi ble based on patient's age to complete this topic HPV VACCINE Aged Out No longer eligi ble based on patient's age to complete this topic MENINGOCOCCAL (Group B) VACC INE SHARED DECISION-MAKING Aged Out No longer eligibl e based on patient's age to complete this topic MENINGOCOCCAL GROUPS A/C/Y/W VACCINE Aged Out No longer eligible b ased on patient's age to complete this topic Insurance MEDICARE MEDICARE
--- OUTSIDE RECORDS SUMMARY | 2025-01-08 20:05 | XMS_ITS | Referral Summary ---
Author Organization [facility] [place] [address] Address [address] [place] [address] Care Team Providers Care Robot Designer Name Role Phone William Webster DO Unavailable Guy Jeff MD Primary Care Provider [phone] Allergies Active Allergy Reactions Criticality Noted Date [...] . Assessment & Plan (10/14/2017 11:06 AM STAFF PHYSICAL THERAPY ASSISTANT): Ejection fraction has recovered on last echocardiogram. [...] could be either she had an old SD in the past involving the LAD or may be viral myocarditis involving the LAD territory. We will refer to cardiac rehab. Patient is very concerned about starting exercise on her own and therefore she will benefit from cardiac rehabilitation. Essential hypertension 06/10/2017 Assessment & Plan (05/26/2018 11:52 AM CDT): Blood pressure is controlled. Continue current treatment Assessment & Plan (10/14/2017 11:06 AM STAFF PHYSICAL THERAPY ASSISTANT): Blood pressure controlled. Continue current medications Assessment & Plan (06/10/2017 11:00 AM CDT): Blood pressure slightly elevated today but she is nervous about coming here to the clinic. Will reassess next visit and keep blood pressure diary Mixed hyperlipidemia 06/10/2017 Assessment & Plan (05/26/2018 11:51 AM CDT): Lipid panel controlled. Continue statin. Assessment & Plan (10/14/2017 11:07 AM STAFF PHYSICAL THERAPY ASSISTANT): Continue Lipitor. Assessment & Plan (06/10/2017 11:11 AM CDT): Will obtain lipid panel next visit. Intercostal pain 06/10/2017 Assessment & Plan (10/14/2017 11:07 AM STAFF PHYSICAL THERAPY ASSISTANT): She will undergo left breast MRI. Intercostal [...] daily. Assessment & Plan (10/14/2017 11:08 AM STAFF PHYSICAL THERAPY ASSISTANT): Will continue Plavix for a total 1 year. No occlusive coronary artery disease on catheterization. Assessment & Plan (06/10/2017 11:12 AM CDT): Although there was no definite coronary artery disease to explain the elevated troponin, will continue aspirin Plavix for a year per guidelines. Social History Tobacco Use Types Packs/Day Years Used Date Smoking Tobacco: Never Smokeless Tobacco: Never Tobacco Cessation:Counseling Given: Not Answered Alcohol Use Standard Drinks/Week Comments Yes 1 (1 standard drink = 0.6 oz pur e alcohol) yearly AUDIT-C Answer Date Recorded Q1: How often do you have a drink containing alc ohol? Never 01/04/2021 Average Number of Drinks Not on file Frequency of Binge Drinking Not on file 12/24 Comments Unknown Sex and Gender Information Value Date Recorded Sex Assigned at Not on file Legal Sex Female 9:56 AM CDT Gender Identity Not on file Sexual Orientation Not on file Last Filed Vital Signs Vital Sign Reading Time Taken Comments Blood Pressure 126/70 07/13/2024 10:18 AM STAFF PHYSICAL THERAPY ASSISTANT Pulse 86 07/13/2024 10:18 AM STAFF PHYSICAL THERAPY ASSISTANT Temperature 36.7 C (98 F) 01/04/2021 7:04 AM CDT Respiratory Rate 16 01/04/2021 7:04 AM CDT Oxygen Saturation 97% 07/13/2024 10:18 AM STAFF PHYSICAL THERAPY ASSISTANT Inhaled Oxygen Concentration - - Weight 75.5 kg (166 lb 8 oz) 07/13/2024 10:18 AM STAFF PHYSICAL THERAPY ASSISTANT Height 157.5 cm (5' 2 ) 07/13/2024 10:18 AM STAFF PHYSICAL THERAPY ASSISTANT Body Mass Index 30.45 07/13/2024 10:18 AM STAFF PHYSICAL THERAPY ASSISTANT Plan of Treatment Not on file Medical Devices Implanted Type Area Parts Driver Device Identifier Shelf Expiration Date Model / Serial / Lot Medtronic Cardiac Rhythm Mgmt Linqsys Reveal Linq Mycarelink Insertable Loop Recorder Automatic - [id number] - [id number] Implanted:Qty: 1 on 01/04/2021 by Lion Melendez MD at [facility] Left: Chest [employer] 10/23/2021 LINQSYS / [id number] / [place] [address] [facility] [facility] [address] [place] [facility] [address] MEDICARE [facility] [employer] Care Teams Robot Designer Relationship Specialty Start Date End Date Guy Jeff MD PCP - General Family Practice 05/13/23 William Webster DO Internal Medicine 12/27/20
--- OUTSIDE RECORDS SUMMARY | 2025-01-08 20:05 | XMS_ITS | Data Portability ---
Author Organization [place] - [place] [employer], Main Office Address [address] [place] [address] Care Team Providers Care Colored Liquid Plastic Applier Name Role Phone JOLANTA MONAHAN Primary Care Provider [phone] JOLANTA MONAHAN Referring Provider [phone] Assessment Encounter Date Assessment Date Assessment LastModified by Organization Details LastModified Time 05/02/2023 05/02/2023 Patient returns status post knee pain right. This has resolved to a large degree with conservative treatment. She has got good motion strength now the pain that she has is tolerable she wants to leave it alone. Secondary complaint is that of shoulder pain left. Apparently I did surgery about 30 years ago on her and now she has got pain and stiffness. She has elevation 120 external rotation 20 pain at the extremes. Clearly she has a bit of a frozen shoulder. We will continue with begin therapy. I injected with 20 mg Kenalog 4 cc 1% lidocaine. For prescription drug management will try Voltaren for pain and inflammation joseph Not available 05/02/2023 11:32:20 06/06/2023 06/06/2023 The patient has continuing signs and symptoms of adhesive capsulitis left shoulder. We talked about treatment options today in detail we are going to extend her therapy for another month I have advised her she needs to do exercises 2 to 3 times a day on her own at home despite the discomfort she needs to push through this and work on aggressive stretching we talked about what to do at home. We will get her a short course of oral prednisone followed by diclofenac 75 mg b.i.d. with food. We will also give her shot of cortisone today therefore under sterile conditions at her request I injected the patient's left shoulder joint in the office with 4 cc 0.5% ropivacaine and 20 mg of Kenalog. The patient tolerated the procedure well. We talked about doing her best to be compliant and following all the instructions to get the best result see her back in 1 month for her next recheck she voiced understanding and agrees above plan she will call for any further problems difficulties or questions. Not available 06/06/2023 11:44:22 07/04/2023 07/04/2023 The patient has adhesive capsulitis left shoulder she is making progress with physical therapy and previous oral anti-inflammatori es as well as couple of cortisone injections. At this point she will continue with aggressive stretching exercises we talked about this in detail today she is going to talk to her primary doctor about the diclofenac see if she can take this for short course she will also take Tylenol just prior to doing her physical therapy exercises I have encouraged her to do these at least twice a day every day if not more often and really get aggressive on stretching even though it does hurt. She is making some progress hopefully this will continue to improve. Will see her back again in 4-6 weeks to see what impact the treatment has had. She agrees that she is making some improvement. She voiced understanding agrees above plan she will call for any further problems difficulties or questions. Not available 07/04/2023 11:38:47 08/15/2023 08/15/2023 Patient has primary osteoarthritis of the right knee joint as described above. We talked about treatment options today in detail she wanted proceed with cortisone therefore under sterile conditions I injected the patient's right knee joint in the office with 4 cc 0.5% bupivacaine and 20 mg of Kenalog. Patient tolerated the procedure well. I will see her back as needed we could do this again in 3 months if necessary she voiced understanding agrees above plan she will call for any further problems difficulties or questions. we will also do a course of physical therapy for her we talked about treatment options and she wanted proceed with this as well. She also has the option for gel shots in the future we talked about this we could try this somewhere down the road as well if necessary. 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 We talked about treatment options today in detail she is limited in what medication she can take there is nothing I can give her in terms of oral anti-inflammatori es or steroids. She did however want to try shot of cortisone. Therefore at her request under sterile conditions I injected the patient's right hip trochanteric bursa in the patient's bilateral pelvic rim regions at the point of maximal tenderness with 4 cc 0.5% bupivacaine and 20 mg of Kenalog each for a total of 3 injections the patient tolerated the procedures well. I have also recommended a course of physical therapy for stretching exercises and ultrasound and modalities etc.. I will see her back as needed if she continues to have significant symptoms she will call she voiced understanding agrees above plan she will call for any further problems difficulties or questions. Not available 12/20/2023 15:47:38 Plan of Treatment Reminders Order Date Submit Date Provider Last Modified By Organization Details Last Modified Time Details Appointments None recorded. Lab None recorded. Referral physical therapist referral - bilateral pelvic rim pain...... .please contact patient to schedule 2023 024 [email or web address] [facility] [place] [facility], [address], [place], [address], 4 16:00:33 physical therapist referral - Please contact patient to schedule 2022 023 [email or web address] [facility] [place] [facility], [address], [place], [address], 3 16:22:44 physical therapist referral - continue 2022 023 [facility] [place] [facility], [address], [place], [address], 3 12:23:56 physical therapist referral - please contact patient to schedule 2022 023 [facility] [place] [facility], [address], [place], [address], 3 12:10:39 Procedures injection/ aspiration joint/burs a (PROC) 2023 024 [email or web address] In-Office Order, Internal Use Only DO Not Attach Compendium DO Not Attach Compendium, Do Not Delete/merge, [id number] 4 15:49:31 injection/ aspiration joint/burs a (PROC) 2023 024 [email or web address] In-Office Order, Internal Use Only DO Not Attach Compendium DO Not Attach Compendium, Do Not Delete/merge, [id number] 4 08:59:11 injection/ aspiration joint/burs a (PROC) 2022 023 [email or web address] In-Office Order, Internal Use Only DO Not Attach Compendium DO Not Attach Compendium, Do Not Delete/merge, [id number] 3 13:43:09 injection/ aspiration joint/burs a (PROC) - in office procedure, administer ed by provider 2022 023 [email or web address] In-Office Order, Internal Use Only DO Not Attach Compendium DO Not Attach Compendium, Do Not Delete/merge, [id number] 3 11:44:38 injection/ aspiration joint/burs a (PROC) - in office procedure, administer ed by provider 2022 023 [email or web address] In-Office Order, Internal Use Only DO Not Attach Compendium DO Not Attach Compendium, Do Not Delete/merge, [id number] 3 11:22:51 Surgeries None recorded. Imaging XR, hip + pelvis, bilateral 2023 024 [email or web address] [facility] [place], [address], [place], [address], 4 16:00:33 Medication Orders bupivacain e HCl 0.5 % (5 mg/mL) injection solution 2023 024 [email or web address] [facility] #[id number], [address], [place], [place], [id number], 4 16:00:33 Kenalog 10 mg/mL suspension for injection [address] [facility]75652, [address] [place] [address], [id number], 4 16:00:33 bupivacain e HCl 0.5 % (5 mg/mL) injection solution [address] [facility] #82452, [address] [place] [address], [id number], 4 16:00:33 Kenalog 10 mg/mL suspension for injection [address] [facility] #07622, [address] [place] [address], [id number], 4 16:00:33 bupivacain e HCl 0.5 % (5 mg/mL) injection solution [address] [facility] #55589, [address] [place] [address], [id number], 3 14:25:28 Kenalog 10 mg/mL suspension for injection [address] [facility] #05604, [address] [place] [address], [id number], 3 14:25:28 Kenalog 10 mg/mL suspension for injection [address] [facility] #37912, [address] [place] [address], [id number], 3 11:45:51 ropivacain e (PF) 5 mg/mL (0.5 %) injection solution 2022 023 [address] [facility]63646, [address] [place] [address], [id number], 3 11:45:51 prednisone 10 mg tablets in a dose pack 2022 023 [email or web address] [facility] #59050, [address] [place] [address], [id number], 11:45:51 diclofenac sodium 75 mg tablet,del ayed release 2022 023 [email or web address] [facility] #15270, [address] [place] [address], [id number], 3 11:45:51 Kenalog 10 mg/mL suspension for injection [address] [facility] #21232, [address] [place] [address], [id number], 3 11:29:38 ropivacain e (PF) 5 mg/mL (0.5 %) injection solution 2022 023 [email or web address] [id number] [facility] #46272, [address] [place] [address], [id number], 3 11:29:38 diclofenac sodium 75 mg tablet,del ayed release 2022 023 [email or web address] [id number] [facility] #46699, [address] [place] [address], [id number], 3 11:29:38 Patient TargetsNo targets recorded. Patient InstructionsNo instructions recorded. Reason for Referral Physical Therapist Referral for Pain of left shoulder joint please contact patient to schedule Referring Physician: Carlo Lerner, Orthopedic Surgery, Encounter Date: 05/02/2023 Physical Therapist Referral for Adhesive capsulitis of left shoulder continue Referring Physician: Arturo Grimaldo, Orthopedic Surgery, Encounter Date: 06/06/2023 Physical Therapist Referral for Chondromalacia of right patella Please contact patient to schedule Referring Physician: Arturo Grimaldo, Orthopedic Surgery, Encounter Date: 08/15/2023 Physical Therapist Referral for Trochanteric bursitis of right hip bilateral pelvic rim pain.......please contact patient to schedule Referring Physician: Arturo Grimaldo, Orthopedic Surgery, Encounter Date: 12/20/2023 Results Created Date Observation Date Name Description Value Unit Range Abnormal Flag Note LastModifiedBy Organization Detail LastModifiedTime 12/20/19 24 XR, hip + pelvi s, bilat eral No observ ation record ed. [email or web address] [facility] [place] [address] [facility] [address], [place], [address], 12/20/2023 15:49:34 Result Notes None recorded. Problems Name Problem SNOMED Code Status Onset Date Resolution Date Notes Provider Name and Address Organization Details Recorded Time Pain of right shoulder joint 2427028785187 9100 Active 2021 Not Available [facility] 3 12:56:10 Mammograph y abnormal 772047705 Active Not Available [facility] 3 12:56:10 Lesion of radial nerve 138378483 Active Not Available [facility] 3 12:56:10 Insomnia 354858801 Active Not Available [facility] 3 12:56:10 Localized, primary osteoarthr itis of the pelvic region and thigh 772000875 Active Not Available [facility] 3 12:56:10 Knee joint effusion 235113246 Active Not Available [facility] 3 12:56:11 Partial thickness rotator cuff tear 245715860 Active 2021 Not Available [facility] 3 12:56:11 Partial thickness rotator cuff tear 037209063 Active 2021 Not Available [facility] 3 12:56:11 Lateral epicondyli tis 510147981 Active Not Available [facility] 3 12:56:11 Biceps tendinitis 145543919 Active 2021 Not Available [facility] 3 12:56:11 Biceps tendinitis 939758924 Active 2021 Not Available [facility] 3 12:56:11 Gastro-eso phageal reflux disease with esophagiti s 693803382 Active Not Available [facility] 3 12:56:11 Calcific tendinitis of right shoulder 3487410774552 07 Active 2021 Not Available [facility] 3 12:56:11 Current tear of medial cartilage AND/OR meniscus of knee Active Not Available [facility] 3 12:56:11 Enthesopat hy of hip region 51832399 Active Not Available [facility] 3 12:56:11 Pain of right hip joint 8040016951798 02 Active 2021 Not Available [facility] 3 12:56:11 Trochanter ic bursitis of right hip 9455111474207 00 Active 2021 Not Available [facility] 3 12:56:11 Osteoarthr itis 276918798 Active Not Available [facility] 3 12:56:11 Hypothyroi dism 98428205 Active Not Available [facility] 3 12:56:12 Tibialis tendinitis 58750169 Active Not Available [facility] 3 12:56:12 Medial epicondyli tis 15475818 Active Not Available [facility] 3 12:56:12 Hyperlipid emia 63810690 Active Not Available [facility] 3 12:56:12 Disorder of bursa of shoulder region 86846762 Active Not Available [facility] 3 12:56:12 Essential hypertensi on 10457759 Active Not Available [facility] 3 12:56:12 Derangemen t of knee 64233190 Active Not Available [facility] 3 12:56:12 Pain in limb 78575343 Active Not Available [facility] 3 12:56:12 Pain of left shoulder joint 7301110272903 9109 Active 2022 Gracie Resendez, LAINE null, [place] [facility] 3 10:46:38 Tendinitis of left rotator cuff 9396040156095 9101 Active 2022 Carlo Lerner MD [address], [place], [address] , [facility] 3 11:26:56 Pain of right knee joint 0345838946459 00 Active 2022 Gracia Clint null, [place] [facility] 3 13:50:13 Chondromal acia of right patella 4713824402736 9108 Active 2022 Carlo Lerner MD [address], [place], [address] , [facility] 3 14:13:35 Adhesive capsulitis of left shoulder 0684900804240 07 Active 2022 Carlo Lerner MD [address], [place], [address] , [facility] 3 11:32:29 Osteoarthr itis of right knee joint 0972495322012 00 Active 2022 TEAGAN Saha [address], [address], [place], [address] , [facility] 3 15:10:17 Pain of bilateral hip joints 9220313134115 9100 Active 2023 Larissa Gonzalez CNA null, [place] [facility] 4 14:52:37 Pain in pelvis 07139697 Active 2023 Larissa Gonzalez CNA null, [place] [facility] 4 15:22:54 Problem Notes None recorded. Procedures Surgical History Date Name Laterality Status Provider Name and Address Organization Details Recorded Time 05/02/20 23 Ortho - Cortisone Injection completed Carlo Lerner MD [address], [place], [address], [facility] 05/02/2023 11:31:23 03/19/20 23 Ortho - Cortisone Injection completed Carlo Lerner MD [address], [address], [place], [address], [facility] 03/19/2023 15:31:49 02/29/20 23 Ortho - Cortisone Injection completed Carlo Lerner MD [address], [address], [place], [address], [facility] [email or web address] [facility] [employer] [facility] 02/28/2023 14:13:03 11/02/19 23 Ortho - Cortisone Injection completed Carlo Lerner MD [address], [place], [address], [facility] 11/01/2022 11:25:33 Cataract Surgery completed Not Available [facility] 10/24/2022 12:53:21 Appendectomy completed Not Available [facility] 10/24/2022 12:53:21 Breast Biopsy completed Not Available [facility] 10/24/2022 12:53:21 Unlisted procedure shoulder completed Not Available [facility] 10/24/2022 12:53:21 excision of ganglion cyst of wrist completed Not Available [facility] 10/24/2022 12:53:21 Imaging Results Imaging Date Name Status LastModified by Organiz ation Details LastModified Time 12/20/2023 XR, hip + pelvis, bilateral completed [email or web address] [facility] [place] [address], [place], [address], 12/20/2023 15:49:34 Procedure Notes None recorded. Medical Equipment None Reported. Allergies Allergen ID Allergen Name Allergen Category Reaction Reaction Severity Criticality Documentation Date Start Date Code Code System Note Provider Name and Address Organization Details Recorded Time 72165 prednisol one medicatio n other Not available Not available 10/24/2022 8638 RxNorm numb feeli ng Not Available [facility] 3 13:01:21 51498 Demerol medicatio n vomiting moderate Not available 10/24/2022 09638 1 RxNorm Not Available [facility] 3 13:01:21 Medications Name Sig Start Date Stop Date Status Note LastModified by Organization Details LastModified Time celecoxib 200 mg capsule TAKE 1 CAPSULE BY MOUTH EVERY DAY 03/19 completed Not Available Not Available Not Available amoxicillin 500 mg capsule active Not Available Not Available Not Available atorvastati n 40 mg tablet TAKE 1 TABLET BY MOUTH AT BEDTIME active Not Available Not Available No t Available neomycin-po lymyxin-hyd rocort 3.5 mg/mL-10,00 0 unit/mL-1 % ear solution active Not Available Not Available Not Available prednisone 10 mg tablet active Not Available Not Available Not Available atorvastati n 20 mg tablet TAKE 1 TABLET BY MOUTH DAILY 02/22 completed Not Available Not Available Not Available cetirizine 10 mg tablet 10 MG ORALLY DAILY NEEDED FOR ALLERGY SYMPTOMS active Not Available Not Available No t Available atorvastati n 10 mg tablet TAKE 1 TABLET BY MOUTH EVERY DAY 10/05 completed Not Available Not Available Not Available lisinopril 20 mg-hydrochl orothiazide 12.5 mg tablet TAKE 1 TABLET BY MOUTH DAILY active Not Available Not Available No t Available metoprolol succinate ER 50 mg tablet,exte nded release 24 hr 10/05 completed Not Available Not Available Not Available valacyclovi r 1 gram tablet TAKE 2 TABLET BY MOUTH TWICE DAILY NEEDED FOR COLD SCORES active Not Available Not Available No t Available urea 40 % topical cream APPLY TO CALLUSES EVERY DAY 02/22 completed Not Available Not Available Not Available meloxicam 15 mg tablet Take 1 tablet every day by oral route. 03/19 completed Not Available Not Available Not Available phenazopyri dine 200 mg tablet TAKE 1 TABLET BY MOUTH THREE TIMES DAILY NEEDED FOR PAIN active Not Available Not Available No t Available lisinopril 20 mg tablet TAKE 1 TABLET BY MOUTH TWICE DAILY active Not Available Not Available No t Available ondansetron HCl 4 mg tablet TAKE 1 TABLET BY MOUTH EVERY 4 TO 6 HOURS NEEDED 02/22 completed Not Available Not Available Not Available bupivacaine HCl 0.5 % (5 mg/mL) injection solution Take 40 mg by injection route. 2023 active Not Available Not Available Not Avai lable clobetasol 0.05 % topical cream APPLY TOPICALLY TO FEET TWICE DAILY X 3 WEEKS. 03/19 completed Not Available Not Available Not Available penicillin V potassium 500 mg tablet TAKE 1 TABLET BY MOUTH EVERY 8 HOURS TILL ALL TAKEN 09/21 completed Not Available Not Available Not Available nifedipine ER 30 mg tablet,exte nded release active Not Available Not Available Not Available acetaminoph en 300 mg-codeine 30 mg tablet TAKE 1 TABLET EVERY 4 TO 6 HOURS NEEDED 02/22 completed Not Available Not Available Not Available clopidogrel 75 mg tablet 10/05 completed Not Available Not Available Not Available amoxicillin 500 mg tablet TAKE 1 TABLET BY MOUTH TWICE DAILY 12/18 completed Not Available Not Available Not Available levothyroxi ne 75 mcg tablet TAKE 1 TABLET BY MOUTH EVERY DAY SATURDAY THROUGH SATURDAY AT 630 active Not Available Not Available No t Available ketorolac 0.5 % eye drops 10/05 completed Not Available Not Available Not Available prednisone 10 mg tablets in a dose pack Take 1 tab by mouth, 3 times a day for 3 daysTake 1 tab by mouth 2 times a day for 2 daysTake 1 tab by mouth once a day for 1 day 2022 active Not Available Not Available Not Avai lable oxycodone-a cetaminophe n 5 mg-325 mg tablet TAKE 1 TABLET BY MOUTH EVERY 6 HOURS NEEDED SEVERE FOR PAIN ONLY AFTER SURGERY 02/22 completed Not Available Not Available Not Available levothyroxi ne 88 mcg tablet TAKE ONE TABLET BY MOUTH DAILY 10/05 completed Not Available Not Available Not Available alprazolam 0.5 mg tablet 02/22 completed Not Available Not Available Not Available prednisolon e acetate 1 % eye drops,suspe nsion 10/05 completed Not Available Not Available Not Available trazodone 100 mg tablet TAKE 1/2 TO 1 TABLET BY MOUTH EVERY NIGHT AT BEDTIME active Not Available Not Available No t Available ciprofloxac in 0.3 % eye drops 10/05 completed Not Available Not Available Not Available Kenalog 10 mg/mL suspension for injection Take 40 mg by injection route. 2023 active [facility]: 0003- [phone]- [phone] Not Available Not Available Not Available benzonatate 100 mg capsule active Not Available Not Available Not Available cephalexin 500 mg capsule TAKE 1 CAPSULE BY MOUTH TWICE DAILY FOR 7 DAYS active Not Available Not Available No t Available ranitidine 150 mg tablet TAKE ONE TABLET BY MOUTH TWICE DAILY 10/05 completed Not Available Not Available Not Available omeprazole 20 mg capsule,del ayed release active Not Available Not Available Not Available diclofenac sodium 75 mg tablet,thomas yed release TAKE 1 TABLET BY MOUTH TWICE DAILY active Not Available Not Available No t Available quinapril 20 mg tablet active Not Available Not Available Not Available ranitidine 150 mg capsule BID active Not Available Not Available Not Available lisinopril 5 mg tablet 10/05 completed Not Available Not Available Not Available hydrochloro thiazide 25 mg tablet TAKE 1/2 TABLET BY MOUTH EVERY DAY 10/05 completed Not Available Not Available Not Available lidocaine HCl 20 mg/mL (2 %) injection solution Take 80 mg by injection route. 02/22 completed Not Available Not Available Not Available metoprolol succinate ER 25 mg tablet,exte nded release 24 hr TAKE 1 TABLET BY MOUTH EVERY DAY active Not Available Not Available No t Available irbesartan 150 mg tablet TAKE ONE TABLET BY MOUTH DAILY active Not Available Not Available No t Available cefdinir 300 mg capsule active Not Available Not Available Not Available fluticasone propionate 50 mcg/actuati on nasal spray,suspe nsion SHAKE LIQUID AND USE 2 SPRAYS IN EACH NOSTRIL DAILY NEEDED FOR CONGESTIO N active Not Available Not Available No t Available amoxicillin 875 mg-potassiu m clavulanate 125 mg tablet TAKE 1 TABLET BY MOUTH TWICE DAILY WITH FOOD 02/22 completed Not Available Not Available Not Available oxycodone 5 mg tablet TAKE 1 TABLET BY MOUTH EVERY 4 HOURS NEEDED FOR PAIN 02/22 completed Not Available Not Available Not Available chlorhexidi ne gluconate 0.12 % mouthwash RINSE MOUTH WITH 15ML FOR 30 SECONDS AM AND PM AFTER TOOTHEBRU SHING. EXPECTORA TE AFTER RINSING. DO NOT SWALLOW 02/22 completed Not Available Not Available Not Available lidocaine (PF) 10 mg/mL (1 %) injection solution In office injection administe red by the provider 02/22 completed [facility]: [phone]- [phone] Not Available Not Available Not Available lidocaine (PF) 5 mg/mL (0.5 %) injection solution Take 30 mg by injection route. 02/22 completed Not Available Not Available Not Available hydrochloro thiazide 12.5 mg tablet TAKE 1 TABLET BY MOUTH TWICE DAILY NEEDED FOR SWELLING active Not Available Not Available No t Available Mar-Cof CG 7.5 mg-225 mg/5 mL oral liquid TAKE 7.5 ML BY MOUTH EVERY 4 TO 6 HOURS NEEDED FOR COUGH active Not Available Not Available No t Available Prevnar 13 (PF) 0.5 mL intramuscul ar syringe active Not Available Not Available N ot Available ropivacaine (PF) 5 mg/mL (0.5 %) injection solution Take 20 mg by injection route. 2022 active [facility] [id number] [phone] Not Available Not Available Not Available Os-Serafin + D3 10/05 completed Not Available Not Available Not Available Fluad 65yr up(PF)45 mcg(15 mcgx3)/0.5 mL intramuscul ar syringe active Not Available Not Available N ot Available Xiidra 5 % eye drops in a dropperette 10/05 completed Not Available Not Available Not Available Fluad 65yr up(PF)45 mcg(15 mcgx3)/0.5 mL intramuscul ar syringe active Not Available Not Available N ot Available Vitals Date Recorded Body height Body mass index (BMI) Body weight Provider Name and Address Organization Details Last Updated DateTime 05/02/2023 152.4 cm 32 kg/m2 26134.15 g Larissa Carlos, PATCH WASHER [employer] 05/02/2023 11:07:39 Date Recorded Body height Body mass index (BMI) Body weight Provider Name and Address Organization Details Last Updated DateTime 06/06/2023 152.4 cm 31.2 kg/m2 01869.78 g Guadalupe Quinteros ATC L [employer] 06/06/2023 11:19:29 Date Recorded Body height Body mass index (BMI) Body weight Provider Name and Address Organization Details Last Updated DateTime 07/04/2023 152.4 cm 31.2 kg/m2 10314.78 g Larissa Carlos, PATCH WASHER [employer] 07/04/2023 11:17:57 Date Recorded Body height Body mass index (BMI) Body weight Provider Name and Address Organization Details Last Updated DateTime 08/15/2023 154.94 cm 29.9 kg/m2 45753.59 g Larissa Carlos, PATCH WASHER [employer] 08/15/2023 13:20:28 Date Recorded Body height Body mass index (BMI) Body weight Provider Name and Address Organization Details Last Updated DateTime 12/20/2023 152.4 cm 31.2 kg/m2 43514.78 parvez Larissa Gonzalez CNA [place] [facility] 12/20/2023 14:45:36 Social History Question Answer Notes LastModified by Organ[employer]at [employer] Details LastModified Time Tobacco Smoking Status Unknown If Ever Smoked Not Available [facility] 10/24/2022 12:53:01 What Was The Date Of Your Most Recent Tobacco Screening? 02/22/2022 [id number] Information not available 10/24/2022 Sex: Unknown Functional Status Question Answer Note LastModified by [employer] Details LastModified Time What is your level of alcohol consumption? Occasional [id number] Information not available 10/24/2022 Mental Status None recorded. Family History Relationship Description Onset Age of this Age Resolved Age Notes LastModified by Organization Details LastModified Time Father Family history of stroke [id number] Not available 10/24/2022 12:53:21 Mother Family history of stroke [id number] Not available 10/24/2022 12:53:21 Unspecified Relation History of hypertension [id number] Not available 10/24/2022 12:53:21 Unspecified Relation Heart disease [id number] Not available 10/24/2022 12:53:21 Medical History Condition Response SKIN PROBLEMS Y HEART DISEASE/HEART PROBLEMS Y ARTHRITIS Y OSTEOPOROSIS Y USE OF NSAIDS Y USE OF BLOOD THINNERS Y HAVE YOU BEEN HOSPITALIZED OR SEEN IN [facility] IN THE PAST YEAR ? Y HYPERTENSION Y STROKE/TIA Y Gynecological HistoryNo gynecological history recorded. Obstetrics History GPAL:G 0 P 0 0 0 0 Immunizations Vaccine Type Date Status Note Provider Nam e and Address Organization Details Recorded Time Influenza, split virus, quadrivalent, PF 5 completed Not Available [facility] 10/24/2022 13:01:08 Influenza, split virus, trivalent, preservative 4 completed Not Available [facility] 10/24/2022 13:01:08 Influenza, split virus, trivalent, PF 3 completed Not Available [facility] 10/24/2022 13:01:08 Past Encounters Encounter ID Performer Location Encounter Start Date Encounter Closed Date Diagnosis/Indication Diagnosis SNOMED-CT Code Diagnosis ICD10 Code Diagnosis Note [id number]|2025-01-09 13:08:33|2025-01-09 13:08:33|PM.IMPN||||"
--- OUTSIDE RECORDS SUMMARY | 2025-01-08 20:05 | XMS_ITS | CONTINUITY OF CARE DOCUMENT ---
Author Name jaime sandoval Address Unknown Organization [facility] Address [address] [place] [address] Phone [phone] Care Team Providers Care Accounting Advisory Services Manager Name Role Phone Peter PRINGLE, Hardik Unavailable [phone] ALEXANDRIA BOLAÑOS MD Unavailable ALEXANDRIA BOLAÑOS MD Unavailable [phone] INSURANCE PROVIDERS Payer name Policy type / Coverage type [place] red green party ID [place] [employer] Medicare [id number] [facility] [id number]
[2025-01-08 20:07] VITALS: O2SAT 97
--- NOTE | 2025-01-08 20:14 | ED.AMS ---
HPI - Altered Mental Status General Chief Complaint: Altered Mental Status Stated Complaint: altered mental status Time Seen by Provider: 01/08/25 19:00 History of Present Illness HPI narrative: 79-year-old female with a past medical history including prior TIA, mild cognitive impairment, headaches with occipital injections with Pain Management. She also has a history of coronary disease. Patient presents to the emergency department with chief complaint of confusion. Her family members are accompanying her and states that she has been acting more confused for last day or so but not exactly sure the last time she was completely normal as they only visit her and she lives with her who was just discharged from the hospital. Patient herself is a poor historian not able to provide me any collateral formation. When asked specifically what is going on she states “I feel fine. and then starts talking nonsense and not able to articulate in a clear fashion what she is feeling and appears confused, but she does not have any appreciable dysarthria. No head injuries or trauma. Family at bedside states that patient has been taking care of her sick at home which is got released from the hospital and they have not been sleeping and patient has been distraught over this. Patient herself has no lateralizing symptoms and has been complain of a headache for several days otherwise. Patient did states she had 1 episode of nauseousness this morning but denies any abdominal pain, nauseousness presently, vomiting, chest pain, shortness a breath. She was otherwise in her normal state of health recently. Related Data Home Medications Medication Instructions Recorded Confirmed Last Taken Type Dulcolax (bisacodyl) 1 tablet PO BID 10/05/19 04/17/24 12/20/21 19:00 History calcium 600 mg (as 1 tablet PO BID 09/22/20 04/17/24 12/20/21 19:00 History carbonate)-vitamin D3 5 mcg (200 unit) tablet nifedipine 30 mg tablet,extended 30 mg PO QAM 09/22/20 04/17/24 12/20/21 History release Allergies Allergy/AdvReac Type Severity Reaction Status Date / Time meperidine AdvReac Severe Vomiting Verified 12/21/24 14:21 Review of Systems Review of Systems: As reviewed above in [facility] Past Medical History Medical History Encounter for immunization Occipital neuralgia of left side Muscle contraction headache Occipital neuralgia of left side Diastolic dysfunction Transient ischemic attack Hypertension Anxiety Hypothyroidism Arthritis Coronary artery disease GERD without esophagitis Non-ST elevation (NSTEMI) myocardial infarction Hyperlipidemia Surgical History Surgical History History of cataract extraction with lens replacement History of bunionectomy History of arthroplasty of left shoulder History of cardiac cath History of appendectomy Family History Family History Father Cerebrovascular accident Mother Cerebrovascular accident Family history of coronary artery disease Sibling Patient's sister is in good health Patient's brother is in good health Other Family history of cardiovascular disease Hypertension Social History Social History Social History: Surrogate medical decision maker: Geronimo Saab, spouse. Code status: Full code. Smoking status: Never smoker Second hand tobacco smoke exposure: Yes (a long time ago) Alcohol intake: current Drinks per week: 1 Alcohol use details: rarely Substance use: never Substance use type: does not use Do You Feel Safe in your Home?: Yes Lack of Transportation: No Lack of Food: Never True Current Housing: I Have Housing Concerned About Future Housing: No Difficulty Paying Gas/Electric Bills: No Difficulty Paying for Meds: No Currently Unemployed: No Education: High School Diploma/GED Difficulty w/ Childcare or Family Care: No Living arrangements: with family Additional living arrangements comments: Spiritual care concerns: Yes Agree to blood products: No Exam Narrative: GENERAL: [Well-appearing, well-nourished, and in no acute distress.] HEAD: [Normocephalic, atraumatic.] EYES: [PERRLA and EOMI.] ENT: Nares clear, no rhinorrhea or epistaxis. Mucous membranes moist. NECK: Supple. CHEST: [Clear to auscultation. No respiratory distress.] HEART: [Regular rate and rhythm]. No murmur heard. [Normal peripheral pulses.] ABDOMEN: [Soft, nondistended], [nontender], [No rigidity or guarding] EXTREMITIES: Normal range of motion. [No edema.] SKIN: Warm, dry, no rash. NEURO: [No focal deficits]. Alert and oriented x2. Full strength and sensation throughout both arms and legs, no visual deficits, no facial asymmetries, no weakness in the arms or legs, normal gait. No dysarthria or aphasia. PSYCH: [Normal mood and affect.] Course Vital Signs Vital signs: Vital Signs Temperature 36.9 C 01/08/25 19:14 Temperature 36.8 C 01/09/25 04:07 Pulse Rate 74 01/09/25 04:07 Respiratory Rate 16 01/09/25 04:07 Blood Pressure 152/66 H 01/09/25 04:07 Pulse Oximetry 96 01/09/25 04:07 Oxygen Delivery Room Air 01/09/25 05:37 MDM - Altered Mental Status MDM Narrative Medical decision making narrative: 79-year-old female with a past medical history including chronic headaches, prior TIA, mild cognitive impairment, coronary disease. Patient presents to the emergency department with a chief complaint of confusion. Patient's family members are providing collateral formation is patient herself is a very poor historian at this time and only alert x2. Patient denies any complaints at this time and did states she felt nauseous earlier this morning but otherwise feels fine. Consider is a presently are for urinary tract infection, dehydration, electrolyte imbalances, metabolic disorder. Low suspicion intracranial pathology such as stroke but not excluded. Patient's workup reveals a minor leukocytosis 11, no anemia. Normal platelet count. Coagulation panel is normal. Electrolytes are largely unremarkable. She has an elevated BUN and creatinine from her baseline indicative of an acute kidney injury likely from dehydration. Normal glucose. Normal LFTs. Urinalysis has some minor red blood cells but no signs of infection. Greater than 20 casts are seen. Patient's head CT shows no acute intracranial findings. Patient's chest x-ray shows no acute cardiopulmonary pathology. I went and re-evaluated the patient and discussed with the family members next steps to take and including potential for discharge home versus admission. Patient is still not making much sense and appears very confused. She has no lateralizing symptoms and still remains without any focal deficits on my examination but at this point I felt uncomfortable with her discharge home especially that she lives alone with an equally impaired who just got discharged from the hospital requires higher level of care. I relayed my concerns the family members and they agreed. Patient will be admitted to the hospital for further evaluation of her acute confusion of unclear causes. I discussed the case with Rosalva the mid-level provider covering the hospitalist service and patient was accepted to a telemetry monitored bed at this time. Medical Records Attestation: I reviewed the patient's medical records. Lab Data Attestation: I reviewed the patient's lab results. 01/08/25 19:11 01/08/25 19:11 Labs: Lab Results 01/08/25 01/08/25 01/08/25 Range/Units 18:58 19:11 20:57 WBC 11.2 H (4.5-10.0) K/mm3 RBC 4.70 (4.2-5.4) M/mm3 Hgb 13.8 (12.0-15.0) g/dL Hct 41.9 (37.0-47.0) % MCV 89.1 (80-100) fl MCH 29.4 (26-34) pg MCHC 32.9 (32-36) g/dl RDW 14.0 (11.5-14.5) % Plt Count 250 (150-375) k/mm3 MPV 10.0 (7.4-10.4) fl Immature Gran % (Auto) 0.4 (0-0.5) % Neut % (Auto) 84.9 H (45.5-73.1) % Lymph % (Auto) 8.5 L (18.3-44.2) % [place] % (Auto) 5.9 (2.6-8.5) % Eos % (Auto) 0.1 (0-4.4) % Baso % (Auto) 0.2 (0.2-1.2) % Lymph # (Auto) 0.95 (0.9-3.2) K/mm3 [place] # (Auto) 0.7 H (0.1-0.6) K/mm3 Eos # (Auto) 0.0 (0-0.3) K/mm3 Baso # (Auto) 0.0 (0.0-0.1) K/mm3 Abs Immat Gran (auto) 0.04 H (0.00-0.031) K/mm3 Absolute Neuts (auto) 9.5 H (1.3-6.7) K/mm3 Absolute Nucleated RBC 0.000 (0.0-0.012) K/mm3 Nucleated RBC % 0.0 (0.0-0.2) % PT 12.7 (11.1-14.7) Seconds INR 0.9 APTT 23.2 (22.3-36.8) Seconds Sodium 134 L (137-145) mmol/L Potassium 3.6 (3.4-5.0) mmol/L Chloride 96 L (98-107) mmol/L Carbon Dioxide 26 (22-30) mmol/L Anion Gap 12 (4-12) mmol/L BUN 20 H (7-17) mg/dL Creatinine 1.05 H (0.7-1.0) mg/dL Estim Creat Clear Calc Not Reportable Estimated GFR 51 L (59 - ) Glucose 117 H (65-110) mg/dL POC Capillary Glucose 130 H (65-105) mg/dl Calcium 9.5 (8.4-10.2) mg/dL Total Bilirubin 1.4 H (0.2-1.3) mg/dL AST 54 H (14-36) U/L ALT 28 (6-35) U/L Alkaline Phosphatase 66 (38-126) U/L Troponin I 0.026 (0.000-0.034) ng/mL Total Protein 8.0 (6.3-8.2) g/dL Albumin 4.8 (3.5-5.1) g/dL Vitamin B12 (239-931) pg/mL Folate (2.76->20) ng/mL Urine Color Dark yellow (Yellow) Urine Appearance Clear (Clear) Urine pH 5.5 (5.0-9.0) Ur Specific [place] 1.029 (1.001-1.035) Urine Protein 3+ H (Negative) mg/dL Urine Glucose (UA) Negative (Negative) mg/dL Urine Ketones 3+ H (Negative) mg/dL Ur Blood (Man) 1+ H (Negative) Urine Nitrate Negative (Negative) Urine Bilirubin Negative (Negative) Urine Urobilinogen 1.0 (<2.0) mg/dL Leukocyte Esterase Rfl Negative (Negative) BAN/UL Urine RBC 3-5 H (0-2) /hpf Urine WBC 0-5 (0-3) /hpf Ur Squamous Epith Cells None seen (Few) /hpf Urine Bacteria None seen /hpf Urine Casts >20 Hyaline Casts Present (None) /lpf POC Urine HCG, Qual (Negative) 01/08/25 01/08/25 01/08/25 Range/Units 21:01 21:49 21:50 WBC (4.5-10.0) K/mm3 RBC (4.2-5.4) M/mm3 Hgb (12.0-15.0) g/dL Hct (37.0-47.0) % MCV (80-100) fl MCH (26-34) pg MCHC (32-36) g/dl RDW (11.5-14.5) % Plt Count (150-375) k/mm3 MPV (7.4-10.4) fl Immature Gran % (Auto) (0-0.5) % Neut % (Auto) (45.5-73.1) % Lymph % (Auto) (18.3-44.2) % [place] % (Auto) (2.6-8.5) % Eos % (Auto) (0-4.4) % Baso % (Auto) (0.2-1.2) % Lymph # (Auto) (0.9-3.2) K/mm3 [place] # (Auto) (0.1-0.6) K/mm3 Eos # (Auto) (0-0.3) K/mm3 Baso # (Auto) (0.0-0.1) K/mm3 Abs Immat Gran (auto) (0.00-0.031) K/mm3 Absolute Neuts (auto) (1.3-6.7) K/mm3 Absolute Nucleated RBC (0.0-0.012) K/mm3 Nucleated RBC % (0.0-0.2) % PT (11.1-14.7) Seconds INR APTT (22.3-36.8) Seconds Sodium (137-145) mmol/L Potassium (3.4-5.0) mmol/L Chloride (98-107) mmol/L Carbon Dioxide (22-30) mmol/L Anion Gap (4-12) mmol/L BUN (7-17) mg/dL Creatinine (0.7-1.0) mg/dL Estim Creat Clear Calc Estimated GFR (59 - ) Glucose (65-110) mg/dL POC Capillary Glucose (65-105) mg/dl Calcium (8.4-10.2) mg/dL Total Bilirubin (0.2-1.3) mg/dL AST (14-36) U/L ALT (6-35) U/L Alkaline Phosphatase (38-126) U/L Troponin I 0.018 D (0.000-0.034) ng/mL Total Protein (6.3-8.2) g/dL Albumin (3.5-5.1) g/dL Vitamin B12 282.0 (239-931) pg/mL Folate 14.2 (2.76->20) ng/mL Urine Color (Yellow) Urine Appearance (Clear) Urine pH (5.0-9.0) Ur Specific [place] (1.001-1.035) Urine Protein (Negative) mg/dL Urine Glucose (UA) (Negative) mg/dL Urine Ketones (Negative) mg/dL Ur Blood (Man) (Negative) Urine Nitrate (Negative) Urine Bilirubin (Negative) Urine Urobilinogen (<2.0) mg/dL Leukocyte Esterase Rfl (Negative) BAN/UL Urine RBC (0-2) /hpf Urine WBC (0-3) /hpf Ur Squamous Epith Cells (Few) /hpf Urine Bacteria /hpf Urine Casts Hyaline Casts (None) /lpf POC Urine HCG, Qual Negative (Negative) Imaging Data Attestation: I personally reviewed and interpreted this imaging study as follows: My impression: Impressions Head CT 01/08/25 18:49 IMPRESSION: No acute intracranial findings. Chest X-Ray 01/08/25 19:11 IMPRESSION: No acute cardiopulmonary pathology. Discharge Plan Discharge Clinical Impression: Acute confusion, Acute dehydration Patient Disposition: Still a Patient Condition: Stable
[2025-01-08 21:03] LABS: BEDSIDEPREGUCG Negative (Negative)
[2025-01-08 21:19] LABS: Add Urine Microscopic? YES; Appearance Urine Clear (Clear); Bacteria Urine None Seen /hpf; Bilirubin Urine Negative (Negative); Blood Urine 1+ (Negative); Color Urine Dark Yellow (Yellow); Glucose Urine UA Negative (Negative); Hyaline Casts Urine Present /lpf; Ketones Urine 3+ mg/dL (Negative); Leukocyte Esterase Ur Negative LEU/UL (Negative); Nitrate Urine Negative (Negative); Non Pathogenic Casts >20; Protein Urine 3+ mg/dL (Negative); Specific Grav Ur 1.029 (1.001-1.035); Squamous Epithelial Cell Urine None Seen /hpf (Few); WBC Urine 0-5 /hpf (0-3); pH Urine 5.5 (5.0-9.0)
--- NOTE | 2025-01-08 21:35 | ECG_ITS ---
Test Date: 2025-01-08 21:47:23 Measurements Intervals [place] Rate: 84 P: 63 WV: 167 QRS: -9 QRSD: 83 T: 58 QT: 296 QTc: 351 Interpretive Statements SINUS RHYTHM WITH OCCASIONAL SUPRAVENTRICULAR PREMATURE COMPLEXES POSSIBLE ANTERIOR MYOCARDIAL INFARCTION , OF INDETERMINATE AGE [30 ms Q WAVE IN V3/V4, OR R < 0.2 mV IN V4] INFERIOR MYOCARDIAL INFARCTION , PROBABLY OLD [40+ ms Q WAVE AND/OR ST/T ABNORMALITY IN II/aVF] ABNORMAL ECG Compared to ECG 01/08/2025 20:07:03 Myocardial infarct finding now present Electronically Signed On 01-09-2025 08:07:42 CDT by Milton Robbins M.D.
[2025-01-08 22:16] LABS: Troponin I 0.018 ng/mL (0.000-0.034)
[2025-01-09] VITALS (11 sets, daily range): BP systolic 114–185; BP diastolic 66–96; PULSE 71–104; RESP 16–20; TEMP 36.3–36.8; O2SAT 95–99; BMI 26.6
[2025-01-09] MEDS: LACTATED RINGERS 1,000 ML 999 ML IV CONT ×2 (00:09)
--- NOTE | 2025-01-09 00:25 | PC.NURSE ---
Pt keeps removing vitals.
[2025-01-09 01:42] LABS: Folic Acid 14.2 ng/mL (2.76->20)
--- NOTE | 2025-01-09 01:53 | PC.NURSE ---
Pt arm bent at elbow. RN educated and fluids are flowing at this time.
--- NOTE | 2025-01-09 01:53 | PC.NURSE ---
Red top sent to lab
[2025-01-09 02:42] LABS: Thyroid Stimulating Hormone Reflex 0.457 uIU/mL (0.465-4.68)
[2025-01-09] MEDS: LACTATED RINGERS 1,000 ML 125 ML IV CONT ×3 (03:33→22:00)
[2025-01-09 07:41] LABS: Free T4 Free Thyroxine Reflex 1.58 ng/dL (0.78-2.19)
[2025-01-09 10:35] LABS: Total Triiodothyronine (T3) 0.74 NG/ML (0.97-1.69)
--- NOTE | 2025-01-09 11:20 | PC.NURSE ---
Confused. Poor historian. [facility] in [place], [place] called to verify current home medications.
--- NOTE | 2025-01-09 13:08 | PM.IMHP ---
H&P: HPI History of Present Illness Date/Time: 01/09/25 13:08 Chief Complaint: Confusion Narrative: Patient with history of TIA, CAD, hypothyroidism brought by her family member to the ER because of confusion for 1 day. Patient has been taking care of her which recently has been discharged. Patient having-2 sleep is intact. Has been complaining of headache for past couple of days. Has been feeling nauseous yesterday morning. Otherwise patient does not have any lateralizing symptoms. Denies any chest pain, shortness of breath, abd pain, nausea vomiting. No recent head injury or trauma. In the ER patient was poor historian. Per ER note patient was able to answer I feel fine per ER note patient has been talking nonsense. In the ER vital signs unremarkable. CT head unremarkable. Lab tests concerning for mild JERRI possible dehydration. WBC 11.2. Treatment started IV fluids. Patient was admitted for further management. 01/09/25 Patient was seen and examined at bedside. She is feeling fine. Does not know why she is in the hospital. Denied any chest pain, shortness off breath, abdominal pain, nausea vomiting. She was alert oriented x4. Discussed with patient. We continued IV fluids. PT OT on board. Possible discharge tomorrow if patient continued to improve. Review of Systems Review of Systems: As reviewed above in HPI [facility] Past Medical History Medical History Encounter for immunization Occipital neuralgia of left side Muscle contraction headache Occipital neuralgia of left side Diastolic dysfunction Transient ischemic attack Hypertension Anxiety Hypothyroidism Arthritis Coronary artery disease GERD without esophagitis Non-ST elevation (NSTEMI) myocardial infarction Hyperlipidemia Surgical History Surgical History History of cataract extraction with lens replacement History of bunionectomy History of arthroplasty of left shoulder History of cardiac cath History of appendectomy Family History Family History Father Cerebrovascular accident Mother Cerebrovascular accident Family history of coronary artery disease Sibling Patient's sister is in good health Patient's brother is in good health Other Family history of cardiovascular disease Hypertension Social History Social History Social History: Surrogate medical decision maker: Geronimo Saab, spouse. Code status: Full code. Smoking status: Never smoker Second hand tobacco smoke exposure: Yes (a long time ago) Alcohol intake: current Drinks per week: 1 Alcohol use details: rarely Substance use: never Substance use type: does not use Do You Feel Safe in your Home?: Yes Lack of Transportation: No Lack of Food: Never True Current Housing: I Have Housing Concerned About Future Housing: No Difficulty Paying Gas/Electric Bills: No Difficulty Paying for Meds: No Currently Unemployed: No Education: High School Diploma/GED Difficulty w/ Childcare or Family Care: No Living arrangements: with family Additional living arrangements comments: Spiritual care concerns: Yes Agree to blood products: No Meds Home Medications and Allergies Home Medications Medication Instructions Recorded Confirmed Type nifedipine 30 mg tablet,extended 30 mg PO QAM 09/22/20 01/09/25 History release levothyroxine 75 mcg tablet See Rx Instructions .Route 07/20/24 01/09/25 Rx .COMPLEX #90 tabs atorvastatin 40 mg tablet 40 mg PO HS #90 tabs 09/01/24 01/09/25 Rx gabapentin 300 mg capsule 300 mg PO QHS #90 caps 09/01/24 01/09/25 Rx hydrochlorothiazide 12.5 mg tablet See Rx Instructions .Route 10/02/24 01/09/25 Rx .COMPLEX #180 tabs lisinopril 20 mg tablet See Rx Instructions .Route 12/17/24 01/09/25 Rx .COMPLEX #90 tabs Allergies Allergy/AdvReac Type Severity Reaction Status Date / Time meperidine AdvReac Severe Vomiting Verified 12/21/24 14:21 Vital Signs Vital Signs - 24 hr 01/08/25 19:14 01/08/25 19:49 01/08/25 20:01 Temperature 98.4 F Pulse Rate 83 86 Respiratory Rate 26 H 18 Blood Pressure 150/110 H Pulse Oximetry 94 Oxygen Delivery 01/08/25 20:07 01/09/25 01:41 01/09/25 03:14 Temperature Pulse Rate 87 Respiratory Rate 16 Blood Pressure 114/96 H 177/73 H Pulse Oximetry 97 95 Oxygen Delivery Room Air 01/09/25 04:00 01/09/25 04:07 01/09/25 05:37 Temperature 98.3 F Pulse Rate 75 74 Respiratory Rate 16 Blood Pressure 152/66 H Pulse Oximetry 96 Oxygen Delivery Room Air 01/09/25 07:40 01/09/25 08:00 Temperature Pulse Rate 104 H Respiratory Rate Blood Pressure Pulse Oximetry Oxygen Delivery Room Air Exam Narrative: GENERAL: [Well-appearing, well-nourished, and in no acute distress.] HEAD: [Normocephalic, atraumatic.] EYES: [PERRLA and EOMI.] ENT: Nares clear, no rhinorrhea or epistaxis. Mucous membranes moist. NECK: Supple. CHEST: [Clear to auscultation. No respiratory distress.] HEART: [Regular rate and rhythm]. No murmur heard. [Normal peripheral pulses.] ABDOMEN: [Soft, nondistended], [nontender], [No rigidity or guarding] EXTREMITIES: Normal range of motion. [No edema.] SKIN: Warm, dry, no rash. NEURO: [No focal deficits]. Alert and oriented x4. Full strength and sensation throughout both arms and legs, no visual deficits, no facial asymmetries, no weakness in the arms or legs, normal gait. No dysarthria or aphasia. PSYCH: [Normal mood and affect.] H&P: Results Labs Labs: Short CBC 01/08/25 Range/Units 19:11 WBC 11.2 H (4.5-10.0) K/mm3 Hgb 13.8 (12.0-15.0) g/dL Hct 41.9 (37.0-47.0) % Plt Count 250 (150-375) k/mm3 BMP 01/08/25 19:11 Sodium 134 L Potassium 3.6 Chloride 96 L Carbon Dioxide 26 BUN 20 H Creatinine 1.05 H Glucose 117 H Calcium 9.5 Cardiac Enzymes 01/08/25 01/08/25 Range/Units 19:11 21:50 Troponin I 0.026 0.018 D (0.000-0.034) ng/mL Liver Function 01/08/25 Range/Units 19:11 Total Bilirubin 1.4 H (0.2-1.3) mg/dL AST 54 H (14-36) U/L ALT 28 (6-35) U/L Alkaline Phosphatase 66 (38-126) U/L Albumin 4.8 (3.5-5.1) g/dL Urine 01/08/25 Range/Units 20:57 Urine Color Dark yellow (Yellow) Urine Appearance Clear (Clear) Urine pH 5.5 (5.0-9.0) Ur Specific [place] 1.029 (1.001-1.035) Urine Protein 3+ H (Negative) mg/dL Urine Glucose (UA) Negative (Negative) mg/dL Assessment and Plan Assessment and plan (1) Acute dehydration: Code(s): E86.0 - Dehydration Status: Acute (2) Acute confusion: Code(s): R41.0 - Disorientation, unspecified Status: Acute (3) Occipital neuralgia of left side: Code(s): M54.81 - Occipital neuralgia Status: Acute (4) Hypothyroidism: Code(s): E03.9 - Hypothyroidism, unspecified Status: Acute (5) Brain TIA: Code(s): G45.9 - Transient cerebral ischemic attack, unspecified Status: Acute (6) CAD (coronary artery disease): Code(s): I25.10 - Atherosclerotic heart disease of [place] coronary artery without angina pectoris Status: Acute Plan Acute metabolic encephalopathy Improving possible secondary to dehydration Continue IV fluid Continue monitor Dehydration Mild JERRI Improving IV fluid Weakness PTOT Continue monitor Hypothyroidism Levothyroxine CAD/HLD Statin Mild hyponatremia Monitor
[2025-01-09] MEDS: cefTRIAXone 2 GM/NS 100 ML 2 GM/100 ML BAG IVPB (13:51)
[2025-01-09 14:27] LABS: Basophils Percent Auto 0.1 % (0.2-1.2); Eosinophils Percent Auto 0.3 % (0-4.4); Hematocrit 34.4 % (37.0-47.0); Hemoglobin 11.4 g/dL (12.0-15.0); Immature Granulocyte Absolute 0.02 K/mm3 (0.00-0.031); Immature Granulocyte Percent A 0.3 % (0-0.5); Lymphocytes Absolute Auto 1.35 K/mm3 (0.9-3.2); Lymphocytes Percent Auto 17.7 % (18.3-44.2); Mean Corpuscular HGB Conc 33.1 g/dl (32-36); Mean Corpuscular Hemoglobin 29.5 pg (26-34); Mean Corpuscular Volume 88.9 fl (80-100); Mean Platelet Volume 10.3 fl (7.4-10.4); Monocytes Absolute Auto 0.7 K/mm3 (0.1-0.6); Monocytes Percent Auto 8.5 % (2.6-8.5); Neutrophils Absolute Auto 5.6 K/mm3 (1.3-6.7); Neutrophils Percent Auto 73.1 % (45.5-73.1); Platelet Count Result 206 k/mm3 (150-375); Red Blood Count 3.87 M/mm3 (4.2-5.4); Red Cell Distribution Width 13.9 % (11.5-14.5); White Blood Count 7.6 K/mm3 (4.5-10.0)
[2025-01-09 14:34] LABS: Lactic Acid Reflex 2.9 mmol/L (0.7-2.0)
[2025-01-09 16:27] LABS: Reflex Lactic Acid Yes or No Add Lactic
[2025-01-09 16:52] LABS: Lactic Acid 1.5 mmol/L (0.7-2.0)
[2025-01-09 19:36] LABS: Glucose Point of Care 130 mg/dl (65-105)
[2025-01-09] MEDS: hydrALAZINE HCL 20 MG/ML VIAL 10 MG IV PUSH (21:13)
[2025-01-09] MEDS: GABAPENTIN 300 MG CAPSULE 600 MG PO (21:14)
[2025-01-09] MEDS: ATORVASTATIN 40 MG TABLET PO (21:14)
[2025-01-10] VITALS (8 sets, daily range): BP systolic 136–156; BP diastolic 54–67; PULSE 73–105; RESP 16–20; TEMP 36.1–36.7; O2SAT 97–100
[2025-01-10] MEDS: ACETAMINOPHEN 325 MG TABLET 650 MG PO ×2 (00:19→09:25)
[2025-01-10 00:21] LABS: Glucose Point of Care 102 mg/dl (65-105)
[2025-01-10 05:34] LABS: Alanine Aminotransferase 22 U/L (6-35); Albumin Level 3.3 g/dL (3.5-5.1); Alkaline Phosphatase 46 U/L (38-126); Anion Gap 2 mmol/L (4-12); Aspartate Amino Transferase 44 U/L (14-36); Bilirubin,Total 0.8 mg/dL (0.2-1.3); Blood Urea Nitrogen 12 mg/dL (7-17); Calcium 8.4 mg/dL (8.4-10.2); Carbon Dioxide 30 mmol/L (22-30); Chloride 104 mmol/L (98-107); Estimated CRCL calculation 53 ml/min; Estimated Glomerular Filt Rate > 60; Glucose 99 mg/dL (65-110); Magnesium 1.9 mg/dL (1.6-2.3); Potassium 3.2 mmol/L (3.4-5.0); Sodium 136 mmol/L (137-145)
[2025-01-10 06:07] LABS: Hematocrit 35.2 % (37.0-47.0); Hemoglobin 11.6 g/dL (12.0-15.0); Mean Corpuscular Hemoglobin 29.4 pg (26-34); Mean Corpuscular Volume 89.1 fl (80-100); Mean Platelet Volume 10.6 fl (7.4-10.4); Platelet Count Result 211 k/mm3 (150-375); Red Blood Count 3.95 M/mm3 (4.2-5.4); Red Cell Distribution Width 14.4 % (11.5-14.5); White Blood Count 6.7 K/mm3 (4.5-10.0)
[2025-01-10 06:23] LABS: Glucose Point of Care 96 mg/dl (65-105)
[2025-01-10] MEDS: NIFEdipine 30 MG TAB.ER.24 PO (09:18)
[2025-01-10] MEDS: GABAPENTIN 300 MG CAPSULE PO (09:18)
[2025-01-10] MEDS: POTASSIUM CHLORIDE 20 MEQ PACKET (FOR LIQUID) 40 MEQ PO (10:44)
[2025-01-10 11:43] LABS: Glucose Point of Care 156 mg/dl (65-105)
--- NOTE | 2025-01-10 12:47 | P.PNIM_ITS ---
Progress Note: A&P Assessment and Plan (1) Acute dehydration: Code(s): E86.0 - Dehydration Status: Acute (2) Acute confusion: Code(s): R41.0 - Disorientation, unspecified Status: Acute (3) Occipital neuralgia of left side: Code(s): M54.81 - Occipital neuralgia Status: Acute (4) Hypothyroidism: Code(s): E03.9 - Hypothyroidism, unspecified Status: Acute (5) Brain TIA: Code(s): G45.9 - Transient cerebral ischemic attack, unspecified Status: Acute (6) CAD (coronary artery disease): Code(s): I25.10 - Atherosclerotic heart disease of [place] coronary artery without angina pectoris Status: Acute Plan Acute metabolic encephalopathy Improving possible secondary to dehydration Continue IV fluid Continue monitor Dehydration Mild JERRI Improving IV fluid Weakness PTOT Continue monitor Hypothyroidism Levothyroxine CAD/HLD Statin Mild hyponatremia Monitor Subjective Date/time seen: 01/10/25 12:47 Interval history: Patient with history of TIA, CAD, hypothyroidism brought by her family member to the ER because of confusion for 1 day. Patient has been taking care of her which recently has been discharged. Patient having-2 sleep is intact. Has been complaining of headache for past couple of days. Has been feeling nauseous yesterday morning. Otherwise patient does not have any lateralizing symptoms. Denies any chest pain, shortness of breath, abd pain, nausea vomiting. No recent head injury or trauma. In the ER patient was poor historian. Per ER note patient was able to answer I feel fine per ER note patient has been talking nonsense. In the ER vital signs unremarkable. CT head unremarkable. Lab tests concerning for mild JERRI possible dehydration. WBC 11.2. Treatment started IV fluids. Patient was admitted for further management. 01/09/25 Patient was seen and examined at bedside. She is feeling fine. Does not know why she is in the hospital. Denied any chest pain, shortness off breath, abdominal pain, nausea vomiting. She was alert oriented x4. Discussed with patient. We continued IV fluids. PT OT on board. Possible discharge tomorrow if patient continued to improve. 01/10/25 Patient was seen and examined at bedside. She is feeling fine. Denied any chest pain, shortness off breath, abdominal pain, nausea vomiting. looks more confuse today. discuss with her family at bedside. she is not back to baseline but she is improving. waiting for PT/OT evaluation. possible discharge tomorrow Review of Systems Review of Systems: As reviewed above in HPI Exam Narrative: GENERAL: [Well-appearing, well-nourished, and in no acute distress.] HEAD: [Normocephalic, atraumatic.] EYES: [PERRLA and EOMI.] ENT: Nares clear, no rhinorrhea or epistaxis. Mucous membranes moist. NECK: Supple. CHEST: [Clear to auscultation. No respiratory distress.] HEART: [Regular rate and rhythm]. No murmur heard. [Normal peripheral pulses.] ABDOMEN: [Soft, nondistended], [nontender], [No rigidity or guarding] EXTREMITIES: Normal range of motion. [No edema.] SKIN: Warm, dry, no rash. NEURO: [No focal deficits]. Alert and oriented x4. Full strength and sensation throughout both arms and legs, no visual deficits, no facial asymmetries, no weakness in the arms or legs, normal gait. No dysarthria or aphasia. PSYCH: [Normal mood and affect.] Objective Data Vital Signs Vital Signs: Vital Signs - 24 hr 01/09/25 16:00 01/09/25 17:21 01/09/25 20:00 Temperature 97.3 F L Pulse Rate 83 87 Respiratory Rate 16 Blood Pressure 158/78 H Pulse Oximetry 99 Oxygen Delivery Room Air Fraction of Inspired Oxygen 01/09/25 20:00 01/09/25 20:44 01/09/25 21:50 Temperature 97.4 F L Pulse Rate 76 71 78 Respiratory Rate 20 18 Blood Pressure 185/70 H Pulse Oximetry 97 98 Oxygen Delivery Room Air Fraction of Inspired Oxygen 21 01/10/25 00:00 01/10/25 04:00 01/10/25 06:00 Temperature 98.0 F Pulse Rate 105 H 80 78 Respiratory Rate 16 Blood Pressure 156/54 H Pulse Oximetry 97 Oxygen Delivery Fraction of Inspired Oxygen 01/10/25 08:00 01/10/25 12:00 Temperature Pulse Rate 73 75 Respiratory Rate Blood Pressure Pulse Oximetry Oxygen Delivery Fraction of Inspired Oxygen Intake/Output Intake/Output: Intake & Output 01/07/25 01/08/25 01/09/25 01/10/25 23:59 23:59 23:59 23:59 Intake Total 4320 236 Balance 4320 236 Meds/Results Medications: Active Medications Generic Name Dose Route Start Last Admin Trade Name Freq PRN Reason Stop Dose Admin Acetaminophen 650 mg 01/09/25 00:51 01/10/25 09:25 Acetaminophen 325 Mg Tablet PO 650 mg Q4H PRN Administration Mild Pain (1-3) or Fever Atorvastatin Calcium 40 mg 01/09/25 21:00 01/09/25 21:14 Atorvastatin 40 Mg Tablet PO 40 mg HS DEEDEE Administration Gabapentin 600 mg 01/09/25 21:00 01/09/25 21:14 Gabapentin 300 Mg Capsule PO 600 mg QHS DEEDEE Administration Gabapentin 300 mg 01/10/25 09:00 01/10/25 09:18 Gabapentin 300 Mg Capsule PO 300 mg DAILY DEEDEE Administration Hydralazine HCl 10 mg 01/09/25 20:26 01/09/25 21:13 Hydralazine Hcl 20 Mg/Ml Vial IV PUSH 10 mg Q8H PRN Administration Blood Pressure - High Ceftriaxone Sodium 2 gm in 100 mls @ 200 mls/hr 01/09/25 14:00 01/09/25 14:21 Rocephin 2 Gm/Ns 100 Ml IVPB Infused Q24H DEEDEE Infusion Levothyroxine Sodium 75 mcg 01/11/25 06:30 Levothyroxine Sodium 75 Mcg Tablet PO [id number] DEEDEE Nifedipine 30 mg 01/10/25 09:00 01/10/25 09:18 Nifedipine 30 Mg Tab.Er.24 PO 30 mg QAM DEEDEE Administration Ondansetron HCl 4 mg 01/09/25 00:51 Ondansetron Inj 4 Mg/2 Ml Vial IV PUSH Q4H PRN Nausea Radiology Results: ITS Impressions Head CT 01/08/25 18:49 IMPRESSION: No acute intracranial findings. Chest X-Ray 01/08/25 19:11 IMPRESSION: No acute cardiopulmonary pathology. Labs Labs: Laboratory Results - last 24 hr 01/09/25 01/09/25 01/09/25 14:08 16:38 19:33 WBC 7.6 RBC 3.87 L Hgb 11.4 L Hct 34.4 L MCV 88.9 MCH 29.5 MCHC 33.1 RDW 13.9 Plt Count 206 MPV 10.3 Immature Gran % (Auto) 0.3 Neut % (Auto) 73.1 Lymph % (Auto) 17.7 L [place] % (Auto) 8.5 Eos % (Auto) 0.3 Baso % (Auto) 0.1 L Lymph # (Auto) 1.35 [place] # (Auto) 0.7 H Eos # (Auto) 0.0 Baso # (Auto) 0.0 Abs Immat Gran (auto) 0.02 Absolute Neuts (auto) 5.6 Absolute Nucleated RBC 0.000 Nucleated RBC % 0.0 Sodium Potassium Chloride Carbon Dioxide Anion Gap BUN Creatinine Estim Creat Clear Calc Estimated GFR Glucose POC Capillary Glucose 130 H Lactic Acid 2.9 H 1.5 Calcium Magnesium Total Bilirubin AST ALT Alkaline Phosphatase Total Protein Albumin 01/10/25 01/10/25 01/10/25 00:18 05:12 06:15 WBC 6.7 RBC 3.95 L Hgb 11.6 L Hct 35.2 L MCV 89.1 MCH 29.4 MCHC 33.0 RDW 14.4 Plt Count 211 MPV 10.6 H Immature Gran % (Auto) Neut % (Auto) Lymph % (Auto) [place] % (Auto) Eos % (Auto) Baso % (Auto) Lymph # (Auto) [place] # (Auto) Eos # (Auto) Baso # (Auto) Abs Immat Gran (auto) Absolute Neuts (auto) Absolute Nucleated RBC Nucleated RBC % Sodium 136 L Potassium 3.2 L Chloride 104 Carbon Dioxide 30 Anion Gap 2 L BUN 12 D Creatinine 0.66 L Estim Creat Clear Calc 53 Estimated GFR > 60 Glucose 99 POC Capillary Glucose 102 96 Lactic Acid Calcium 8.4 Magnesium 1.9 Total Bilirubin 0.8 AST 44 H ALT 22 Alkaline Phosphatase 46 Total Protein 6.0 L Albumin 3.3 L 01/10/25 11:24 WBC RBC Hgb Hct MCV MCH MCHC RDW Plt Count MPV Immature Gran % (Auto) Neut % (Auto) Lymph % (Auto) [place] % (Auto) Eos % (Auto) Baso % (Auto) Lymph # (Auto) [place] # (Auto) Eos # (Auto) Baso # (Auto) Abs Immat Gran (auto) Absolute Neuts (auto) Absolute Nucleated RBC Nucleated RBC % Sodium Potassium Chloride Carbon Dioxide Anion Gap BUN Creatinine Estim Creat Clear Calc Estimated GFR Glucose POC Capillary Glucose 156 H Lactic Acid Calcium Magnesium Total Bilirubin AST ALT Alkaline Phosphatase Total Protein Albumin
[2025-01-10 18:27] LABS: Glucose Point of Care 164 mg/dl (65-105)
[2025-01-10] MEDS: GABAPENTIN 300 MG CAPSULE 600 MG PO (20:12)
[2025-01-10] MEDS: ATORVASTATIN 40 MG TABLET PO (20:12)
[2025-01-11] VITALS: PULSE 77
[2025-01-11 00:59] LABS: Glucose Point of Care 102 mg/dl (65-105)
[2025-01-11 04:00] VITALS: PULSE 74
[2025-01-11 05:10] VITALS: BP 155/80; PULSE 88; RESP 20; TEMP 37.3; O2SAT 98
[2025-01-11] MEDS: LEVOTHYROXINE SODIUM 75 MCG TABLET PO (05:28)
[2025-01-11 06:26] LABS: Hematocrit 37.6 % (37.0-47.0); Mean Corpuscular HGB Conc 31.9 g/dl (32-36); Mean Corpuscular Hemoglobin 29.3 pg (26-34); Mean Corpuscular Volume 91.7 fl (80-100); Mean Platelet Volume 10.6 fl (7.4-10.4); Platelet Count Result 215 k/mm3 (150-375); Red Cell Distribution Width 14.7 % (11.5-14.5); White Blood Count 6.6 K/mm3 (4.5-10.0)
[2025-01-11 06:44] LABS: Anion Gap 7 mmol/L (4-12); Blood Urea Nitrogen 10 mg/dL (7-17); Calcium 8.7 mg/dL (8.4-10.2); Carbon Dioxide 26 mmol/L (22-30); Chloride 104 mmol/L (98-107); Estimated CRCL calculation 49 ml/min; Estimated Glomerular Filt Rate > 60; Glucose 91 mg/dL (65-110); Potassium 3.7 mmol/L (3.4-5.0); Sodium 137 mmol/L (137-145)
[2025-01-11 08:00] VITALS: PULSE 92
[2025-01-11] MEDS: GABAPENTIN 300 MG CAPSULE PO (08:12)
[2025-01-11] MEDS: NIFEdipine 30 MG TAB.ER.24 PO (08:12)
[2025-01-11 12:00] VITALS: PULSE 79
--- NOTE | 2025-01-11 13:18 | PM.DS ---
DS: Admitting Diagnosis Discharge Date 01/11/25 Admitting Diagnosis acute metabolic encephalopathy DS: Discharge Diagnosis Discharge Diagnosis (1) Acute dehydration: Code(s): E86.0 - Dehydration Status: Acute (2) Acute confusion: Code(s): R41.0 - Disorientation, unspecified Status: Acute (3) Occipital neuralgia of left side: Code(s): M54.81 - Occipital neuralgia Status: Acute (4) Hypothyroidism: Code(s): E03.9 - Hypothyroidism, unspecified Status: Acute (5) Brain TIA: Code(s): G45.9 - Transient cerebral ischemic attack, unspecified Status: Acute (6) CAD (coronary artery disease): Code(s): I25.10 - Atherosclerotic heart disease of [place] coronary artery without angina pectoris Status: Acute Plan Acute metabolic encephalopathy Improving possible secondary to dehydration received IVF Continue monitor Dehydration Mild JERRI Improving Weakness PTOT Continue monitor Hypothyroidism Levothyroxine CAD/HLD Statin Mild hyponatremia Monitor DS: Summary Hospital Course Hospital Course: per HPi: Patient with history of TIA, CAD, hypothyroidism brought by her family member to the ER because of confusion for 1 day. Patient has been taking care of her which recently has been discharged. Patient having-2 sleep is intact. Has been complaining of headache for past couple of days. Has been feeling nauseous yesterday morning. Otherwise patient does not have any lateralizing symptoms. Denies any chest pain, shortness of breath, abd pain, nausea vomiting. No recent head injury or trauma. In the ER patient was poor historian. Per ER note patient was able to answer I feel fine per ER note patient has been talking nonsense. In the ER vital signs unremarkable. CT head unremarkable. Lab tests concerning for mild JERRI possible dehydration. WBC 11.2. Treatment started IV fluids. Patient was admitted for further management. 01/09/25 Patient was seen and examined at bedside. She is feeling fine. Does not know why she is in the hospital. Denied any chest pain, shortness off breath, abdominal pain, nausea vomiting. She was alert oriented x4. Discussed with patient. We continued IV fluids. PT OT on board. 01/11/25 Patient was seen and examined at bedside. She is feeling fine. Denied any chest pain, shortness off breath, abdominal pain, nausea vomiting. Alrt and oriented X4. she is not back to baseline but she is improving. PT/OT recommended HH patient has been treated for dehydration Time Spent with Patient Time attestation: Total time spent providing and/or coordinating discharge services: Exam Narrative: GENERAL: [Well-appearing, well-nourished, and in no acute distress.] HEAD: [Normocephalic, atraumatic.] EYES: [PERRLA and EOMI.] ENT: Nares clear, no rhinorrhea or epistaxis. Mucous membranes moist. NECK: Supple. CHEST: [Clear to auscultation. No respiratory distress.] HEART: [Regular rate and rhythm]. No murmur heard. [Normal peripheral pulses.] ABDOMEN: [Soft, nondistended], [nontender], [No rigidity or guarding] EXTREMITIES: Normal range of motion. [No edema.] SKIN: Warm, dry, no rash. NEURO: [No focal deficits]. Alert and oriented x4. Full strength and sensation throughout both arms and legs, no visual deficits, no facial asymmetries, no weakness in the arms or legs, normal gait. No dysarthria or aphasia. PSYCH: [Normal mood and affect.] DS: Data Data Completed and Pending Labs on day of discharge: Labs from last 24 hours 01/11/25 01/11/25 01/10/25 05:28 00:56 18:20 WBC 6.6 RBC 4.10 L Hgb 12.0 Hct 37.6 MCV 91.7 MCH 29.3 MCHC 31.9 L RDW 14.7 H Plt Count 215 MPV 10.6 H Sodium 137 Potassium 3.7 Chloride 104 Carbon Dioxide 26 Anion Gap 7 BUN 10 Creatinine 0.73 Estim Creat Clear Calc 49 Estimated GFR > 60 Glucose 91 POC Capillary Glucose 102 164 H Calcium 8.7 Preliminary micro results at discharge 01/09/25 14:18 Blood Culture - Preliminary Blood 01/09/25 14:08 Blood Culture - Preliminary Blood Discharge Plan Discharge Attending physician on discharge: Tori Almanzar Discharging Clinician: Tori Almanzar Patient Disposition: Home with Home Health Service Activity: as tolerated Diet: as tolerated Discharge Instructions: Care Coordination: Patient to have [facility] for PT/OT eval and treat, and chcf. Their phone number is [phone], if you have any questions; they will contact you to schedule their first visit. RN Please fax discharge instructions to [phone]. Patient Instructions: Antibiotic Form Patient Language: [place] Stand Alone Forms: General Discharge Information Follow-up/Referrals: Guy Jeff MD [Primary Care Provider] - 1 Week Discharge Medications: Continued atorvastatin 40 mg tablet 40 mg PO HS Qty: 90 2RF nifedipine 30 mg tablet extended release 30 mg PO QAM gabapentin 600 mg tablet 600 mg PO HS gabapentin 300 mg capsule 300 mg PO QAM Rx Instructions: may take 1 capsule in the morning and 2 capsules at bedtime, increase gradually levothyroxine 75 mcg tablet See Rx Instructions .ROUTE .COMPLEX Qty: 90 1RF Dose Instruction: TAKE 1 TABLET BY MOUTH EVERY SATURDAY THROUGH SATURDAY AT 6:30 Rx Instructions: TAKE 1 TABLET BY MOUTH EVERY SATURDAY THROUGH SATURDAY AT 6:30 lisinopril 20 mg tablet See Rx Instructions .ROUTE .COMPLEX Qty: 90 0RF Dose Instruction: TAKE 1 TABLET BY MOUTH TWICE DAILY Rx Instructions: daily Discontinued hydrochlorothiazide 12.5 mg tablet See Rx Instructions .ROUTE .COMPLEX Qty: 180 0RF Dose Instruction: TAKE 1 TABLET BY MOUTH TWICE DAILY NEEDED FOR SWELLING Rx Instructions: TAKE 1 TABLET BY MOUTH TWICE DAILY NEEDED FOR SWELLING Date of admission: 01/09/25 00:51 Primary Care Provider: Guy Jeff Admitting Provider: Tori Almanzar Attending physician on admission: Tori Almanzar Condition: Stable Care Plan Goals: follow with PCP in one week Check your blood pressure and heart rate regularly and report to PCP hold of taking hydrochlorothiazide with low sodium level and dehydration. please discuss with your PCP.
== END 2025-01-11 14:40 | disposition home health service (06) | DRG 640 ==
LOC: ANHED 20:03 → ANH3MEDSUR 01-09 02:16
PROVIDERS: Emergency Medicine; Admitting Provider Internal Medicine; Emergency Provider Student in an Organized Health Care Education/Training Program; PCP Family Medicine; Visit Provider Internal Medicine
DX: E86.0 Dehydration (principal); G93.41 Metabolic encephalopathy; N17.9 Acute kidney failure, unspecified; E03.9 Hypothyroidism, unspecified; I25.10 Atherosclerotic heart disease of native coronary artery without angina pectoris; M54.81 Occipital neuralgia; E78.5 Hyperlipidemia, unspecified; E87.1 Hypo-osmolality and hyponatremia; I10 Essential (primary) hypertension; K21.9 Gastro-esophageal reflux disease without esophagitis; M19.90 Unspecified osteoarthritis, unspecified site; Z86.73 Personal history of transient ischemic attack (TIA), and cerebral infarction without residual deficits; I25.2 Old myocardial infarction; Z90.49 Acquired absence of other specified parts of digestive tract
CPT/HCPCS: 36415; 70450; 71045; 80048; 80053; 81001; 81025; 82607; 82746; 82948; 83605; 83735; 84439; 84443; 84480; 84484; 85025; 85027; 85610; 85730; 87040; 93005; 96361; 96374; 97110; 97116; 97161; 97165; 99285; A9270; J0360; J0696; J7120

== ENCOUNTER 2025-01-19 07:19 | Outpatient (CLI) | payer MEDICARE, BC, SELFPAY ==
--- OUTSIDE RECORDS SUMMARY | 2025-01-19 07:25 | XMS_ITS | Referral Summary ---
Author Organization [facility] [address] Address [address] [place] [address] Care Team Providers Care Help Desk Coordinator Name Role Phone William Webster DO Unavailable Guy Jeff MD Primary Care Provider [phone] Allergies Active Allergy Reactions Criticality Noted Date Comments Ketoconazole Rash Medium 06/09/2020 Meloxicam Redness Low 11/05/2022 Meperidine Nausea only,Vomiting Medium 06/10/2017 Prednisolone Other (See comments) Low 01/06/2024 Medications aspirin 81 mg tablet Take 2 tablets (162 mg total) by mouth daily Active calcium carbonate-vitam in D3 500mg (1,250mg) -600 unit tablet Take by mouth 2 (two) times a day Active docusate sodium (COLACE) 100 mg capsuleIndicati ons:constipatio n Take 1 capsule (100 mg total) by mouth 2 (two) times a day Active traZODone (DESYREL) 100 mg tablet Take 0.5 tablets (50 mg total) by mouth nightly as needed 50 - 100 mg Active levothyroxine (SYNTHROID, LEVOTHROID) 75 mcg tablet Take 0.075 mcg by mouth daily Not taking on Sat/Sun 8 9 Active fluticasone (FLONASE) 50 mcg/actuation nasal spray as needed 1 8 Active clobetasoL (TEMOVATE) 0.05 % cream Apply topically as needed Active valACYclovir (VALTREX) 1 gram tablet Take 1 tablet (1,000 mg total) by mouth as needed Active lisinopriL (PRINIVIL,ZESTR IL) 20 mg tablet Take 1 tablet (20 mg total) by mouth 2 (two) times a day Active UNABLE TO FIND Sodium 50 mg tabs (100 mg daily) Active gabapentin (NEURONTIN) 300 mg capsule Take 1 capsule (300 mg total) by mouth daily 4 Active nortriptyline (PAMELOR) 25 mg capsule TAKE 1 CAPSULE BY MOUTH EVERY DAY AT BEDTIME 4 Active atorvastatin (LIPITOR) 20 mg tablet Take 1 tablet (20 mg total) by mouth daily 90 tablet 3 4 Active NIFEdipine (NIFEdipine CC) 30 mg 24 hr tablet TAKE 1 TABLET(30 MG) BY MOUTH DAILY 90 tablet 5 Active Active Problems Problem Noted Date Diagnosed Date Visit for wound check 12/28/2021 Visit for wound check 01/12/2021 Status post placement of implantable loop record er 01/05/2021 Overview (01/05/2021): Medtronic Implantable Loop Recorder. Dx; Cryptogenic Stroke. DOI 01/04/2021- Nora. [employer] remote monitoring. 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 Continue Toprol XL . Assessment & Plan (10/14/2017 11:06 AM RECORDS COORDINATOR): Ejection fraction has recovered on last echocardiogram. [...] could be either she had an old DC in the past involving the LAD or may be viral myocarditis involving the LAD territory. We will refer to cardiac rehab. Patient is very concerned about starting exercise on her own and therefore she will benefit from cardiac rehabilitation. Essential hypertension 06/10/2017 Assessment & Plan (05/26/2018 11:52 AM CDT): Blood pressure is controlled. Continue current treatment Assessment & Plan (10/14/2017 11:06 AM RECORDS COORDINATOR): Blood pressure controlled. Continue current medications Assessment & Plan (06/10/2017 11:00 AM CDT): Blood pressure slightly elevated today but she is nervous about coming here to the clinic. Will reassess next visit and keep blood pressure diary Mixed hyperlipidemia 06/10/2017 Assessment & Plan (05/26/2018 11:51 AM CDT): Lipid panel controlled. Continue statin. Assessment & Plan (10/14/2017 11:07 AM RECORDS COORDINATOR): Continue Lipitor. Assessment & Plan (06/10/2017 11:11 AM CDT): Will obtain lipid panel next visit. Intercostal pain 06/10/2017 Assessment & Plan (10/14/2017 11:07 AM RECORDS COORDINATOR): She will undergo left breast MRI. Intercostal [...] daily. Assessment & Plan (10/14/2017 11:08 AM RECORDS COORDINATOR): Will continue Plavix for a total 1 [...] Comments Blood Pressure 126/70 07/13/2024 10:18 AM RECORDS COORDINATOR Pulse 86 07/13/2024 10:18 AM RECORDS COORDINATOR Temperature 36.7 C (98 F) 01/04/2021 7:04 AM CDT Respiratory Rate 16 01/04/2021 7:04 AM CDT Oxygen Saturation 97% 07/13/2024 10:18 AM RECORDS COORDINATOR Inhaled Oxygen Concentration - - Weight 75.5 kg (166 lb 8 oz) 07/13/2024 10:18 AM RECORDS COORDINATOR Height 157.5 cm (5' 2) 07/13/2024 10:18 AM RECORDS COORDINATOR Body Mass Index 30.45 07/13/2024 10:18 AM RECORDS COORDINATOR Plan of Treatment Not on file Medical Devices Implanted Type Area Hardwood Floor Installer Device Identifier Shelf Expiration Date Model / Serial / Lot Medtronic Cardiac Rhythm Mgmt Linqsys Reveal Linq Mycarelink Insertable Loop Recorder Automatic - [id number] - [id number] Implanted:Qty: 1 on 01/04/2021 by Lion Melendez MD at [facility] Left: Chest [employer] 10/23/2021 LINQSYS / [id number] / [place] [address] [place] [address] [place] [address] MEDICARE [employer] Care Teams Help Desk Coordinator Relationship Specialty Start Date End Date Guy Jeff MD PCP - General Family Practice 05/13/23 William Webster DO Internal Medicine 12/27/20
--- OUTSIDE RECORDS SUMMARY | 2025-01-19 07:25 | XMS_ITS | Clinical Summary ---
Author Organization [facility] [place] [address] Address [address] [place] [address] Care Team Providers Care Bench Lay Out Technician Name Role Phone William Webster DO Unavailable Guy Jeff MD Primary Care Provider [phone] Allergies Active Allergy Reactions Criticality Noted Date [...] Recorder. Dx; Cryptogenic Stroke. DOI 01/04/2021- Nora. [employer] remote monitoring. 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 Continue Toprol XL . Assessment & Plan (10/14/2017 11:06 AM ADMINISTRATOR OF HOME HEALTH): Ejection fraction has recovered on last echocardiogram. [...] could be either she had an old SC in the past involving the LAD or may be viral myocarditis involving the LAD territory. We will refer to cardiac rehab. Patient is very concerned about starting exercise on her own and therefore she will benefit from cardiac rehabilitation. Essential hypertension 06/10/2017 Assessment & Plan (05/26/2018 11:52 AM CDT): Blood pressure is controlled. Continue current treatment Assessment & Plan (10/14/2017 11:06 AM ADMINISTRATOR OF HOME HEALTH): Blood pressure controlled. Continue current medications Assessment & Plan (06/10/2017 11:00 AM CDT): Blood pressure slightly elevated today but she is nervous about coming here to the clinic. Will reassess next visit and keep blood pressure diary Mixed hyperlipidemia 06/10/2017 Assessment & Plan (05/26/2018 11:51 AM CDT): Lipid panel controlled. Continue statin. Assessment & Plan (10/14/2017 11:07 AM ADMINISTRATOR OF HOME HEALTH): Continue Lipitor. Assessment & Plan (06/10/2017 11:11 AM CDT): Will obtain lipid panel next visit. Intercostal pain 06/10/2017 Assessment & Plan (10/14/2017 11:07 AM ADMINISTRATOR OF HOME HEALTH): She will undergo left breast MRI. Intercostal [...] daily. Assessment & Plan (10/14/2017 11:08 AM ADMINISTRATOR OF HOME HEALTH): Will continue Plavix for a total 1 [...] Comments Blood Pressure 126/70 07/13/2024 10:18 AM ADMINISTRATOR OF HOME HEALTH Pulse 86 07/13/2024 10:18 AM ADMINISTRATOR OF HOME HEALTH Temperature 36.7 C (98 F) 01/04/2021 7:04 AM CDT Respiratory Rate 16 01/04/2021 7:04 AM CDT Oxygen Saturation 97% 07/13/2024 10:18 AM ADMINISTRATOR OF HOME HEALTH Inhaled Oxygen Concentration - - Weight 75.5 kg (166 lb 8 oz) 07/13/2024 10:18 AM ADMINISTRATOR OF HOME HEALTH Height 157.5 cm (5' 2) 07/13/2024 10:18 AM ADMINISTRATOR OF HOME HEALTH Body Mass Index 30.45 07/13/2024 10:18 AM ADMINISTRATOR OF HOME HEALTH Plan of Treatment Health Maintenance Due Date [...] history exists Medical Devices Implanted Type Area Ginner Helper Device Identifier Shelf Expiration Date Model / Serial / Lot Medtronic Cardiac Rhythm Mgmt Linqsys Reveal Linq [employer] Insertable Loop Recorder Automatic - [id number] - [id number] Implanted:Qty: 1 on 01/04/2021 by Lion Melendez MD at [facility] Left: Chest [employer] 10/23/2021 [employer] / [id number] / [place] [address] [place] [address] MEDICARE [facility] Member Subscriber Plan / Payer ( fective 2016-Present) Name:Nadja Saab Relation to Subscriber:Self Name:Nadja Saab Payer ID:[id number] (NAIC) Group ID:[id number] Type:[facility] Address: [address] [place] [id number] Care Teams Bench Lay Out Technician Relationship Specialty Start Date End Date Guy Jeff MD PCP - General Family Practice 05/13/23 William Webster DO Internal Medicine 12/27/20
--- OUTSIDE RECORDS SUMMARY | 2025-01-19 07:25 | XMS_ITS | Clinical Summary ---
Author Organization [facility] Address [address] [place] [address] Care Team Providers Care Salvage Cutter Name Role Phone Unavailable Primary Care Provider Unavailabl e Source Comments [facility],non-owned Affiliates and Associated Physician Practices is amultiple site organization consisting of ambulatory clinics and hospital sitesin [place], [place], [place] and [place]. This disclosure is being madepursuant to the Care Everywhere program and may not contain all information available regarding this patient. Last updated 18.[facility] [employer] Allergies No known active allergies Medications * [...] on file Legal Sex Female 12:21 PM HEALTH TEACHER Gender Identity Not on file Sexual Orientation Not on file Last Filed Vital Signs Vital Sign Reading Time Taken Comments Blood Pressure 122/70 09/14/2018 12:50 PM HEALTH TEACHER Pulse 80 09/14/2018 12:50 PM HEALTH TEACHER Temperature 38.7 C (101.7 F) 09/14/2018 12:50 PM HEALTH TEACHER Respiratory Rate 18 09/14/2018 12:50 PM HEALTH TEACHER Oxygen Saturation 95% 09/14/2018 12:50 PM HEALTH TEACHER Inhaled Oxygen Concentration - - Weight 74.8 kg (165 lb) 09/14/2018 12:50 PM HEALTH TEACHER Height 157.5 cm (5' 2) 09/14/2018 12:50 PM HEALTH TEACHER Body Mass Index 30.18 09/14/2018 12:50 PM HEALTH TEACHER Plan of Treatment Health Maintenance Due [...] to complete this topic Insurance MEDICARE [place] [address] [place] [id number]
--- OUTSIDE RECORDS SUMMARY | 2025-01-19 07:25 | XMS_ITS | Data Portability ---
Author Organization [place] [facility], Main Office Address [address] [place] [address] Care Team Providers [employer] Supervisor Name Role Phone JOLANTA MONAHAN Primary Care Provider JOLANTA MONAHAN Referring Provider [phone] Assessment Encounter Date Assessment Date Assessment LastModified [...] contact patient to schedule 2023 024 [email or web address] [facility] [place] [facility], [address], [place], [address], 4 16:00:33 physical therapist referral - Please contact patient to schedule 2022 023 [email or web address] [facility] [place] [facility], [address], [place], [address], 3 16:22:44 physical therapist referral - continue 2022 023 [facility] [place] [facility], [address], [place], [address], 3 12:23:56 physical therapist referral - please contact patient to schedule 2022 023 [facility] [place] [facility], [address], [place], [address], 3 12:10:39 Procedures injection/ aspiration joint/burs a (PROC) 2023 024 [email or web address] In-Office Order, Internal Use Only DO Not Attach Compendium DO Not Attach Compendium, Do Not Delete/merge, [id number] 4 15:49:31 injection/ aspiration joint/burs a (PROC) 2023 024 [email or web address] In-Office Order, Internal Use Only DO Not Attach Compendium DO Not Attach Compendium, Do Not Delete/merge, [id number] 4 08:59:11 injection/ aspiration joint/burs a (PROC) 2022 023 [email or web address] In-Office Order, Internal Use Only DO Not Attach Compendium DO Not Attach Compendium, Do Not Delete/merge, [id number] 3 13:43:09 injection/ aspiration joint/burs a (PROC) - in office procedure, administer ed by provider 2022 023 [email or web address] In-Office Order, Internal Use Only DO Not Attach Compendium DO Not Attach Compendium, Do Not Delete/merge, [id number] 3 11:44:38 injection/ aspiration joint/burs a (PROC) - in office procedure, administer ed by provider 2022 023 [email or web address] In-Office Order, Internal Use Only DO Not Attach Compendium DO Not Attach Compendium, Do Not Delete/merge, [id number] 3 11:22:51 Surgeries None recorded. Imaging XR, hip + pelvis, bilateral 2023 024 [email or web address] [facility] [place], [address], [place], [address], 4 16:00:33 Medication Orders bupivacain e HCl 0.5 % (5 mg/mL) injection solution 2023 024 [email or web address] [facility]58951, [address], [place], [place], [id number], 4 16:00:33 Kenalog 10 mg/mL suspension for injection [address] [facility]67302, [address] [place] [address], [id number], 4 16:00:33 bupivacain e HCl 0.5 % (5 mg/mL) injection solution [address] [facility] #81335, [address] [place] [address], [id number], 4 16:00:33 Kenalog 10 mg/mL suspension for injection [address] [facility] #88298, [address] [place] [address], [id number], 4 16:00:33 bupivacain e HCl 0.5 % (5 mg/mL) injection solution [address] [facility] #06301, [address] [place] [address], [id number], 3 14:25:28 Kenalog 10 mg/mL suspension for injection [address] [facility] #89681, [address] [place] [address], [id number], 3 14:25:28 Kenalog 10 mg/mL suspension for injection [address] [facility] #77132, [address] [place] [address], [id number], 3 11:45:51 ropivacain e (PF) 5 mg/mL (0.5 %) injection solution 2022 023 [address] [facility]80140, [address] [place] [address], [id number], 3 11:45:51 prednisone 10 mg tablets in a dose pack 2022 023 [email or web address] [facility] #57963, [address] [place] [address], [id number], 11:45:51 diclofenac sodium 75 mg tablet,del ayed release 2022 023 [email or web address] [facility] #21372, [address] [place] [address], [id number], 3 11:45:51 Kenalog 10 mg/mL suspension for injection [address] [facility] #61297, [address] [place] [address], [id number], 3 11:29:38 ropivacain e (PF) 5 mg/mL (0.5 %) injection solution 2022 023 [email or web address] [address] [facility] #91349, [address] [place] [address], [id number], 3 11:29:38 diclofenac sodium 75 mg tablet,del ayed release 2022 023 [place] [address] [facility] #68432, [address] [place] [address], [id number], 3 11:29:38 Patient TargetsNo targets recorded. Patient [...] observ ation record ed. [email or web address] [facility] [place] [address] [facility] [address], [place], [address], 12/20/2023 15:49:34 Result Notes None recorded. Problems Name Problem SNOMED Code Status Onset Date Resolution Date Notes Provider Name and Address Organization Details Recorded Time Pain of right shoulder joint 5020147175718 9100 Active 2021 Not Available [facility] 3 12:56:10 Mammograph y abnormal 344804468 Active Not Available [facility] 3 12:56:10 Lesion of radial nerve 445603859 Active Not Available [facility] 3 12:56:10 Insomnia 721853175 Active Not Available [facility] 3 12:56:10 Localized, primary osteoarthr itis of the pelvic region and thigh 821873449 Active Not Available [facility] 3 12:56:10 Knee joint effusion 995039160 Active Not Available [facility] 3 12:56:11 Partial thickness rotator cuff tear 082282884 Active 2021 Not Available [facility] 3 12:56:11 Partial thickness rotator cuff tear 140014035 Active 2021 Not Available [facility] 3 12:56:11 Lateral epicondyli tis 451034307 Active Not Available [facility] 3 12:56:11 Biceps tendinitis 146400743 Active 2021 Not Available [facility] 3 12:56:11 Biceps tendinitis 231343621 Active 2021 Not Available [facility] 3 12:56:11 Gastro-eso phageal reflux disease with esophagiti s 063149482 Active Not Available [facility] 3 12:56:11 Calcific tendinitis of right shoulder 9923189958402 07 Active 2021 Not Available [facility] 3 12:56:11 Current tear of medial cartilage AND/OR meniscus of knee Active Not Available [facility] 3 12:56:11 Enthesopat hy of hip region 27256554 Active Not Available [facility] 3 12:56:11 Pain of right hip joint 1429281341170 02 Active 2021 Not Available [facility] 3 12:56:11 Trochanter ic bursitis of right hip 9271855486594 00 Active 2021 Not Available [facility] 3 12:56:11 Osteoarthr itis 868990168 Active Not Available [facility] 3 12:56:11 Hypothyroi dism 79150375 Active Not Available [facility] 3 12:56:12 Tibialis tendinitis 78171791 Active Not Available [facility] 3 12:56:12 Medial epicondyli tis 89808497 Active Not Available [facility] 3 12:56:12 Hyperlipid emia 66049519 Active Not Available [facility] 3 12:56:12 Disorder of bursa of shoulder region 74975324 Active Not Available [facility] 3 12:56:12 Essential hypertensi on 64730278 Active Not Available [facility] 3 12:56:12 Derangemen t of knee 67943728 Active Not Available [facility] 3 12:56:12 Pain in limb 64346942 Active Not Available [facility] 3 12:56:12 Pain of left shoulder joint 9630764122903 9109 Active 2022 Gracie Resendez, LAINE null, [place] [facility] 3 10:46:38 Tendinitis of left rotator cuff 8592863656769 9101 Active 2022 Carlo Lerner MD [address], [place], [address] , [facility] 3 11:26:56 Pain of right knee joint 2148196523319 00 Active 2022 Gracia Clint null, [place] [facility] 3 13:50:13 Chondromal acia of right patella 7547057917276 9108 Active 2022 Carlo Lerner MD [address], [address], [place], [address] , [facility] 3 14:13:35 Adhesive capsulitis of left shoulder 5165748648090 07 Active 2022 Carlo Lerner MD [address], [place], [address] , [facility] 3 11:32:29 Osteoarthr itis of right knee joint 9389700810506 00 Active 2022 TEAGAN Saha [address], [address], [place], [address] , [facility] 3 15:10:17 Pain of bilateral hip joints 0952617932000 9100 Active 2023 Larissa Gonzalez CNA null, [place] [facility] 4 14:52:37 Pain in pelvis 35989255 Active 2023 Larissa Gonzalez CNA null, [place] [facility] 4 15:22:54 Problem Notes None recorded. Procedures Surgical History Date Name Laterality Status Provider Name and Address Organization Details Recorded Time 05/02/20 23 Ortho - Cortisone Injection completed Carlo Lerner MD [address], [place], [address], [facility] 05/02/2023 11:31:23 03/19/20 23 Ortho - Cortisone Injection completed Carlo Lerner MD [address], [place], [address], [facility] 03/19/2023 15:31:49 02/29/20 23 Ortho - Cortisone Injection completed Carlo Lerner MD [address], [place], [address], [facility] [employer] [facility] [employer] [facility] 02/28/2023 14:13:03 11/02/19 23 Ortho - Cortisone Injection completed Carlo Lerner MD [address], [place], [address], [facility] 11/01/2022 11:25:33 Cataract Surgery completed Not Available [facility] 10/24/2022 12:53:21 Appendectomy completed Not Available [facility] 10/24/2022 12:53:21 Breast Biopsy completed Not Available [facility] 10/24/2022 12:53:21 Unlisted procedure shoulder completed Not Available [facility] 10/24/2022 12:53:21 excision of ganglion cyst of wrist completed Not Available [facility] 10/24/2022 12:53:21 Imaging Results None recorded. Procedure Notes None recorded. Medical Equipment None Reported. Allergies Allergen ID Allergen Name Allergen Category Reaction Reaction Severity Criticality Documentation Date Start Date Code Code System Note Provider Name and Address Organization Details Recorded Time 75557 prednisol one medicatio n other Not available Not available 10/24/2022 8638 RxNorm numb feeli ng Not Available [facility] 3 13:01:21 59820 Demerol medicatio n vomiting moderate Not available 10/24/2022 20914 1 RxNorm Not Available [facility] 3 13:01:21 Medications Name Sig Start Date [...] 40 mg by injection route. 2023 active [facility]: 0003- 0494- 20 Not Available [...] administe red by the provider 02/22 completed [facility]: 0409- 4276- 17 Not Available [...] 20 mg by injection route. 2022 active [facility] 91124 -064- Not Available Not Available Not Available [facility]-Serafin [...] Updated DateTime 12/20/2023 152.4 cm 31.2 kg/m2 69213.78 g Larissa Carlos, 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 [place] [facility] [employer] 12/20/2023 14:45:36 Date Recorded Body height Body mass index (BMI) Body weight Provider Name and Address Organization Details Last Updated DateTime 05/02/2023 152.4 cm 32 kg/m2 21501.15 g Larissa Carlos, 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 [place] [employer] [facility] [employer] 05/02/2023 11:07:39 Date Recorded Body height Body mass index (BMI) Body weight Provider Name and Address Organization Details Last Updated DateTime 06/06/2023 152.4 cm 31.2 kg/m2 11726.78 g Guadalupe Quinteros ATC L [employer] [facility] [employer] 06/06/2023 11:19:29 Date Recorded Body height Body mass index (BMI) Body weight Provider Name and Address Organization Details Last Updated DateTime 07/04/2023 152.4 cm 31.2 kg/m2 89257.78 g Larissa Carlos, 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 [facility] [employer] 07/04/2023 11:17:57 Date Recorded Body height Body mass index (BMI) Body weight Provider Name and Address Organization Details Last Updated DateTime 08/15/2023 154.94 cm 29.9 kg/m2 73408.59 g Larissa Carlos, 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 [place] [employer] 08/15/2023 13:20:28 Social History Question Answer Notes LastModified by Organizat ion Details LastModified Time Tobacco Smoking Status Unknown If Ever Smoked Not Available [facility] 10/24/2022 12:53:01 What Was The Date Of Your Most Recent Tobacco Screening? 02/22/2022 [id number] Information not available 10/24/2022 Sex: Unknown Functional Status Question Answer Note LastModified by Organizat ion Details LastModified Time What is your level of alcohol consumption? Occasional [id number] Information not available 10/24/2022 Mental Status None recorded. Family History Relationship Description Onset Age of this Age Resolved Age Notes LastModified by Organization Details LastModified Time Father Family history of stroke [id number] Not available 10/24/2022 12:53:21 Mother Family history of stroke [id number].191 [id number] Not available 10/24/2022 12:53:21 Unspecified Relation History of hypertension MIGRATION.898 [id number] Not available 10/24/2022 12:53:21 Unspecified Relation Heart disease MIGRATION.433 [id number] Not available 10/24/2022 12:53:21 Medical History Condition Response HEART DISEASE/HEART PROBLEMS Y SKIN PROBLEMS Y ARTHRITIS Y OSTEOPOROSIS Y USE OF NSAIDS Y USE OF BLOOD THINNERS Y HAVE YOU BEEN HOSPITALIZED OR SEEN IN [facility] IN THE PAST YEAR ? Y HYPERTENSION Y STROKE/TIA Y Gynecological HistoryNo gynecological history recorded. Obstetrics History GPAL:G 0 P 0 0 0 0 Immunizations Vaccine Type Date Status Note Provider Nam e and Address Organization Details Recorded Time Influenza, split virus, quadrivalent, PF 5 completed Not Available [facility] 10/24/2022 13:01:08 Influenza, split virus, trivalent, preservative 4 completed Not Available [facility] 10/24/2022 13:01:08 Influenza, split virus, trivalent, PF 3 completed Not Available [facility] 10/24/2022 13:01:08 Past Encounters Encounter ID Performer Location Encounter Start Date Encounter Closed Date Diagnosis/Indication Diagnosis SNOMED-CT Code Diagnosis ICD10 Code Diagnosis Note [id number] TEAGAN Saha[facility] [place] [address] [place] [address] 01/26/2021 00:00:00 01/26/2021 12:01:04 [id number] Arturo Grimaldo, PA [facility] [place] [address] [place] [address] 03/09/2021 00:00:00 03/09/2021 11:37:28 [id number] Carlo Lerner MD [facility] [place] [address] [place] [address] 09/21/2021 00:00:00 09/21/2021 10:57:22 [id number] Carlo Lerner MD [facility] [place] [address] [place] [address] 10/26/2021 00:00:00 10/26/2021 16:07:19 [id number] Carlo Lerner MD [facility] [place] [address] [place] [address] 12/07/2021 00:00:00 12/07/2021 14:28:02 [id number] Carlo Lerner MD [facility] [place] [address] [place] [address] 01/19/2022 00:00:00 01/19/2022 14:49:11 [id number] Carlo Lerner MD [facility] [place] [address] [place] [address] 01/25/2022 00:00:00 01/25/2022 12:08:10 [id number] Carlo Lerner MD [facility] [place] [address] [place] [address] 02/22/2022 00:00:00 02/22/2022 11:44:32 [id number] Carol Lerner MD [facility] [place] [address] [place] [address] 03/27/2022 00:00:00 03/27/2022 14:08:45 [id number] Carlo Lerner MD [facility] [place] [address] [place] [address] 08/09/2022 00:00:00 08/09/2022 13:46:53 [id number] Carlo Lerner MD [facility] [place] [address] [place] [address] 09/06/2022 00:00:00 09/06/2022 12:31:06 [id number] Carlo Lerner MD [facility] [place] [address] [place] [address] 11/01/2022 10:42:36 11/01/2022 12:14:59 Pain of right shoulder joint 0508712441 4273611 M25.511 Trochanter ic bursitis of right hip 3367506506 84940 M70.61 Biceps tendinitis 910139 007 M75.21 Partial th ickness rotator cuff tear 020202843 M75.101 Pain of le ft shoulder joint 2453969513 4497867 M25.512 Tendinitis of left rotator cuff 3283567320 3177643 M67.814 [id number] Carlo Lerner MD [facility] [place] [address] [place] [address] 12/18/2022 15:06:51 12/18/2022 15:47:54 Pain of right shoulder joint 9892460537 1515209 M25.511 Biceps tendinitis 440335 007 M75.21 Partial th ickness rotator cuff tear 313522940 M75.101 Tendinitis of left rotator cuff 8649620178 2563509 M67.814 [id number] Carlo Lerner MD [facility] [place] [address] [place] [address] 02/28/2023 13:45:56 02/28/2023 14:43:45 Pain of right knee joint 7710005355 64084 M25.561 [id number] Carlo Lerner MD [facility] [place] [address] [place] [address] 03/12/2023 16:15:03 03/12/2023 17:29:39 Pain of right knee joint 1957343733 53506 M25.561 [id number] Carlo Lerner MD [facility] [place] [address] [place] [address] 03/19/2023 14:36:56 03/19/2023 16:13:20 Pain of right knee joint 4058992195 19560 M25.151 [id number] Carlo Lerner MD [facility] [place] [address] [place] [address] 05/02/2023 11:01:50 05/02/2023 11:49:06 Pain of right knee joint 2012858672 83268 M25.561 Pain of le ft shoulder joint 3500375155 5120346 M25.512 Adhesive c apsulitis of left shoulder 1333351705 89802 M75.02 [id number] Erick Sadler MD [facility] [place] [address] [place] [address] 06/06/2023 11:16:32 06/06/2023 11:42:01 Pain of left shoulder joint 5122829559 2525628 M25.512 Adhesive c apsulitis of left shoulder 8512064619 00463 M75.02 [id number] Erick Sadler MD [facility] [place] [address] [place] [address] 07/04/2023 11:15:42 07/04/2023 11:35:54 Pain of left shoulder joint 2700706898 9236715 M25.512 Adhesive c apsulitis of left shoulder 4451357783 74276 M75.02 [id number] TEAGAN Saha [facility] [place] [address] [place] [address] 08/15/2023 13:17:10 08/15/2023 16:22:43 Chondromalacia of right patella 1831373144 0236203 M22.41 Pain of ri ght knee joint 6306906312 93670 M25.561 Osteoarthr itis of right knee joint 8405234015 16192 M17.11 [id number] Jorje Aggarwal MD [facility] [place] [address] [place] [address] 12/20/2023 14:42:57 12/20/2023 15:52:37 Trochanteric bursitis of right hip 2771232819 11658 M70.61 Pain of bi lateral hip joints 2398651016 1740055 M25.551 M25.552 Pain in pelvis 14564383 R10.2 Health Concerns Section Related Observation LastModified by Organization Detai ls LastModified Time None Recorded Concern Status LastModified by Organization Details LastModified Time None Recorded Advance Directives Directive None Recorded Payers Encounter Date Sequence Insurance Name Policy Number Policy Rudolph Covered Member ID Rudolph Member ID Guarantor Name 05/02/2023 1 [place] Nadja M Frerker [id number] Nadja M Frerker 05/02/2023 2 [place] 113 Nadja M Frerker [id number] Nadja M Frerker 06/06/2023 1 [place] Nadja M Frerker [id number] 1 [id number] Nadja M Frerker 06/06/2023 2 [place] 113 Nadja M Frerker [id number] Nadja M Frerker 07/04/2023 1 [place] Nadja M Frerker [id number] 1 [id number] Nadja M Frerker 07/04/2023 2 [place] 113 Nadja M Frerker [id number] Nadja M Frerker 08/15/2023 1 [place] Nadja M Frerker [id number] 1 [id number] Nadja M Frerker 08/15/2023 2 [place] 113 Nadja M Frerker [id number] Nadja M Frerker 12/20/2023 1 [place] Nadja M Frerker [id number] 1 [id number] Nadja M Frerker 12/20/2023 2 [place] 113 Nadja M Frerker [id number] Nadja M Frerker Notes Date Note Type Note Provider Name and Address Organization Details Recorded Time 05/02/2023 text/html Patient returns multiple problems. The right knee pain for the most part is resolved with therapy and she is doing well with that. She has pain is tolerable at this point she walks with a normal gait. Secondary problem is that of shoulder pain left she had previous surgery on it about 30 years ago and has developed a stiff and painful shoulder. Carlo Lerner MD [address] [facility] [address], [place], [address], [facility] [employer] [facility] [employer] 05/02/2023 11:33:09 06/06/2023 text/html Patient returns complaining of left shoulder pain. She has a frozen shoulder she was treated by Dr. Lerner previously she has been going to therapy but admits that she is really not doing her exercises every day on her own at home. We did talk about cane and marixa exercises towel over the shoulder wall walking with her arm and stretching. She states it hurts a lot to do this she is not pushing it I have advised her she needs to push it it will hurt but this will help the most if she works on aggressive stretching. According to her chart she has had 1 cortisone injection we could repeat this today if necessary she states she never picked up the diclofenac that was ordered for her I think she needs some sort of anti-inflammatory medication as well. She still stiff has pain in the shoulder with any manipulation range of motion however her strength is good just can not do much with the shoulder because of her discomfort. TEAGAN Saha [address] [facility] [address], [place], [address], [facility] [employer] [facility] [employer] 06/06/2023 11:45:32 07/04/2023 text/html Patient returns for recheck of her left shoulder. She had adhesive capsulitis ongoing treatment for the last couple of months now. She has had 2 shots of cortisone and oral prednisone followed by diclofenac 75 mg b.i.d. 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 She initially was having some issues with high blood pressure so her primary doctor told her to avoid the diclofenac however lately her blood pressure has been a little low so I have advised her that she might talk to her primary doctor about trying the diclofenac for a short course see if this helps. I have also advised her to take Tylenol just prior to her therapy exercises she has been doing formal therapy she is making good improvement with her range of motion however still has aching pain through the arc of motion or the extremes of motion. Denies any weakness she comes in today for recheck and evaluation. TEAGAN Saha [address], [place], [address], [facility] [employer] [facility] 07/04/2023 11:39:16 08/15/2023 text/html patient returns complaining of right knee pain. Previous x-rays show moderate narrowing in the medial compartment of the right knee more advanced patellofemoral articulation changes are noted with a sliver of joint space remaining. Patient comes in every now and then for cortisone injections right knee it has been several months since her last injection over the summer. Denies any new trauma or injury to the knee no erythema heat effusion or signs of infection. States she has aching pain with ambulation startup pain rest pain and night pain lately about a 7-8 on a scale of 1-10. It limits what she can do during the day has trouble squatting kneeling going up and down stairs. Despite conservative measures on her own at home her symptoms continue. Patient comes in today requesting repeat cortisone injection right knee as described. TEAGAN Saha [address], [facility] [address], [place], [address], [facility] [employer] [employer] [facility] 08/15/2023 15:11:51 12/20/2023 text/html Patient returns complaining of recurrent right hip trochanteric bursitis she also has new pain over the bilateral pelvic rim. She has had previous cortisone injection into the right hip trochanteric bursa a couple of years ago which gave her good relief. It has been over a year since we have seen her for her shoulder on the last visit. Her shoulder is doing well. For the past couple of months she has been dealing with right hip trochanteric bursitis type pain as well as pain and tenderness over the bilateral pelvic rims along the anterior superior iliac crest. Her pain is worse with activity if she takes it easy through the day the little better but particularly at night she has trouble sleeping she can not sleep on her right side because of the trochanteric pain she reports pain aching tenderness over the bilateral pelvic rims as well. Denies any trauma or injury no radicular pain down the legs no numbness or tingling has no groin pain no evidence of significant hip osteoarthritis or pathology. Despite Tylenol activity modification and some stretching exercises on her own her symptoms continue. She states the pain is about a 7 on a scale of 1-10 she comes in today for initial evaluation treatment. She can not take prednisone because she had a reaction to that previously she was told by her primary care physician not to take nonsteroidal anti-inflammatories so she is somewhat limited in her treatment that we can offer.The patient's past medical history is reviewed today in detail with her she denies any significant changes or new history. TEAGAN Saha [address] [place] [address], [facility] [address], [place], [address], [place] [facility] 12/20/2023 15:50:29 OBGyn Episode No OBEpisode recorded.
--- OUTSIDE RECORDS SUMMARY | 2025-01-19 07:25 | XMS_ITS | CONTINUITY OF CARE DOCUMENT ---
Author Name jaime sandoval Address Unknown Organization [facility] Address [address] [place] [address] Phone [phone] Care Team Providers Care Chenille Machine Operator Name Role Phone Peter PRINGLE, Hardik Unavailable [phone] ALEXANDRIA BOLAÑOS MD Unavailable [phone] ALEXANDRIA BOLAÑOS MD Unavailable [phone] INSURANCE PROVIDERS Payer name Policy type / Coverage type [place] red libertarian ID [place] Medicare [id number] [facility] [id number]
[2025-01-19 08:12] LABS: Hematocrit 37.4 % (37.0-47.0); Hemoglobin 11.9 g/dL (12.0-15.0); Mean Corpuscular HGB Conc 31.8 g/dl (32-36); Mean Corpuscular Hemoglobin 29.6 pg (26-34); Mean Platelet Volume 9.9 fl (7.4-10.4); Platelet Count Result 253 k/mm3 (150-375); Red Blood Count 4.02 M/mm3 (4.2-5.4); Red Cell Distribution Width 14.5 % (11.5-14.5); White Blood Count 4.3 K/mm3 (4.5-10.0)
[2025-01-19 09:21] LABS: Alanine Aminotransferase 25 U/L (6-35); Albumin Level 4.1 g/dL (3.5-5.1); Alkaline Phosphatase 53 U/L (38-126); Anion Gap 3 mmol/L (4-12); Aspartate Amino Transferase 37 U/L (14-36); Bilirubin,Total 0.5 mg/dL (0.2-1.3); Blood Urea Nitrogen 16 mg/dL (7-17); Carbon Dioxide 33 mmol/L (22-30); Chloride 105 mmol/L (98-107); Estimated Glomerular Filt Rate > 60; Glucose 93 mg/dL (65-110); Potassium 3.7 mmol/L (3.4-5.0); Sodium 141 mmol/L (137-145)
[2025-01-19 09:57] LABS: Thyroid Stimulating Hormone 0.694 uIU/mL (0.465-4.680)
== END 2025-01-19 07:20 | disposition home or self-care (01) ==
PROVIDERS: PCP Family Medicine; Visit Provider Family Medicine
DX: R51.9 Headache, unspecified (principal); E03.9 Hypothyroidism, unspecified; I25.10 Atherosclerotic heart disease of native coronary artery without angina pectoris; G45.9 Transient cerebral ischemic attack, unspecified; I10 Essential (primary) hypertension; G47.00 Insomnia, unspecified; K21.00 Gastro-esophageal reflux disease with esophagitis, without bleeding; E78.5 Hyperlipidemia, unspecified
CPT/HCPCS: 36415; 80053; 82306; 84443; 85027

== ENCOUNTER 2025-02-10 09:55 | Outpatient (CLI) | payer MEDICARE, BC, SELFPAY ==
[2025-02-10 10:54] LABS: Add Urine Microscopic? NO; Appearance Urine Clear (Clear); Bilirubin Urine Negative (Negative); Blood Urine Negative (Negative); Color Urine Yellow (Yellow); Glucose Urine UA Negative (Negative); Ketones Urine Negative (Negative); Leukocyte Esterase Ur Negative LEU/UL (Negative); Nitrate Urine Negative (Negative); Protein Urine Negative (Negative); Specific Grav Ur 1.011 (1.001-1.035)
--- OUTSIDE RECORDS SUMMARY | 2025-02-10 11:08 | XMS_ITS | Clinical Summary ---
Author Organization [facility] [address] Address [address] [place] [address] Care Team Providers Care Charge Entry Clerk Name Role Phone William Webster DO Unavailable Guy Jeff MD Primary Care Provider [phone] Allergies Active Allergy Reactions Criticality Noted Date [...] Recorder. Dx; Cryptogenic Stroke. DOI 01/04/2021- Nora. [employer] remote monitoring. 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 Continue Toprol XL . Assessment & Plan (10/14/2017 11:06 AM SUSPENDER MAKER): Ejection fraction has recovered on last echocardiogram. [...] treatment Assessment & Plan (10/14/2017 11:06 AM SUSPENDER MAKER): Blood pressure controlled. Continue current medications Assessment & Plan (06/10/2017 11:00 AM CDT): Blood pressure slightly elevated today but she is nervous about coming here to the clinic. Will reassess next visit and keep blood pressure diary Mixed hyperlipidemia 06/10/2017 Assessment & Plan (05/26/2018 11:51 AM CDT): Lipid panel controlled. Continue statin. Assessment & Plan (10/14/2017 11:07 AM SUSPENDER MAKER): Continue Lipitor. Assessment & Plan (06/10/2017 11:11 AM CDT): Will obtain lipid panel next visit. Intercostal pain 06/10/2017 Assessment & Plan (10/14/2017 11:07 AM SUSPENDER MAKER): She will undergo left breast MRI. Intercostal [...] daily. Assessment & Plan (10/14/2017 11:08 AM SUSPENDER MAKER): Will continue Plavix for a total 1 [...] Comments Blood Pressure 126/70 07/13/2024 10:18 AM SUSPENDER MAKER Pulse 86 07/13/2024 10:18 AM SUSPENDER MAKER Temperature 36.7 C (98 F) 01/04/2021 7:04 AM CDT Respiratory Rate 16 01/04/2021 7:04 AM CDT Oxygen Saturation 97% 07/13/2024 10:18 AM SUSPENDER MAKER Inhaled Oxygen Concentration - - Weight 75.5 kg (166 lb 8 oz) 07/13/2024 10:18 AM SUSPENDER MAKER Height 157.5 cm (5' 2) 07/13/2024 10:18 AM SUSPENDER MAKER Body Mass Index 30.45 07/13/2024 10:18 AM SUSPENDER MAKER Plan of Treatment Health Maintenance Due Date Last Done Comments Depression Screening 1945 Osteoporosis Screening-Bone Density Scan 1945 DTaP/Tdap/Td Vaccine (1 - Tdap) 02/03/1956 Hepatitis B Screening 1963 Zoster Vaccine (1 of 2) 1995 Well Visit 65+ 2010 Pneumococcal vaccine 65+ (2 of 2 - PPSV23) 06/26/2018 06/26/2017 Fall Risk Assessment 01/04/2022 01/04/2021 Influenza Vaccine (Season Ended) 2025 06/10/2018, 06/26/2017, 06/21/2016, Additional history exists Medical Devices Implanted Type Area Steel Pan Form Placing Supervisor Device Identifier Shelf Expiration Date Model / Serial / Lot Medtronic Cardiac Rhythm Mgmt Linqsys Reveal Linq Mycarelink Insertable Loop Recorder Automatic - [id number] - [id number] Implanted:Qty: 1 on 01/04/2021 by Lion Melendez MD at [facility] Left: Chest [employer] 10/23/2021 LINQSYS / [id number] / [place] [address] [place] [address] MEDICARE [facility] Address: [address] [place] [address] Care Teams Charge Entry Clerk Relationship Specialty Start Date End Date Guy Jeff MD PCP - General Family Practice 05/13/23 William Webster DO Internal Medicine 12/27/20
--- OUTSIDE RECORDS SUMMARY | 2025-02-10 11:08 | XMS_ITS | Referral Summary ---
Author Organization [facility] [address] Address [address] [place] [address] Care Team Providers Care Ammunition Officer Name Role Phone William Webster DO Unavailable Guy Jeff MD Primary Care Provider [phone] Allergies Active Allergy Reactions Criticality Noted Date [...] Recorder. Dx; Cryptogenic Stroke. DOI 01/04/2021- Nora. [employer] remote monitoring. 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 Continue Toprol XL . Assessment & Plan (10/14/2017 11:06 AM CERAMIC TILER): Ejection fraction has recovered on last echocardiogram. [...] could be either she had an old MD in the past involving the LAD or may be viral myocarditis involving the LAD territory. We will refer to cardiac rehab. Patient is very concerned about starting exercise on her own and therefore she will benefit from cardiac rehabilitation. Essential hypertension 06/10/2017 Assessment & Plan (05/26/2018 11:52 AM CDT): Blood pressure is controlled. Continue current treatment Assessment & Plan (10/14/2017 11:06 AM CERAMIC TILER): Blood pressure controlled. Continue current medications Assessment & Plan (06/10/2017 11:00 AM CDT): Blood pressure slightly elevated today but she is nervous about coming here to the clinic. Will reassess next visit and keep blood pressure diary Mixed hyperlipidemia 06/10/2017 Assessment & Plan (05/26/2018 11:51 AM CDT): Lipid panel controlled. Continue statin. Assessment & Plan (10/14/2017 11:07 AM CERAMIC TILER): Continue Lipitor. Assessment & Plan (06/10/2017 11:11 AM CDT): Will obtain lipid panel next visit. Intercostal pain 06/10/2017 Assessment & Plan (10/14/2017 11:07 AM CERAMIC TILER): She will undergo left breast MRI. Intercostal [...] daily. Assessment & Plan (10/14/2017 11:08 AM CERAMIC TILER): Will continue Plavix for a total 1 [...] Comments Blood Pressure 126/70 07/13/2024 10:18 AM CERAMIC TILER Pulse 86 07/13/2024 10:18 AM CERAMIC TILER Temperature 36.7 C (98 F) 01/04/2021 7:04 AM CDT Respiratory Rate 16 01/04/2021 7:04 AM CDT Oxygen Saturation 97% 07/13/2024 10:18 AM CERAMIC TILER Inhaled Oxygen Concentration - - Weight 75.5 kg (166 lb 8 oz) 07/13/2024 10:18 AM CERAMIC TILER Height 157.5 cm (5' 2) 07/13/2024 10:18 AM CERAMIC TILER Body Mass Index 30.45 07/13/2024 10:18 AM CERAMIC TILER Plan of Treatment Not on file Medical Devices Implanted Type Area Neurology Technologist Device Identifier Shelf Expiration Date Model / Serial / Lot Medtronic Cardiac Rhythm Mgmt Linqsys Reveal Linq Mycarelink Insertable Loop Recorder Automatic - [id number] - [id number] Implanted:Qty: 1 on 01/04/2021 by Lion Melendez MD at [facility] Left: Chest [employer] 10/23/2021 LINQSYS / [id number] / [place] [address] [place] [address] [place] [address] MEDICARE BCBS FEDERAL Care Teams Ammunition Officer Relationship Specialty Start Date End Date Guy Jeff MD PCP - General Family Practice 05/13/23 William Webster DO Internal Medicine 12/27/20
--- OUTSIDE RECORDS SUMMARY | 2025-02-10 11:09 | XMS_ITS | Clinical Summary ---
Author Organization [facility] Address [address] [place] [address] Care Team Providers Care Development Scientist Name Role Phone Unavailable Primary Care Provider Unavailabl e Source Comments [facility],non-owned Affiliates and Associated Physician Practices is amultiple site organization consisting of ambulatory clinics and hospital sitesin [place], [place], [place] and [place]. This disclosure is being madepursuant to the Care Everywhere program and may not contain all information available regarding this patient. Last updated 18.[facility] [employer] Allergies No known active allergies Medications * [...] on file Legal Sex Female 12:21 PM USED CAR MAKE READY WORKER Gender Identity Not on file Sexual Orientation Not on file Last Filed Vital Signs Vital Sign Reading Time Taken Comments Blood Pressure 122/70 09/14/2018 12:50 PM USED CAR MAKE READY WORKER Pulse 80 09/14/2018 12:50 PM USED CAR MAKE READY WORKER Temperature 38.7 C (101.7 F) 09/14/2018 12:50 PM USED CAR MAKE READY WORKER Respiratory Rate 18 09/14/2018 12:50 PM USED CAR MAKE READY WORKER Oxygen Saturation 95% 09/14/2018 12:50 PM USED CAR MAKE READY WORKER Inhaled Oxygen Concentration - - Weight 74.8 kg (165 lb) 09/14/2018 12:50 PM USED CAR MAKE READY WORKER Height 157.5 cm (5' 2) 09/14/2018 12:50 PM USED CAR MAKE READY WORKER Body Mass Index 30.18 09/14/2018 12:50 PM USED CAR MAKE READY WORKER Plan of Treatment Health Maintenance Due Date [...]
--- OUTSIDE RECORDS SUMMARY | 2025-02-10 11:09 | XMS_ITS | CONTINUITY OF CARE DOCUMENT ---
Author Name jaime sandoval Address Unknown Organization [facility] Address [address] [place] [address] Phone [phone] Care Team Providers Care Wood Preparation Supervisor Name Role Phone Peter PRINGLE, Hardik Unavailable [phone] ALEXANDRIA BOLAÑOS MD Unavailable ALEXANDRIA BOLAÑOS MD Unavailable [phone] INSURANCE PROVIDERS Payer name Policy type / Coverage type Covert red constitution party ID [place] MED[place] Medicare [id number] [facility] [place] [facility] [id number]
== END 2025-02-10 09:56 | disposition home or self-care (01) ==
PROVIDERS: PCP Family Medicine; Visit Provider Nurse Practitioner Family
DX: R41.0 Disorientation, unspecified (principal)
CPT/HCPCS: 81003; 87086

== ENCOUNTER 2025-04-19 14:20 | Outpatient (CLI) | payer MEDICARE, BC, SELFPAY ==
--- NOTE | ~2025-04-19 | MR_ITS ---
EXAMINATION: MR brain/brain stem wo con DATE: 04/19/2025 15:43 INDICATION: Amnesia TECHNIQUE: Magnetic resonance imaging (MRI) of the brain and brainstem was performed without intravenous contrast. Sequences included sagittal and axial T1-weighted SE, axial diffusion-weighted FS SE, axial T2*-weighted GRE, axial T2-weighted FLAIR, and axial T2-weighted FSE. Apparent diffusion coefficient (ADC) maps were created. COMPARISON: Head CT dated 01/08/2025 FINDINGS: There are no areas of restricted diffusion to suggest acute infarction. No intracranial hemorrhage or abnormal intracranial mass lesion. There are scattered areas of nonspecific increased T2-weighted signal intensity in the cerebral white matter, predominantly involving the deep and periventricular whi te matter. There are no intraparenchymal signal abnormalities seen on the other pulse sequences. The ventricles are symmetric and normal in size. There are no abnormal extra-axial fluid collections. Flow voids are seen in the cerebral arteries on the T2-weighted sequences consistent with their expected patency. Mild mucosal thickening bilateral ethmoid sinuses. Changes of bilateral intraocular lens replacement. Visualized orbits and soft tissues are unremarkable. IMPRESSION: 1. No acute intracranial process. 2. Normal aging brain with moderate scattered nonspecific white matter T2 hyperintensity which is within normal limits for age and likely sequela of chronic small vessel ischemic disease. Reviewed, dictated and finalized at location A. IMPRESSION: 1. No acute intracranial process. 2. Normal aging brain with moderate scattered nonspecific white matter T2 hyper intensity which is within normal limits for age and likely sequela of chronic s mall vessel ischemic disease.
== END 2025-04-19 14:21 | disposition home or self-care (01) ==
LOC: MICIMG 14:21
PROVIDERS: PCP Family Medicine; Visit Provider Nurse Practitioner Family
DX: R41.3 Other amnesia (principal); R41.0 Disorientation, unspecified
CPT/HCPCS: 70551

== ENCOUNTER 2025-06-16 13:18 | Outpatient (CLI) | payer MEDICARE, BC, SELFPAY ==
--- NOTE | ~2025-06-16 | US_ITS ---
EXAMINATION: US carotid duplex BI DATE: 06/16/2025 14:23 INDICATION: TIA TECHNIQUE: Grayscale, color Doppler, and pulsed Doppler images of the cervical carotid arteries were obtained. The degree of vessel stenosis is placed in one of the following categories: normal, <50%, 50-69%, >=70% but less than near- occlusion, near-occlusion, or total occlusion. Note that percent stenosis relative to normal distal artery lumen diameter is indirectly measured from velocity measurements as described by Newton, et al. Radiology 2003; 229:340-346. Notes: Normal: Peak systolic velocity <125 centimeters/sec and no plaque <50%. Peak systolic velocity <125 (EDV <40; ICA/CCA PSV ratio <2.0; used these factors only a tandem lesions or low cardiac output or contralateral disease) 50-69 %: PSV 125-230 (EDV 40-100; ratio 2-4) >= 70% but less than near occlusion: PSV greater than 230 (EDV > 100; ratio> 4.0) Near Occlusion: PSV that is variable; markedly narrowed lumen Occlusion: Absent flow on color/spectral Doppler and no lumen on ferrari scale. COMPARISON: None. FINDINGS: RIGHT: The right common carotid artery (CCA) peak systolic velocity (PSV) is 84 cm/s. The right internal carotid artery (ICA) PSV is 67 cm/s. The right ICA end- diastolic velocity (EDV) is 13 cm/s. The right ICA/CCA PSV ratio is 1.1. The external carotid artery (ECA) PSV is 124 cm/s. There is antegrade flow in the right vertebral artery. LEFT: The left CCA PSV is 68 cm/s. The left ICA PSV is 65 cm/s. The left ICA EDV is 13 cm/s. The left ICA/CCA PSV ratio is 1.2. The ECA PSV is 84 cm/s. There is antegrade flow in the left vertebral artery. IMPRESSION: 1. Less than 50% stenosis in the right internal carotid artery by sonographic criteria. 2. Less than 50% stenosis in the left internal carotid artery by sonographic criteria. Reviewed, dictated and finalized at location O. IMPRESSION: 1. Less than 50% stenosis in the right internal carotid artery by sonographic timmy goodson. 2. Less than 50% stenosis in the left internal carotid artery by sonographic diego batres.
== END 2025-06-16 13:19 | disposition home or self-care (01) ==
PROVIDERS: PCP Family Medicine; Visit Provider Psychiatry & Neurology Neurology
DX: I65.23 Occlusion and stenosis of bilateral carotid arteries (principal)
CPT/HCPCS: 93880